=== PATIENT | male | born 1955 | race Caucasian/White ===

== ENCOUNTER → 2016-10-05 | Day surgery (SDC) | payer OTHER ==
[~2016-10-05] MED LIST: Acetaminophen TAB* 325 MG PO PRN; Buffered Lidocaine 1% SYR 3ML* 3 ML/SYR SYRINGE INTRADERM ONE; Buffered Lidocaine 1% SYR 3ML* 3 ML/SYR SYRINGE ONE; Cyclopentolate 1% OPTH.SOL* 2 ML BTL ONE; Flurbiprofen 0.03% OPTH.SOL* 2.5 ML BTL ONE; Lidocaine 1% MPF* 2 ML VIAL ONE; Lidocaine 2% EPI 1:200000 MPF* 20 ML VIAL ONE; Midazolam* 1 MG/ML 2 ML VIAL (2 MG) ONE; Neomycin/Polymy/Dex OPTH.SUSP* MAXITROL 0.1% 5 ML ONE; Phenylephrine 2.5% OPTH.SOL* 2 ML BTL ONE; Povidone Iodine 5% OPTH* 30 ML BTL ONE; Proparacaine 0.5% OPHTH.SOL* 15 ML BTL ONE; acetaZOLAMIDE TAB* 250 MG ONE
[2016-10-05 11:32] VITALS: BP 136/70
--- NOTE | 2016-10-05 13:05 | OP ---
DATE OF OPERATION: 10/05/16 - LOCATED WITHIN [facility] DATE OF : 51 SURGEON: Wayne Eid M.D. PREOPERATIVE DIAGNOSIS: Cataract, right eye. POSTOPERATIVE DIAGNOSIS: Cataract, right eye. OPERATIVE PROCEDURE: Phacoemulsification, right eye, with IOL. DESCRIPTION OF PROCEDURE: The patient was brought to the operating room after being given 1/2% Alcaine with epinephrine drops in the preoperative area. The eye was prepped and draped in the usual sterile fashion. Sterile drape and eyelid speculum were placed. Again, topical 1/2% Alcaine with epinephrine was given. A paracentesis incision was made at the 9 o'clock position with the No.75 blade. Clear cornea incision 2.2 x 2.2-mm was created at the 12 o'clock position starting at the anterior limbus using the 2.2-mm keratome. The anterior chamber was irrigated with 0.4 mL of 1% non-preservative intracameral lidocaine and filled with DisCoVisc. A capsulorrhexis was completed using the cystotome and the Utrata forceps. Hydrodissection was performed with balanced salt solution. The lens nucleus was removed with the Phacoemulsification handpiece without incident. Cortex was removed with the irrigation-aspiration handpiece. The capsular bag was re-inflated using DisCoVisc and an SN60WF 23.5 implant was inserted with the shooter. The irrigation-aspiration handpiece was used to remove all residual DisCoVisc. The eye was refilled with balanced salt solution and the wound checked and found to be watertight. Topical Maxitrol drops were given. The pupil was very small and a Malyugin ring was used to dilate the pupil prior to capsulorrhexis, removed after insertion of the lens. Indication for complex cataract surgery: Iris abnormalities requiring pupil dilation device. [id number]/[facility] #: [id number] MTDD
== END | disposition home or self-care (01) ==
LOC: OREAST 08:03
PROVIDERS: ATTEND Specialist
DX: H25.11 Age-related nuclear cataract, right eye (principal); H21.569 Pupillary abnormality, unspecified eye; E11.9 Type 2 diabetes mellitus without complications; Z87.891 Personal history of nicotine dependence; E78.5 Hyperlipidemia, unspecified; G71.11 Myotonic muscular dystrophy
CPT/HCPCS: A9270-GY; J2250; V2632

== ENCOUNTER → 2016-10-12 | Day surgery (SDC) | payer OTHER ==
[~2016-10-12] MED LIST changes: +fentaNYL* 50 MCG/ML 2 ML VIAL (100 MCG VIAL) ONE
[2016-10-12 09:22] VITALS: BP 133/78
--- NOTE | 2016-10-12 23:05 | OP ---
DATE OF OPERATION: 10/12/16 - [facility] DATE OF : 51 SURGEON: Wayne Eid MD PREOPERATIVE DIAGNOSIS: Cataract, left eye. POSTOPERATIVE DIAGNOSIS: Cataract, left eye. OPERATIVE PROCEDURE: Phacoemulsification, left eye, with IOL. PROCEDURE: The patient was brought to the operating room after being given 1/2 % Alcaine with epinephrine drops in the preoperative area. The eye was prepped and draped in the usual sterile fashion. Sterile drape and eyelid speculum were placed. Again, topical 1/2% Alcaine with epinephrine was given. A paracentesis incision was made at the 3 o'clock position with the No.75 blade. Clear cornea incision 2.2 x 2.2-mm was created at the 6 o'clock position starting at the anterior limbus using the 2.2-mm keratome. The anterior chamber was irrigated with 0.4 mL of 1% non-preservative intracameral lidocaine and filled with DisCoVisc. A capsulorrhexis was completed using the cystotome and the Utrata forceps. Hydrodissection was performed with balanced salt solution. The lens nucleus was removed with the Phacoemulsification handpiece without incident. Cortex was removed with the irrigation-aspiration handpiece. The capsular bag was re-inflated using DisCoVisc and an [id number] 23.5 implant was inserted with the shooter. The irrigation-aspiration handpiece was used to remove all residual DisCoVisc. The eye was refilled with balanced salt solution and the wound checked and found to be watertight. Topical Maxitrol drops were given. A Malyugin ring was used to dilate the pupil prior to capsulorrhexis and removed after insertion of the lens. Indication for complex cataract surgery is iris abnormalities requiring pupil dilation device. [id number]/[facility] #: [id number] MTDKayla
== END | disposition home or self-care (01) ==
LOC: OREAST 06:47
PROVIDERS: ATTEND Specialist
DX: H25.12 Age-related nuclear cataract, left eye (principal); E11.9 Type 2 diabetes mellitus without complications; I10 Essential (primary) hypertension
CPT/HCPCS: A9270-GY; J2250; J3010; V2632

== ENCOUNTER 2017-05-26 11:48 | Day surgery (SDC) | payer OTHER ==
--- NOTE | 2017-05-24 16:58 | HP ---
CC: Dr. Mccullough * DATE OF ADMISSION: 05/26/2017. AGE: 62-year-old male. ADMITTING DIAGNOSES: 1. Gross hematuria. 2. Left flank pain. 3. Left renal calculus. PLANNED PROCEDURE: Left retrograde and left stent insertion (to be followed in the near future by shockwave lithotripsy). SURGEON: Dr. Matthew Lizama. HISTORY OF PRESENT ILLNESS: Aly Ren is a 62-year-old gentleman with a history of recurrent bilateral renal calculi. He had been evaluated for left- sided pain and gross hematuria, and was noted to have a 1.5 cm calculus in the left renal pelvis which appeared to have moved from its prior location in the lower pole of the left kidney. In addition, he has an 8 mm calculus in the lower pole of the left kidney. He is now being brought in for left stent insertion. As I suspect, the pain and hematuria are due to episodic movement of the calculus. He will probably require lithotripsy in the near future. PAST MEDICAL HISTORY: Significant for: 1. Recurrent renal calculi. 2. Myotonic dystrophy. 3. Diabetes mellitus. 4. High cholesterol. MEDICATIONS ON ADMISSION: 1. Flomax 0.8 mg daily. 2. Metformin 500 mg b.i.d. 3. Aspirin 81 mg a day. 4. Doxepin one tablet daily. 5. Atorvastatin one tablet daily. ALLERGIES: CODEINE. SMOKING HISTORY: He is a long-standing smoker with a 40+ pack year smoking history. PHYSICAL EXAMINATION GENERAL: Pleasant, uncomfortable appearing, middle-aged gentleman. VITAL SIGNS: Blood pressure 116/72, pulse 89 per minute and regular, oxygen saturation 98 percent, temperature 96.4. CARDIOVASCULAR: Regular rate and rhythm. S1, S2. LUNGS: Clear bilaterally. ABDOMEN: Soft with mild left flank tenderness. IMPRESSION: [id number]-[id number]-tmtn-old gentleman with episodic left-sided pain and gross hematuria with a 1.5 cm calculus in the left renal pelvis. PLAN: Planned procedure is left stent insertion to be followed in the near future by lithotripsy. [id number]/[facility] #: [id number] MTDD
[~2017-05-26 11:48] MED LIST changes: -Acetaminophen TAB* 325 MG PO PRN; +Buffered Lidocaine 0.9% SYRIN* 5 ML/SYR SYRINGE INTRADERM ONE; -Buffered Lidocaine 1% SYR 3ML* 3 ML/SYR SYRINGE INTRADERM ONE; -Buffered Lidocaine 1% SYR 3ML* 3 ML/SYR SYRINGE ONE; -Cyclopentolate 1% OPTH.SOL* 2 ML BTL ONE; +Famotidine IV* 10 MG/ML 2 ML (20 mg) IV ONE; -Flurbiprofen 0.03% OPTH.SOL* 2.5 ML BTL ONE; -Lidocaine 1% MPF* 2 ML VIAL ONE; -Lidocaine 2% EPI 1:200000 MPF* 20 ML VIAL ONE; -Midazolam* 1 MG/ML 2 ML VIAL (2 MG) ONE; -Neomycin/Polymy/Dex OPTH.SUSP* MAXITROL 0.1% 5 ML ONE; -Phenylephrine 2.5% OPTH.SOL* 2 ML BTL ONE; -Povidone Iodine 5% OPTH* 30 ML BTL ONE; -Proparacaine 0.5% OPHTH.SOL* 15 ML BTL ONE; -acetaZOLAMIDE TAB* 250 MG ONE; -fentaNYL* 50 MCG/ML 2 ML VIAL (100 MCG VIAL) ONE
[2017-05-26] MEDS ORDERED: Famotidine IV* 10 MG/ML 2 ML (20 mg) ONE (11:51)
[2017-05-26] MEDS ORDERED: cefTRIAXone(*) 2 GM ADDV.VIAL IVPB ONE (11:51)
[2017-05-26] MEDS ORDERED: Buffered Lidocaine 0.9% SYRIN* 5 ML/SYR SYRINGE ONE (11:52)
[2017-05-26] MEDS ORDERED: Ondansetron INJ* 2 MG/ML VIAL ONE (12:14)
[2017-05-26] MEDS ORDERED: Midazolam* 1 MG/ML 5 ML VIAL (5 MG) ONE (12:14)
[2017-05-26] MEDS ORDERED: Propofol* 10 MG/ML 20 ML BTL IV PUSH ONE (12:14)
[2017-05-26] MEDS ORDERED: Ketorolac INJ* 30 MG/ML 1 ML VIAL ONE (12:14)
[2017-05-26] MEDS ORDERED: Lidocaine 2% PF * 5 ML VIAL ONE (12:14)
[2017-05-26] MEDS ORDERED: Dexamethasone IV* 4 MG/ML 1 ML (4 MG) ONE (12:14)
[2017-05-26] MEDS ORDERED: fentaNYL* 50 MCG/ML 2 ML VIAL (100 MCG VIAL) ONE (12:14)
[2017-05-26] MEDS ORDERED: oxyCODONE TAB* 5 MG TAB PO PRN (12:34)
[2017-05-26] MEDS ORDERED: Acetaminophen TAB* 325 MG PO PRN (12:34)
[2017-05-26] MEDS ORDERED: HYDROmorphone INJ* 1 MG/ML CARPUJECT SYRINGE IV PRN (12:34)
[2017-05-26] MEDS ORDERED: DiMENhydriNATE IV* 50 MG/ML VIAL IV PUSH PRN (12:34)
[2017-05-26] MEDS ORDERED: Iohexol 180 (CONTRAST) 10 ML SDV IV ONE (12:54)
--- NOTE | 2017-05-26 14:18 | RAD ---
INDICATION: Left ureteral stent insertion COMPARISONS: February 29, 2016 TECHNIQUE: Fluoroscopy was provided for a retrograde pyelogram and stent placement. Total fluoroscopy time is: 3 seconds FINDINGS: Spot images demonstrate contrast within the renal parenchyma consistent. A ureteral stent is noted IMPRESSION: FLUOROSCOPY WAS PROVIDED FOR A RETROGRADE PYELOGRAM AND STENT PLACEMENT CPT II Codes: 6045F
[2017-05-26 14:55] VITALS: BP 126/72
--- NOTE | 2017-05-27 05:55 | OP ---
CC: Dr. Mccullough * DATE OF OPERATION: 05/26/17 - [facility] DATE OF : 51 SURGEON: Matthew Lizama MD ANESTHESIOLOGIST: Dr. Merino. ANESTHESIA: Intravenous sedation. PRE-OP DIAGNOSES: 1. Left renal calculus. 2. Gross hematuria. POST-OP DIAGNOSES: 1. Left renal calculus. 2. Gross hematuria. OPERATIVE PROCEDURE: Cystoscopy, left retrograde pyelogram, left stent insertion. COMPLICATIONS: None. POSTOPERATIVE CONDITION: Stable. STENT USED: 6-Icelandic stent left ureter. INDICATIONS: Aly Ren is a 62-year-old gentleman who was evaluated for gross hematuria. He was noted to have a calculus in the left renal pelvis and is now being brought in for left stent insertion to be followed in the near future by lithotripsy. DESCRIPTION OF PROCEDURE: After induction of intravenous sedation, patient was placed in dorsal lithotomy position. Sequential compression devices were in place and functioning. Initial cystoscopy revealed a normal-appearing urethra, mildly enlarged prostate, the bladder was examined. The left orifice was intubated with a guidewire and left retrograde pyelogram revealed mild fullness of the left collecting system. A 6-Icelandic stent was introduced and positioned under fluoroscopy with good proximal and distal positioning obtained. The patient tolerated the procedure satisfactorily and was transferred back to the recovery area in stable condition. [id number]/[facility] #: [id number] MTDD
== END 2017-05-26 14:57 | disposition home or self-care (01) ==
LOC: OR 11:48
PROVIDERS: ATTEND Urology
DX: N20.0 Calculus of kidney (principal); R31.0 Gross hematuria; Z96.0 Presence of urogenital implants; N40.0 Benign prostatic hyperplasia without lower urinary tract symptoms; E11.9 Type 2 diabetes mellitus without complications; Z79.84 Long term (current) use of oral hypoglycemic drugs; E78.00 Pure hypercholesterolemia, unspecified; F17.200 Nicotine dependence, unspecified, uncomplicated; F41.9 Anxiety disorder, unspecified; F32.9 Major depressive disorder, single episode, unspecified; Z88.5 Allergy status to narcotic agent; Z79.82 Long term (current) use of aspirin
CPT/HCPCS: 74420; C1876; J0696; J1100; J1885; J2250; J2405; J2704; J3010

== ENCOUNTER 2017-06-05 09:15 | Day surgery (SDC) | payer OTHER ==
[~2017-06-05 09:15] MED LIST changes: -Famotidine IV* 10 MG/ML 2 ML (20 mg) IV ONE
[2017-06-05] MEDS ORDERED: Buffered Lidocaine 0.9% SYRIN* 5 ML/SYR SYRINGE ONE (09:26)
[2017-06-05] MEDS ORDERED: cefTRIAXone(*) 2 GM ADDV.VIAL IVPB ONE (09:26)
--- NOTE | 2017-06-05 09:41 | RAD ---
Indication: Prelithotripsy. [facility] Associate Professor film of the abdomen demonstrates left ureteral stent in place. Calcification is noted adjacent to the L3 transverse process on the left. Additional calcifications are noted in the lower pole left kidney. IMPRESSION: Calcification presumably next to the ureter at the L3 spinous process of the left with additional calcification lower pole left kidney.
[2017-06-05] MEDS ORDERED: Midazolam* 1 MG/ML 2 ML VIAL (2 MG) ONE (10:47)
[2017-06-05] MEDS ORDERED: fentaNYL* 50 MCG/ML 2 ML VIAL (100 MCG VIAL) ONE (10:47)
[2017-06-05] MEDS ORDERED: fentaNYL* 50 MCG/ML 2 ML VIAL (100 MCG VIAL) IV PRN (11:16)
[2017-06-05] MEDS ORDERED: oxyCODONE/Acetamin 5/325 MG* TAB PO PRN (11:16)
[2017-06-05] MEDS ORDERED: Chloroprocaine 2%* 20 ML VIAL ONE (11:25)
[2017-06-05 13:07] VITALS: BP 132/76
--- NOTE | 2017-06-05 14:11 | RAD ---
Indication: Status post lithotripsy. Left renal calculi Comparison is made with exam done earlier the same day. Single view of the abdomen demonstrates left ureteral stent in place. Calcifications are noted overlying the lower pole of the left kidney previously identified calcification adjacent to the L3 transverse process is no longer present. IMPRESSION: Calculi in the left ureter appears 3 no longer present.
--- NOTE | 2017-06-06 04:43 | OP ---
CC: Dr. Meghan Mccullough; Dr. Lizama.* OPERATIVE REPORT: DATE OF OPERATION: 06/05/17 - [facility] DATE OF : 51 SURGEON: Matthew Lizama MD ANESTHESIOLOGIST: Dr. Paula. ANESTHESIA: Spinal. PRE-OP DIAGNOSIS: Left renal calculi. POST-OP DIAGNOSIS: Left renal calculi. OPERATIVE PROCEDURE: Shockwave lithotripsy of left renal calculi. COMPLICATIONS: None. POSTOPERATIVE CONDITION: Stable. INDICATIONS: Aly Ren is a 62-year-old gentleman who was evaluated and noted to have a 1.5 cm calculus in the left renal pelvis. In addition, he has a 7 to 8 mm calculus in the lower pole of the left kidney. I have discussed the procedure of lithotripsy in detail with him including possible risks of bleeding, infection, incomplete fragmentation, and possible injury to the kidney. He understands and wishes to proceed as planned. DESCRIPTION OF PROCEDURE: After induction of spinal anesthesia, patient was placed on the lithotripsy table in supine position. The dominant calculus, which was in the renal pelvis was identified using fluoroscopy and shockwave lithotripsy was commenced at a rate of 90 shocks per minute. Intermittent fluoroscopy revealed good localization and fragmentation and a total of 1400 shocks were administered. Next attention was directed to the lower pole calculus, which was identified using fluoroscopy and targeted with shockwaves at a rate of 90 shocks per minute. After the initial 300 shocks were delivered to this calculus, there was a pause in lithotripsy for several minutes in an effort to minimize any potential trauma to the kidney. A total of 1000 shocks were administered to this calculus for a total amount of 2400 shocks during the procedure. Patient tolerated the procedure satisfactorily and was transferred back to the recovery area in stable condition. [id number]/[facility] #: [id number] [facility]
== END 2017-06-05 13:42 | disposition home or self-care (01) ==
LOC: OR 09:15
PROVIDERS: ATTEND Urology
DX: N20.0 Calculus of kidney (principal); R31.0 Gross hematuria; E11.9 Type 2 diabetes mellitus without complications; Z79.84 Long term (current) use of oral hypoglycemic drugs; G71.11 Myotonic muscular dystrophy; E78.00 Pure hypercholesterolemia, unspecified; F17.210 Nicotine dependence, cigarettes, uncomplicated
CPT/HCPCS: 74000; J0696; J2250; J2400; J3010

== ENCOUNTER 2018-01-02 21:44 | Emergency (ER) | payer BC, OTHER ==
[2018-01-02] MEDS ORDERED: diPHENhydraMINE IV* 50 MG/ML 1 ml VIAL (BENADRYL) IV ONE (22:27)
[2018-01-02] MEDS ORDERED: NS 0.9% 1000 ML* 1,000 ML IV ONE (22:27)
[2018-01-02] MEDS ORDERED: Meclizine TAB* 12.5 MG PO ONE (22:28)
[2018-01-02 23:03] LABS: ABS Basophils 0 10^3/ul (0-0.2); ABS Eosinophils 0 10^3/ul (0-0.6); ABS Lymphocytes 0.3 10^3/ul (1.0-4.8); ABS Monocytes 0.4 10^3/ul (0-0.8); ABS Nucleated RBC 0 10^3/ul; Eosinophil % 0.6 % (0-6); Hematocrit 44 % (42-52); Hemoglobin 15.3 g/dl (14.0-18.0); Lymphocyte % 5.6 % (25-47); Mean Corpuscular HGB Conc 35 g/dl (31-36); Mean Corpuscular Hemoglobin 31 pg (27-31); Mean Corpuscular Volume 89 fL (80-94); Mean Platelet Volume 8.9 um3 (7.4-10.4); Nucleated Red Blood Cells % 0.4; Platelet Count 145 10^3/ul (150-450); Red Blood Count 4.91 10^6/ul (4.0-5.4); Red Cell Distribution Width 15 % (10.5-15); White Blood Count 5.7 10^3/ul (3.5-10.8)
[2018-01-02 23:12] LABS: EGFR Non-African American 100.2 (>60)
[2018-01-03 01:06] LABS: Urine Appearance Clear; Urine Blood 1+ (Negative); Urine Color Yellow; Urine Ketones Negative (Negative); Urine Protein Negative (Negative); Urine Specific Gravity 1.015 (1.010-1.030); Urine Urobilinogen Positive (Negative)
[2018-01-03 01:30] VITALS: BP 174/90
--- NOTE | 2018-01-03 04:56 | ED ---
Ramiro Irby Jennifer, scribed for Benny Power MD on 01/02/18 at 2217 . Dizziness - HPI Summary HPI Summary: The patient is a 62 year old male who complains of dizziness with nausea that began a few hours ago. The patient reports he was sitting down watching TV and eating dinner when he got suddenly became really dizzy and nauseous and started sweating like mad. He additionally complains of a sticky mouth and felt like he was going to pass out. The patient denies chest pain, shortness of breath, headache, numbness, weakness, trouble with speech, and any pain. He complains that he is still very nauseous in the ED. - History Of Current Complaint Chief Complaint: EDDizziness Stated Complaint: DIZZINESS/NAUSEA/SWEATING Time Seen by Provider: 01/02/18 22:02 Hx Obtained From: Patient Onset/Duration: Still Present, Suddenly Timing: Hours Severity Initially: Mild Severity Currently: Mild Character: Unable To Describe Aggravating Factor(s): Nothing Alleviating Factor(s): Nothing Associated Signs And Symptoms: Positive: Other: - nausea, dizziness, sweating, sticky mouth. NEGATIVE: chest pain, shortness of breath, headache, numbness, weakness, trouble with speech, any pain - Allergies/Home Medications Allergies/Adverse Reactions: Allergies Allergy/AdvReac Type Severity Reaction Status Date / Time codeine Allergy Rash And Verified 01/02/18 21:51 Itching PMH/Surg Hx/FS Hx/Imm Hx Endocrine/Hematology History: Reports: Hx Diabetes - TYPE II- ON MEDS Cardiovascular History: Denies: Hx Congestive Heart Failure, Hx Hypertension, Other Cardiovascular Problems/Disorders Respiratory History: Denies: Other Respiratory Problems/Disorders GI History: Reports: Hx Diverticulosis, Hx Gastroesophageal Reflux Disease - VERY MILD Denies: Other GI Disorders History: Reports: Hx Kidney Stones - HISTORY OF AND CURRENTLY X4 SX BOTH SIDES, Hx Renal Disease - STONES Denies: Other Problems/Disorders Musculoskeletal History: Reports: Other Musculoskeletal History - myotonic dystrophy Denies: Hx Arthritis, Hx Gout Sensory History: Reports: Hx Cataracts - BILATERAL, Hx Contacts or Glasses - glasses, Hx Hearing Problem - mildly MOAPA Denies: Hx Hearing Aid Opthamlomology History: Reports: Hx Cataracts - BILATERAL, Hx Contacts or Glasses - glasses Neurological History: Reports: Hx Migraine - HX OF, NONE RECENT, Other Neuro Impairments/Disorders - MYOTONIC DYSTROPHY Denies: Hx Seizures Psychiatric History: Reports: Hx Anxiety - WELL CONTROLLED- ON MEDICATION FOR, Hx Depression - WELL CONTROLLED- ON MEDICATION FOR, Hx Suicide Attempt Denies: Hx Substance Abuse - Cancer History Hx Chemotherapy: No - Surgical History Surgery Procedure, Year, and Place: Kidney stones 2010 [facility] [place] HERNIA REPAIR 1999. SINUS SURGERY MANY YRS AGO. VASECTOMY . 12/2015-RIGHT KIDNEY STONE SURGERY AND STENT INSERTION. 01/29/16, LEFT URETERAL STENT, [facility] Hx Anesthesia Reactions: No Infectious Disease History: No Infectious Disease History: Denies: Traveled Outside the [place] in Last 30 Days - Family History Known Family History: Negative: Diabetes - Social History Alcohol Use: Rare Alcohol Amount: 1 Q3 WEEKS Substance Use Type: Reports: None Smoking Status (MU): Former Smoker Type: eCigarettes Amount Used/How Often: USES E-CIG//1 PPD X 40 YEARS PRIOR TO E-CIGARETTES Length of Time of Smoking/Using Tobacco: 40+ YRS Have You Smoked in the Last Year: No Review of Systems Positive: Skin Diaphoresis Positive: Other - sticky mouth Negative: Chest Pain Negative: Shortness Of Breath Positive: Nausea Negative: Myalgia Neurological: Other - Dizziness Negative: Headache, Weakness, Numbness, Syncope, Slurred Speech All Other Systems Reviewed And Are Negative: Yes Physical Exam - Summary Physical Exam Summary: Appearance: Well appearing, no pain distress Skin: warm, dry, reflects adequate perfusion Head/face: normal Eyes: Bilateral implanted lenses, EOMI, VON ENT: normal, moist mucous membranes Neck: thyromegaly, supple, non-tender Respiratory: CTA, breath sounds present Cardiovascular: RRR, pulses symmetrical Abdomen: non-tender, soft Bowel Sounds: present Musculoskeletal: normal, strength/ROM intact, no peripheral edema Neuro: normal, sensory motor intact, A&Ox3 Triage Information Reviewed: Yes Vital Signs On Initial Exam: Initial Vitals Temp Pulse Resp BP Pulse Ox 97.1 F 96 16 118/88 98 01/02/18 21:49 01/02/18 21:49 01/02/18 21:49 01/02/18 21:49 01/02/18 21:49 Vital Signs Reviewed: Yes Diagnostics - Vital Signs Vital Signs Temp Pulse Resp BP Pulse Ox 01/02/18 21:49 97.1 F 96 16 118/88 98 - Laboratory Lab Results: Lab Results 01/02/18 01/02/18 01/03/18 Range/Units 22:45 22:45 00:41 WBC 5.7 (3.5-10.8) 10^3/ul RBC 4.91 (4.0-5.4) 10^6/ul Hgb 15.3 (14.0-18.0) g/dl Hct 44 (42-52) % MCV 89 (80-94) fL MCH 31 (27-31) pg MCHC 35 (31-36) g/dl RDW 15 (10.5-15) % Plt Count 145 L (150-450) 10^3/ul MPV 8.9 (7.4-10.4) um3 Neut % (Auto) 86.4 H (38-83) % Lymph % (Auto) 5.6 L (25-47) % Wells % (Auto) 7.0 (0-7) % Eos % (Auto) 0.6 (0-6) % Baso % (Auto) 0.4 (0-2) % Absolute Neuts (auto) 5.0 (1.5-7.7) 10^3/ul Absolute Lymphs (auto) 0.3 L (1.0-4.8) 10^3/ul Absolute Monos (auto) 0.4 (0-0.8) 10^3/ul Absolute Eos (auto) 0 (0-0.6) 10^3/ul Absolute Basos (auto) 0 (0-0.2) 10^3/ul Absolute Nucleated RBC 0 10^3/ul Nucleated RBC % 0.4 Sodium 139 (139-145) mmol/L Potassium TNP Chloride 107 (101-111) mmol/L Carbon Dioxide 21 L (22-32) mmol/L Anion Gap 11 (2-11) mmol/L BUN 16 (6-24) mg/dL Creatinine 0.78 (0.67-1.17) mg/dL Est GFR ( Amer) 128.9 (>60) Est GFR (Non-Af Amer) 100.2 (>60) BUN/Creatinine Ratio 20.5 H (8-20) Glucose 160 H (70-100) mg/dL Calcium 9.3 (8.6-10.3) mg/dL Total Bilirubin 1.10 H (0.2-1.0) mg/dL AST TNP ALT 35 (7-52) U/L Alkaline Phosphatase 69 (34-104) U/L Troponin I 0.00 (<0.04) ng/mL Total Protein 6.8 (6.4-8.9) g/dL Albumin 4.2 (3.2-5.2) g/dL Globulin 2.6 (2-4) g/dL Albumin/Globulin Ratio 1.6 (1-3) Urine Color Yellow Urine Appearance Clear Urine pH 5.0 (5-9) Ur Specific Rohwer 1.015 (1.010-1.030) Urine Protein Negative (Negative) Urine Ketones Negative (Negative) Urine Blood 1+ A (Negative) Urine Nitrate Negative (Negative) Urine Bilirubin Negative (Negative) Urine Urobilinogen Positive A (Negative) Ur Leukocyte Esterase Trace A (Negative) Urine WBC (Auto) Trace(0-5/hpf) (Absent) Urine RBC (Auto) 3+(>10/hpf) A (Absent) Urine Bacteria Absent (Absent) Urine Glucose Negative (Negative) Result Diagrams: 01/02/18 22:45 01/02/18 22:45 Lab Statement: Any lab studies that have been ordered have been reviewed, and results considered in the medical decision making process. - CT CT Brain CT Interpretation: No Acute Changes - No acute disease. CT Interpretation Completed By: ED Physician - EKG 22:01 Cardiac Rate: NL EKG Rhythm: Sinus Rhythm - 92 BPM EKG Interpretation: Left axis deviation, normal intervals, normal ST Re-Evaluation - Re-Evaluation First Eval Re-Evaluation Time: 00:06 Change: Unchanged Comment: Pt is catheterized. Dizzy Course/Dx - Course Course Of Treatment: Patient with abrupt onset of dizziness which he can't really characterize. It does not seem to be rotational. Hallpike testing is negative. Blood pressures have been normal. He is not orthostatic. Laboratories are unremarkable. He was hydrated here and had resolution of symptoms. He required straight catheter for urine which also was normal. He is discharged in good condition to follow up closely with his primary care physician. - Diagnoses Differential Diagnosis/HQI/PQRI: Anxiety, Benign Paroxysmal Positional Vertigo, Hyperventilation, Hypovolemia, Medication Reaction, Metabolic Abnormality, Vasovagal Reaction Provider Diagnoses: Lightheadedness, Myotonic dystrophy, type 2 Discharge - Sign-Out/Discharge Documenting (check all that apply): Discharge/Admit/Transfer - Discharge Plan Condition: Good Disposition: HOME Patient Education Materials: Lightheadedness (ED) Referrals: Meghan Mccullough MD [Primary Care Provider] - Additional Instructions: Should this recur, sit or lay down immediately. Drink plenty of fluids. Eat a regular diet. Call first thing in the morning for follow-up with your physician. Return if worse, fevers, severe headaches, new Symptoms or other concerns. - Billing Disposition and Condition Condition: GOOD Disposition: HOME The documentation as recorded by the Ramiro cheung Jennifer accurately reflects the service I personally performed and the decisions made by me, Benny Power MD.
--- NOTE | 2018-01-03 07:39 | RAD ---
INDICATION: Vertigo and dizziness. COMPARISON: Comparison is made with a prior CT of the brain from September 11, 2014. TECHNIQUE: Contiguous axial sections of the brain were obtained from the skull base to the vertex without contrast. FINDINGS: The ventricles, cisterns and sulci are enlarged consistent with age-related atrophy. No significant focal abnormality or mass effect is seen. There is no evidence for hemorrhage. No significant focal osseous abnormality is seen. The visualized portion of the paranasal sinuses and mastoid air cells appear clear. The patient appears to be status post functional endoscopic paranasal sinus surgery. IMPRESSION: NO EVIDENCE FOR GROSS ACUTE INFARCT, MASS EFFECT OR HEMORRHAGE.
== END 2018-01-03 01:31 | disposition home or self-care (01) ==
LOC: ED 21:44
DX: R42 Dizziness and giddiness (principal); G71.11 Myotonic muscular dystrophy; E11.9 Type 2 diabetes mellitus without complications; Z79.84 Long term (current) use of oral hypoglycemic drugs; R11.0 Nausea; K21.9 Gastro-esophageal reflux disease without esophagitis; Z87.442 Personal history of urinary calculi; F41.9 Anxiety disorder, unspecified; F32.9 Major depressive disorder, single episode, unspecified; Z91.5 Personal history of self-harm; Z88.5 Allergy status to narcotic agent; Z87.891 Personal history of nicotine dependence
CPT/HCPCS: 36415; 70450; 80053; 81003; 81015; 84484; 85025; 87086; 93005; 96361; 96374; 99284; A9270-GY; J1200

== ENCOUNTER 2018-01-13 15:21 | Day surgery (SDC) | payer SELFPAY ==
[2018-01-13] MEDS ORDERED: Ondansetron INJ* 2 MG/ML VIAL IV ONE (15:59)
[2018-01-13] MEDS ORDERED: HYDROmorphone INJ* 1 MG/ML CARPUJECT SYRINGE IV ONE (15:59)
[2018-01-13] MEDS ORDERED: Ketorolac INJ* 30 MG/ML 1 ML VIAL IV ONE (15:59)
[2018-01-13 16:49] LABS: ABS Basophils 0.1 10^3/ul (0-0.2); ABS Eosinophils 0 10^3/ul (0-0.6); ABS Lymphocytes 0.4 10^3/ul (1.0-4.8); ABS Monocytes 0.7 10^3/ul (0-0.8); ABS Neutrophils 6.7 10^3/ul (1.5-7.7); ABS Nucleated RBC 0 10^3/ul; Eosinophil % 0.2 % (0-6); Hematocrit 45 % (42-52); Hemoglobin 15.7 g/dl (14.0-18.0); Lymphocyte % 5.5 % (25-47); Mean Corpuscular HGB Conc 35 g/dl (31-36); Mean Corpuscular Hemoglobin 31 pg (27-31); Mean Corpuscular Volume 88 fL (80-94); Mean Platelet Volume 8.4 um3 (7.4-10.4); Nucleated Red Blood Cells % 0.1; Platelet Count 175 10^3/ul (150-450); Red Cell Distribution Width 15 % (10.5-15); White Blood Count 7.9 10^3/ul (3.5-10.8)
[2018-01-13] MEDS ORDERED: PROCHLORPERAZINE INJ 5 MG/ML 2 ML VIAL IV PRN (17:00)
[2018-01-13 17:05] LABS: EGFR Non-African American 86.1 (>60)
[2018-01-13] MEDS ORDERED: PROCHLORPERAZINE INJ 5 MG/ML 2 ML VIAL ONE ×2 (17:13→18:38)
--- NOTE | 2018-01-13 17:17 | RAD ---
INDICATION: Left flank abdominal pain. COMPARISON: Comparison is made with a prior CT of the abdomen and pelvis from December 19, 2015. TECHNIQUE: A CT scan of the abdomen and pelvis was performed without intravenous or oral contrast. Contiguous axial sections were obtained from the lung bases through the symphysis pubis. Images were reconstructed in the coronal and sagittal planes. FINDINGS: There is mild dependent bilateral lower lobe subsegmental atelectasis. No pleural effusion is present. The liver and spleen are moderately enlarged and unchanged. No significant focal hepatic abnormality is seen on this noncontrast study although the liver is decreased in attenuation consistent with fatty infiltration which also appears unchanged. No calcified gallstones are noted. There is fatty infiltration of the pancreas. There are couple pancreatic calcifications suggestive of chronic pancreatitis. The adrenal glands are normal in size. There are multiple bilateral renal hypodense lesions most consistent with cysts on this noncontrast study. There is a 0.6 cm calculus present in the left renal pelvis at the ureteropelvic junction causing moderate to severe hydronephrosis. There are several additional smaller calculi in the dependent portion of the renal pelvis measuring up to 0.4 cm in size. In addition there is a 0.9 cm calculus in the lower pole of the left kidney which is in a calyx. The left kidney is slightly enlarged with perinephric stranding. No bladder calculi are seen. The prostate gland is enlarged measuring 6.0 cm in diameter. The abdominal aorta is normal in caliber. There is moderate to severe calcific plaque present. No significant enlarged retroperitoneal lymph nodes are seen. The stomach, small and large bowel appear nondistended. The appendix is within normal limits. There is mild descending and sigmoid diverticulosis without evidence for diverticulitis or colitis. There is a moderate to large amount retained stool present throughout the colon. No free intraperitoneal air or fluid is seen. No significant focal osseous abnormality is seen. IMPRESSION: 1. THERE IS A 0.6 CM CALCULUS AT THE LEFT URETEROPELVIC JUNCTION CAUSING MODERATE TO SEVERE HYDRONEPHROSIS. THERE ARE ADDITIONAL LEFT RENAL CALCULI WITHIN THE RENAL PELVIS AND ALSO WITHIN THE LOWER POLE CALYX. 2. HEPATOSPLENOMEGALY AND HEPATIC STEATOSIS, UNCHANGED. 3. MODERATE TO LARGE AMOUNT RETAINED STOOL.
[2018-01-13] MEDS ORDERED: Famotidine TAB* 20 MG PO ONE (17:39)
[2018-01-13] MEDS ORDERED: Famotidine TAB* 20 MG ONE (17:43)
[2018-01-13] MEDS ORDERED: Scopolamine 1.5 mg* PATCH TRANSDERM PRN (17:46)
[2018-01-13] MEDS ORDERED: oxyCODONE/Acetamin 5/325 MG* TAB PO PRN (17:46)
[2018-01-13] MEDS ORDERED: DiMENhydriNATE IV* 50 MG/ML VIAL IV PUSH PRN (17:46)
[2018-01-13] MEDS ORDERED: Naloxone* 0.4 MG/ML 1 ML VIAL IV PRN (17:46)
[2018-01-13] MEDS ORDERED: fentaNYL* 50 MCG/ML 2 ML VIAL (100 MCG VIAL) IV PRN (17:46)
[2018-01-13] MEDS ORDERED: fentaNYL* 50 MCG/ML 2 ML VIAL (100 MCG VIAL) ONE (17:54)
[2018-01-13] MEDS ORDERED: Midazolam* 1 MG/ML 5 ML VIAL (5 MG) ONE (17:55)
[2018-01-13] MEDS ORDERED: cefTRIAXone(*) 2 GM ADDV.VIAL IVPB ONE (18:02)
--- NOTE | 2018-01-13 18:11 | ED ---
Susy Irby Elizabeth, scribed for Cash Cash MD on 01/13/18 at 1608 . GI/ HPI - HPI Summary HPI Summary: This patient is a 62 year old M presenting to [facility] with a chief complaint of left side pain since last night The patient rates the pain 8/10 in severity. Symptoms aggravated by nothing. Symptoms alleviated by nothing. Patient reports dysuria, increase in urgency and frequency of urination, nausea , vomiting. Patient has a hx of kidney stones. Patient states that he thinks this is another kidney stone. - History of Current Complaint Chief Complaint: EDFlankPain Time Seen by Provider: 01/13/18 15:48 Stated Complaint: LWR ABD PAIN Hx Obtained From: Patient Onset/Duration: Started Hours Ago - started last night Timing: Constant Severity: Moderate Current Severity: Moderate Pain Intensity: 8 Location of Pain: Flank - left flank Associated Signs and Symptoms: Positive: Dysuria Aggravating Factor(s): Nothing Alleviating Factor(s): Nothing - Allergy/Home Medications Allergies/Adverse Reactions: Allergies Allergy/AdvReac Type Severity Reaction Status Date / Time codeine Allergy Rash And Verified 01/02/18 21:51 Itching PMH/Surg Hx/FS Hx/Imm Hx Endocrine/Hematology History: Reports: Hx Diabetes - TYPE II- ON MEDS Cardiovascular History: Denies: Hx Congestive Heart Failure, Hx Hypertension, Other Cardiovascular Problems/Disorders Respiratory History: Denies: Other Respiratory Problems/Disorders GI History: Reports: Hx Diverticulosis, Hx Gastroesophageal Reflux Disease - VERY MILD Denies: Other GI Disorders History: Reports: Hx Kidney Stones - HISTORY OF AND CURRENTLY X4 SX BOTH SIDES, Hx Renal Disease - STONES Denies: Other Problems/Disorders Musculoskeletal History: Reports: Other Musculoskeletal History - myotonic dystrophy Denies: Hx Arthritis, Hx Gout Sensory History: Reports: Hx Cataracts - BILATERAL, Hx Contacts or Glasses - glasses, Hx Hearing Problem - mildly TYONEK Denies: Hx Hearing Aid Opthamlomology History: Reports: Hx Cataracts - BILATERAL, Hx Contacts or Glasses - glasses Neurological History: Reports: Hx Migraine - HX OF, NONE RECENT, Other Neuro Impairments/Disorders - MYOTONIC DYSTROPHY Denies: Hx Seizures Psychiatric History: Reports: Hx Anxiety - WELL CONTROLLED- ON MEDICATION FOR, Hx Depression - WELL CONTROLLED- ON MEDICATION FOR, Hx Suicide Attempt Denies: Hx Substance Abuse - Cancer History Hx Chemotherapy: No - Surgical History Surgery Procedure, Year, and Place[place] [facility] [place]PA[place]. SINUS SURGERY MANY YRS AGO. VASECTOMY . 12/2015-RIGHT KIDNEY STONE SURGERY AND STENT INSERTION. [place]/29/16[place] [facility] [place] Anesthesia Reactions: No Infectious Disease History: No Infectious Disease History: Denies: Traveled Outside the [place] in Last 30 Days - Family History Known Family History: Negative: Diabetes - Social History Alcohol Use: Rare Alcohol Amount: 1 Q3 WEEKS Substance Use Type: Reports: None Smoking Status (MU): Former Smoker Type: eCigarettes Amount Used/How Often: USES E-CIG//1 PPD X 40 YEARS PRIOR TO E-CIGARETTES Length of Time of Smoking/Using Tobacco: 40+ YRS Have You Smoked in the Last Year: No Review of Systems Negative: Chills Negative: Chest Pain Negative: Cough Positive: dysuria, frequency, flank pain - left flank pain, urgency All Other Systems Reviewed And Are Negative: Yes Physical Exam - Summary Physical Exam Summary: Appearance: The patient is well-nourished and in moderate pain distress. Skin: The skin is warm and dry and skin color reflects adequate perfusion. HEENT: The head is normocephalic and atraumatic. The pupils are equal and reactive. The conjunctivae are clear and without drainage. Nares are patent and without drainage. Mouth reveals moist mucous membranes and the throat is without erythema and exudate. The external ears are intact. The ear canals are patent and without drainage. The tympanic membranes are intact. Neck: the neck is supple with full range of motion and non-tender. There are no carotid bruits. There is no neck vein distension. Respiratory: Chest is non-tender. Lungs are clear to auscultation and breath sounds are symmetrical and equal. Cardiovascular: Heart is regular rate and rhythm. There is no murmur or rub auscultated. There is no peripheral edema and pulses are symmetrical and equal. Abdomen: The abdomen is soft and non-tender. There are normal bowel sounds heard in all four quadrants and there is no organomegaly palpated. No CVA tenderness. Musculoskeletal: There is no back tenderness noted. Extremities are non-tender with full range of motion. There is good capillary refill. There is no peripheral edema or calf tenderness elicited. Neurological: Patient is alert and oriented to person, place and time. The patient has symmetrical motor strength in all four extremities. Cranial nerves are grossly intact. Deep tendon reflexes are symmetrical and equal in all four extremities. Psychiatric: The patient has an appropriate affect and does not exhibit any anxiety or depression. Triage Information Reviewed: Yes Vital Signs On Initial Exam: Initial Vitals Temp Pulse Resp BP Pulse Ox 98.5 F 74 16 156/83 98 01/13/18 15:24 01/13/18 15:24 01/13/18 15:24 01/13/18 15:24 01/13/18 15:24 Vital Signs Reviewed: Yes Diagnostics - Vital Signs Vital Signs Temp Pulse Resp BP Pulse Ox 01/13/18 15:24 98.5 F 74 16 156/83 98 - Laboratory Lab Results: Lab Results 01/13/18 01/13/18 01/13/18 Range/Units 16:41 16:41 16:41 WBC 7.9 (3.5-10.8) 10^3/ul RBC 5.10 (4.0-5.4) 10^6/ul Hgb 15.7 (14.0-18.0) g/dl Hct 45 (42-52) % MCV 88 (80-94) fL MCH 31 (27-31) pg MCHC 35 (31-36) g/dl RDW 15 (10.5-15) % Plt Count 175 (150-450) 10^3/ul MPV 8.4 (7.4-10.4) um3 Neut % (Auto) 84.0 H (38-83) % Lymph % (Auto) 5.5 L (25-47) % [place] % (Auto) 9.1 H (0-7) % Eos % (Auto) 0.2 (0-6) % Baso % (Auto) 1.2 (0-2) % Absolute Neuts (auto) 6.7 (1.5-7.7) 10^3/ul Absolute Lymphs (auto) 0.4 L (1.0-4.8) 10^3/ul Absolute Monos (auto) 0.7 (0-0.8) 10^3/ul Absolute Eos (auto) 0 (0-0.6) 10^3/ul Absolute Basos (auto) 0.1 (0-0.2) 10^3/ul Absolute Nucleated RBC 0 10^3/ul Nucleated RBC % 0.1 Sodium 139 (139-145) mmol/L Potassium 4.3 (3.5-5.0) mmol/L Chloride 104 (101-111) mmol/L Carbon Dioxide 26 (22-32) mmol/L Anion Gap 9 (2-11) mmol/L BUN 14 (6-24) mg/dL Creatinine 0.89 (0.67-1.17) mg/dL Est GFR ( Amer) 110.7 (>60) Est GFR (Non-Af Amer) 86.1 (>60) BUN/Creatinine Ratio 15.7 (8-20) Glucose 204 H (70-100) mg/dL Lactic Acid 1.3 (0.5-2.0) mmol/L Calcium 9.4 (8.6-10.3) mg/dL Total Bilirubin 1.70 H (0.2-1.0) mg/dL AST 22 (13-39) U/L ALT 26 (7-52) U/L Alkaline Phosphatase 78 (34-104) U/L C-Reactive Protein 61.60 H (< 5.00) mg/L Total Protein 7.1 (6.4-8.9) g/dL Albumin 4.0 (3.2-5.2) g/dL Globulin 3.1 (2-4) g/dL Albumin/Globulin Ratio 1.3 (1-3) Result Diagrams: 01/13/18 16:41 01/13/18 16:41 Lab Statement: Any lab studies that have been ordered have been reviewed, and results considered in the medical decision making process. - CT Abd/Pelvis CT CT Interpretation: Positive (See Comments) - IMPRESSION: 1. THERE IS A 0.6 CM CALCULUS AT THE LEFT URETEROPELVIC JUNCTION CAUSING MODERATE TO SEVERE HYDRONEPHROSIS. THERE ARE ADDITIONAL LEFT RENAL CALCULI WITHIN THE RENAL PELVIS AND ALSO WITHIN THE LOWER POLE CALYX. 2. HEPATOSPLENOMEGALY AND HEPATIC STEATOSIS, UNCHANGED. 3. MODERATE TO LARGE AMOUNT RETAINED STOOL. Dr. Cash has reviewed this report. CT Interpretation Completed By: Radiologist SHANTHI Course/Dx - Course Course Of Treatment: Mr. Ren presented concerned that he was trying to pass another big kidney stone. He was indeed and Dr. Renner admitted him to the OR for a stent. His U/A had not been obtained at that time. - Diagnoses Provider Diagnoses: Kidney stones Discharge - Sign-Out/Discharge Documenting (check all that apply): Discharge/Admit/Transfer - Discharge Plan Condition: Stable Disposition: ADMITTED TO [facility] - Billing Disposition and Condition Condition: STABLE [place] [facility] [place] The documentation as recorded by the Susy cheung Elizabeth accurately reflects the service I personally performed and the decisions made by me, Cash Cash MD.
[2018-01-13] MEDS ORDERED: Insulin REGULAR(*) 1 UNITS UNIT ONE (18:12)
[2018-01-13] MEDS ORDERED: Iohexol 180 (CONTRAST) 10 ML SDV IV ONE (18:29)
[2018-01-13] MEDS ORDERED: Ondansetron INJ* 2 MG/ML VIAL ONE (18:38)
[2018-01-13] MEDS ORDERED: Labetalol IV* 5 MG/ML 20 ML VIAL ONE (18:44)
[2018-01-13] MEDS ORDERED: Lidocaine 2% PF * 5 ML VIAL ONE (18:44)
[2018-01-13] MEDS ORDERED: Propofol* 10 MG/ML 20 ML BTL IV PUSH ONE (18:44)
--- NOTE | 2018-01-13 20:01 | RAD ---
INDICATION: Left ureteral stent placement. COMPARISON: Correlation is made with a prior CT of the abdomen and pelvis from January 13, 2018. TECHNIQUE: 7 seconds of intermittent fluoroscopic guidance were provided and 3 spot films of the abdomen were centered on the left side. FINDINGS: There is partial opacification of the left renal collecting system. There is dilatation of the renal pelvis and calyces consistent with hydronephrosis. Subsequently there is placement of a double-J stent catheter on the left side which demonstrates normal course. IMPRESSION: INTRAOPERATIVE CONTROL FILMS. CPT II Codes: G9500
[2018-01-13 20:29] VITALS: BP 141/78
--- NOTE | 2018-01-13 21:09 | RAD ---
INDICATION: Status post cystoscopy and left ureteral stent placement. COMPARISON: Comparison is made with a prior CT of the abdomen and pelvis from January 13, 2018. TECHNIQUE: Frontal supine films of the abdomen were obtained. FINDINGS: The small bowel and colon appear nondistended. There is a ureteral stent present on the left side which demonstrate normal course. There are calculi that project adjacent to the proximal aspect of the stent and a calculus in the lower pole of the left kidney. IMPRESSION: STATUS POST LEFT URETERAL STENT PLACEMENT.
--- NOTE | 2018-01-14 01:12 | OP ---
CC: Dr. Meghan Mccullough OPERATIVE REPORT: DATE OF OPERATION: 01/13/18 DATE OF : 51 SURGEON: Eren Renner MD ANESTHESIOLOGIST: Dr. Gordon Patel. ANESTHESIA: General. PRE-OP DIAGNOSES: 1. Right renal colic. 2. Left renal calculi. POST-OP DIAGNOSES: 1. Right renal colic. 2. Left renal calculi. OPERATIVE PROCEDURE: 1. Cystoscopy. 2. Left retrograde pyelography and placement of left ureteral stent (6-Nigerien). INDICATION FOR PROCEDURE: Mr. Ren is a 62-year-old white male who is a known stone former and who had needed shockwave lithotripsy of a left renal calculus last year. He is known to have stable residual left renal calculi, being asymptomatic and observed. He presented to the emergency room this afternoon with 1-day history of symptoms of left renal colic. He did not have fever or chills. His urinalysis showed microhematuria, was negative otherwise. His serum creatinine was normal. Noncontrast CT of the abdomen and pelvis showed an 8-mm non-obstructing in the lower pole calyx of the left kidney and an 8 mm calculus at the left ureteropelvic junction associated with left hydronephrosis and reactive changes around the left kidney possibly indicating extravasation. Because of the above history and CT finding, and considering the size and the location of the UPJ stone, and the fact that the patient is diabetic, he is taken to the operating room on an urgent basis for placement of a left ureteral stent. PATHOLOGY AT CYSTOSCOPY: The penile and bulbar urethrae looked normal. The prostatic urethra measured 2.5 cm in length and there was only moderate obstruction by prostate enlargement. Examination of the bladder showed no suspicious lesions, early trabeculations were noted. The ureteral orifices looked normal. At fluoroscopy, 2 radiopaque calculi were noted in the area of the left kidney. Upon left retrograde pyelography, moderate left hydronephrosis was noted. A hydronephrotic drip was noted from the left kidney when the open-ended catheter was placed. DESCRIPTION OF PROCEDURE: After successful general anesthesia, the patient was placed in the lithotomy position and was prepped and draped for a cystoscopy. Cystoscopy was performed. The bladder was carefully inspected and the above findings were noted. A flexible-tip guidewire was then introduced into the left orifice and positioned in the area of the renal pelvis. An open-ended catheter was then fed on top of the guidewire and positioned in the renal pelvis. Hydronephrotic drip was noted. When it slowed down, 3 cc of contrast were injected delineating the collecting system.. A size 6-Nigerien stent was then placed with the proximal end coiling in the renal pelvis and the distal end coiling inside the bladder. There was good drainage of contrast from the kidney. The bladder was then emptied and the cystoscope was removed. The patient tolerated the procedure well and left the operating room in good condition. The plan is to obtain KUB postoperatively and will decide on the definitive treatment of the stone. [id number]/CPS #: [id number] RUDY
[2018-01-16] MEDS ORDERED: Scopolamine PATCH Remove* 1 NOTE MISC PATCH OFF ONE (17:47)
== END 2018-01-13 20:45 | disposition home or self-care (01) ==
LOC: ED 15:21 → OR 17:34 → ED 17:56 → OR 20:45
PROVIDERS: ATTEND Urology
DX: N13.2 Hydronephrosis with renal and ureteral calculous obstruction (principal); R31.29 Other microscopic hematuria; R10.32 Left lower quadrant pain; R30.0 Dysuria; E11.9 Type 2 diabetes mellitus without complications; Z79.4 Long term (current) use of insulin; F17.290 Nicotine dependence, other tobacco product, uncomplicated; E78.5 Hyperlipidemia, unspecified
CPT/HCPCS: 36415; 74018; 74176; 74420; 80053; 83605; 85025; 86140; 96374; 96375; 99283; A9270-GY; C1876; J0696; J0780; J1885; J2250; J2405; J2704; J3010

== ENCOUNTER 2018-01-18 19:22 | Inpatient (IN) | payer BC, MEDICARE ==
[2018-01-18] MEDS ORDERED: Levofloxacin 750 MG IVPREMIX(* 750 MG/150 ML BAG IVPB ONE (19:51)
[2018-01-18] MEDS ORDERED: NS 0.9% 1000 ML* 1,000 ML IV ONE ×2 (19:51→19:52)
[2018-01-18 20:51] LABS: ABS Basophils 0 10^3/ul (0-0.2); ABS Eosinophils 0 10^3/ul (0-0.6); ABS Lymphocytes 0.4 10^3/ul (1.0-4.8); ABS Monocytes 0.5 10^3/ul (0-0.8); ABS Neutrophils 4.4 10^3/ul (1.5-7.7); ABS Nucleated RBC 0 10^3/ul; Eosinophil % 0.9 % (0-6); Hematocrit 38 % (42-52); Hemoglobin 13.2 g/dl (14.0-18.0); Lymphocyte % 7.2 % (25-47); Mean Corpuscular HGB Conc 35 g/dl (31-36); Mean Corpuscular Hemoglobin 31 pg (27-31); Mean Corpuscular Volume 88 fL (80-94); Mean Platelet Volume 8.8 um3 (7.4-10.4); Nucleated Red Blood Cells % 0.1; Platelet Count 178 10^3/ul (150-450); Red Blood Count 4.33 10^6/ul (4.0-5.4); Red Cell Distribution Width 15 % (10.5-15); White Blood Count 5.3 10^3/ul (3.5-10.8)
--- NOTE | 2018-01-18 20:55 | RAD ---
Indication: Concern for sepsis. Sleepiness, headaches, confusion. Comparison: January 13, 2018 CT Technique: Upright AP 2002 hours Report: Mild prominence of the interstitial markings without change. No focal pulmonary lesion, compelling alveolar consolidation, pleural effusion, pneumothorax. The heart, pulmonary vasculature, and mediastinal contours are unremarkable. IMPRESSION: No evidence for pneumonia.
[2018-01-18 20:59] LABS: INR 1.34 (0.77-1.02)
[2018-01-18 21:11] LABS: EGFR Non-African American 97.3 (>60)
[2018-01-18 23:34] LABS: Urine Appearance Clear; Urine Blood 1+ (Negative); Urine Color Amber; Urine Ketones Negative (Negative); Urine Protein 1+(30 mg/dL) (Negative); Urine Specific Gravity 1.014 (1.010-1.030); Urine Urobilinogen Positive (Negative)
[2018-01-19] MEDS ORDERED: Acetaminophen TAB* 325 MG PO ONE (00:59)
[2018-01-19] MEDS ORDERED: NS 0.9% 1000 ML* 1,000 ML IV ONE (01:00)
[2018-01-19] MEDS ORDERED: Ondansetron INJ* 2 MG/ML VIAL IV PRN (01:00)
[2018-01-19] MEDS ORDERED: Dextrose 50% Syringe 50 ML* 25 GM/50 ML SYRINGE IV PUSH PRN (01:00)
[2018-01-19] MEDS ORDERED: NS 0.9% 1000 ML* 1,000 ML IV SCH (01:00)
[2018-01-19] MEDS ORDERED: Acetaminophen TAB* 325 MG ONE (01:01)
[2018-01-19] MEDS ORDERED: Piperacillin/Tazobac ADVAN(*) 3.375 GM in NS 0.9% 100 ML* 100 ML IVPB ONE (01:09)
[2018-01-19] MEDS ORDERED: Zosyn per Pharmacy* NOTE FOLLOW UP SCH (02:00)
[2018-01-19] MEDS: KCL 10 MEQ/50 ML IVPREMIX* 10 MEQ/50 ML BAG IV SCH ×4 (02:51→07:15)
--- NOTE | 2018-01-19 05:00 | HP ---
CC: Dr. Mccullough * HISTORY AND PHYSICAL: DATE OF ADMISSION: 01/19/18 PRIMARY CARE PROVIDER: Dr. Mccullough. ATTENDING PHYSICIAN WHILE IN THE HOSPITAL: Jason Darling MD * (report dictated by Rene Fleming NP). CHIEF COMPLAINT: 1. Headache. 2. Not feeling well. 3. Increased weakness. 4. Difficulty with urination. HISTORY OF PRESENTING ILLNESS: Mr. Ren is a 62-year-old male patient. He has a history of questionable TIA, history of depression, nephrolithiasis, he has a history of myotonic dystrophy type 2, he is diabetic and he also has a history of hyperlipidemia. The patient comes into our emergency department today stating that he on Monday was having left flank pain. He came into the ED, he was ultimately found to have an obstructing stone and a stent was placed. The patient was discharged home on Monday, later that night started developing a headache, he was feeling fatigued and run down. He noted that he had increased weakness in the lower extremities and it progressively got worse throughout the week. He had intermittent episodes of confusion like he thought it was 7 a.m. one night when it was actually 7 p.m. In addition to this, he was having at times difficulties with his remote control for his TV. He also noted that he had a fever yesterday as well, as high as 101 and he was concerned because he was getting more weak. He is having difficulty passing urine, he said it did not hurt, but he just had trouble initiating the stream. He denied having cough. He denied URI symptoms. He denied having flank tenderness or abdominal discomfort. He does admit to feeling nauseated, but no abdominal pain. No chest pain. No shortness of breath. No URI symptoms. He has not vomited. He denies any neck pain or neck stiffness or any tightness in the neck. The patient was concerned because of his symptoms, he decided to come into the ER today, he was evaluated and it was noted that his CRP was up. PAST MEDICAL HISTORY: 1. TIA. 2. Depression. 3. Nephrolithiasis. 4. Myotonic dystrophy type 2. 5. Diabetes. 6. Hyperlipidemia. PAST SURGICAL HISTORY: 1. The patient has had an inguinal hernia repair. 2. He has had cystoscopies with ureteral stenting x5. 3. He has had a vasectomy. HOME MEDICATIONS: Include: 1. Metformin 500 mg in the morning 1000 mg at bedtime. 2. Flomax 0.8 mg p.o. daily. 3. Doxepin 300 mg p.o. at bedtime. 4. Lipitor 10 mg p.o. at bedtime. 5. Aspirin 81 mg daily. ALLERGIES: His allergies to medications include CODEINE. FAMILY HISTORY: His mother is still alive at the age of 92. Father has a history of congestive heart failure, he is . SOCIAL HISTORY: He is smoking an e-cigarette daily, does not drink alcohol. Surrogate decision maker is his . REVIEW OF SYSTEMS: He had a fever of 101.8 down here, I just checked it. He denies having any rhinorrhea. No sore throat. No thyroid enlargement. Denies having any chest pain. No orthopnea. There is no nocturnal dyspnea and denies having any abdominal pain. Did admit to nausea, but no vomiting, no dysuria, no frequency, does have hesitancy. No loss of consciousness. No pruritus. No skin ulcerations. Review of 14 systems completed, all others negative. PHYSICAL EXAMINATION GENERAL: At this time, Mr. Ren is a 62-year-old male patient. He is sitting in the ED stretcher. He does not appear to be in any acute distress. He is awake. He is alert. He is well nourished and well developed. He is not tachypneic. VITAL SIGNS: Blood pressure 114/56; pulse 99; respirations were 23; O2 sat 97% ; temperature 100.1, I just checked, it was 101.8. HEENT: Head: Atraumatic, normocephalic. Eyes: EOMs are intact. Sclerae anicteric, not pale. NECK: Supple. Throat: Oral mucosa appears to be dry. No oropharyngeal erythema. LUNGS: Clear to auscultation bilaterally. There were no wheezes, rales, or rhonchi. HEART: Sounds S1, S2. Irregular rate and rhythm. No murmurs, rubs or gallops. ABDOMEN: Soft, it was flat, nontender. Bowel sounds were present. There was no CVA tenderness. EXTREMITIES: Pulses were 2+ throughout. He is moving all 4 extremities with 5/ 5 strength. NEUROLOGICAL: The patient is awake. He is alert. He is oriented x3. His speech is clear. His tongue is midline. There was no stiff neck. He had full range of motion. He had no gross focal deficits. SKIN: Grossly Intact. DIAGNOSTIC STUDIES/LAB DATA: His labs today did reveal WBC of 5.3, RBC of 4.33 , hemoglobin of 13.2, hematocrit of 38, and platelet count of 178,000. INR was 1.34, PTT was 55. His sodium was 140, potassium was 3.3, bicarb 25, BUN was 17 , creatinine 0.80, glucose 219. Lactic was 2.7, repeat was 3. His total bili was 2.1, AST 42, ALT 40, alk phos 91. Troponin 0.00. CRP is 218, albumin of 3.2. Urine did show 1+ protein, 1+ blood, positive urobilinogen, 1+ leukocyte esterase, 2+ WBC, 2+ RBC. He did have a CT of the abdomen and pelvis done. The overnight read was, impression: Left kidney double-J stent in the collecting system. Upper loop is within the renal pelvis. On the previous examination, there were stones in the renal pelvis, which were nonobstructing and an obstructing stone in the ureteropelvic junctions. These are no longer visualized. Two larger stones in the lower pole on the previous study are again demonstrated, the largest measures approximately 8 mm, resolved dilatation of the renal pelvis collecting system. The spleen is mildly enlarged. This previously measured 14.7. This now measures approximately 16.1. Differential diagnosis includes portal hypertension, enlargement of the portal vein. Please correlate to LFTs, cirrhotic changes and portal hypertension. He did have an impression for patchy consolidation in lingula and to a greater extent to the left lower lobe. Differential diagnosis includes atelectasis and/or pneumonia. Followup exam should be considered in 4 to 6 weeks' time. A chest x-ray obtained today showed no evidence of pneumonia. Old medical records reviewed. ASSESSMENT AND PLAN: Mr. Ren is a 62-old-male patient coming into the emergency department today with complaints of him not feeling well, having a headache, describes as a pressure around his head, it is not the worst headache of his life, associated temperature. He has been feeling weak. He has been having trouble passing urine. He states he also has been feeling nauseated. We were asked to evaluate for admission. He will be admitted under inpatient status for: 1. Systemic inflammatory response syndrome. Again, he is meeting systemic inflammatory response syndrome criteria. I do not have an obvious source of infection, but with his urine I am concerned with recent instrumentation as that certainly could be a source and also on his x-ray there is concern for possible pneumonia. We have pancultured him. I do think it is appropriate to put him on antibiotics, give him another liter of fluids, repeat the lactic to make sure it is trending down. He is not hypotensive now. He is awake, alert and oriented now. He is not having any neck stiffness or any meningitic signs. The headache may be he has had a history of migraines in the past, it may be a migraine going on here, so we will monitor him, though if he does not improve, we could consider LP, but I do not think he needs one emergently at this point because there are other sources for possible infection. We will go ahead and get him treated with broad- spectrum Zosyn, IV fluids and I will touch base with Urology in the morning to see if they have any further recommendations. I suspect the source could be again coming from his lungs or possibly his urine, but I will bladder scan him as well to make sure that he is emptying; if he is not, then I will place a Jama again and we will try to touch base with Urology. 2. Elevated LFTs and portal vein enlargement. I will get a portal vein ultrasound just to make sure there is not any thrombosis, but he is not having any symptoms of this. We will continue to follow and I will repeat the LFTs in the morning. 3. History of transient ischemic attack. Continue with secondary prevention. 4. Hypokalemia. We will replace this. 5. History of nephrolithiasis. Again, he has got a stent placed. We will touch base with Urology in the morning. 6. History of myotonic dystrophy with increased weakness. Again, this is probably being exacerbated by underlying infection. We will try to find the source and go ahead and treat with IV antibiotics and fluids. If he does not improve, we will consider neurology consult. 7. Diabetes. I will place him on a lispro sliding scale. 8. Hyperlipidemia. Continue his statin therapy. 9. DVT prophylaxis. I will order heparin subcu. 10. Code status. Full code. 11. Headache. Again, it is unclear the etiology of this. It could be migraine as he has had a history of this, particularly with the nausea. My plan is to the get a CT of the brain to make sure there is not any acute pathology and we will continue to follow. TIME SPENT: On this admission was approximately 60 minutes, greater than half of the time was spent [id number] with the patient obtaining my history and physical, other half of the time was spent going over the plan of care with the patient and implementing the plan of care. I discussed the plan of care with my attending, Dr. Darling, he is in agreement. RENE FLEMING, S[employer]HOUETTE ARTIST [id number]/CPS #: [id number] RUDY
[2018-01-19] MEDS: Heparin VIAL(*) 5000 UNITS/ML VIAL (FIVE THOUSAND) SUBCUT SCH ×3 (05:40→21:37)
--- NOTE | 2018-01-19 05:41 | ED ---
Zakia Irby Rebecca, scribed for Everett De La Rosa MD on 01/18/18 at 2346 . Progress - Progress Note Progress Note: Pt was signed out by Dr. Cash, pending dispo, awaiting CT Abd/Pel. - Results/Orders Results/Orders: CT Abd/Pel: As read by Radiologist: 1)LEFT KIDNEY: Double-J stent in the collecting system. Upper loop is within the renal pelvis. On the previous examination there were stones in the renal pelvis which were nonobstructing and an obstructing stone at the ureteral pelvic junction. These are NO longer visualized. 2 larger stones in the lower pole on the previous study are again demonstrated. The largest measures approximately 8 mm. Resolved dilatation of the renal pelvis/collection system. 2) The spleen is mildly enlarged. This previously measured approximately 14.7 cm. This now measures approximately 16.1 cm. The differential diagnosis includes portal hypertension. 3) Enlargement of the portal vein. Please correlate for LFTs, cirrhotic changes , and portal hypertension. 4) Patchy consolidation in the lingula and to a greater extent in the left lower lobe. The differential diagnosis includes atelectasis and/or pneumonia. Followup examination should be considered in 4 to 6 weeks' time, or until there is resolution of the current findings t exclude underlying pathology. ED physician reviewed this radiology report. Brain CT: As read by radiologist: This involutional changes. No hemorrhage. No mass. No obvious acute infarct. 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 Osseous structures are intact. ED physician reviewed this radiology report. Course/Dx - Course Course Of Treatment: Pt was signed out by Dr. Cash, pending dispo, awaiting CT Abd/Pel. CT Abd/Pel findings above. Pt was recently stented for kidney stones and he presented today with a MUKHERJEE. The original plan was to get a CT Abd/Pel but his lactic acid was elevated. After fluids, his lactic acid increased. The pt will be admitted with Dx of MUKHERJEE. - Diagnoses Provider Diagnoses: Headache Discharge - Sign-Out/Discharge Documenting (check all that apply): Discharge/Admit/Transfer - Admit - Discharge Plan Condition: Stable Disposition: ADMITTED TO [facility] documentation as recorded by the Zakia cheung Rebecca accurately reflects the service I personally performed and the decisions made by , Everett De La Rosa MD.
[2018-01-19] MEDS: ZOSYN 3.375 GM Q8H per EXTENDED INFUSION IVPB SCH ×6 (06:08→21:34)
[2018-01-19 06:31] LABS: ABS Basophils 0 10^3/ul (0-0.2); ABS Eosinophils 0.1 10^3/ul (0-0.6); ABS Lymphocytes 0.5 10^3/ul (1.0-4.8); ABS Monocytes 0.7 10^3/ul (0-0.8); ABS Neutrophils 3.4 10^3/ul (1.5-7.7); ABS Nucleated RBC 0 10^3/ul; Eosinophil % 1.4 % (0-6); Hematocrit 32 % (42-52); Hemoglobin 11.4 g/dl (14.0-18.0); Lymphocyte % 11.5 % (25-47); Mean Corpuscular HGB Conc 35 g/dl (31-36); Mean Corpuscular Hemoglobin 31 pg (27-31); Mean Corpuscular Volume 88 fL (80-94); Mean Platelet Volume 9.1 um3 (7.4-10.4); Nucleated Red Blood Cells % 0; Platelet Count 149 10^3/ul (150-450); Red Cell Distribution Width 15 % (10.5-15); White Blood Count 4.7 10^3/ul (3.5-10.8)
[2018-01-19 06:37] LABS: EGFR Non-African American 106.5 (>60)
[2018-01-19 06:46] LABS: INR 1.37 (0.77-1.02)
--- NOTE | 2018-01-19 07:56 | RAD ---
INDICATION: Right flank abdominal pain. COMPARISON: Comparison is made with a prior study from January 13, 2018. TECHNIQUE: A CT scan of the abdomen and pelvis was performed without intravenous or oral contrast. Contiguous axial sections were obtained from the lung bases through the symphysis pubis. Images were reconstructed in the coronal and sagittal planes. FINDINGS: There are small dependent infiltrates left greater than right suggestive of atelectasis. No pleural effusion is present. The liver and spleen are moderately enlarged and unchanged significantly. The liver is decreased in attenuation consistent with fatty infiltration. No focal abnormality is seen on this noncontrast study. There is enlargement of the portal vein raising the possibility of portal hypertension. The portal vein measures 2.0 cm in transverse dimension and is unchanged. The gallbladder is contracted. No calcified gallstones are seen. There is fatty infiltration of the pancreas which is otherwise unremarkable. The adrenal glands are normal in size. There are multiple bilateral renal cysts present. There is a ureteral stent catheter on the left side extending from the left renal pelvis into the urinary bladder. The previously noted calculus at the left ureteropelvic junction is not seen. There are several calculi in the lower pole of the left kidney measuring up to 6 mm in size. There is been interval resolution of the previous seen noted hydronephrosis. No urinary bladder wall thickening is present. There is a tiny bubble of air within the urinary bladder likely related to the patient's procedures. The abdominal aorta is normal in caliber. There is moderate to severe calcific plaque present. No aneurysm is seen. No significant enlarged retroperitoneal lymph nodes are seen. The stomach, small and large bowel appear nondistended. The appendix is within normal limits. There is mild descending and sigmoid diverticulosis without evidence for diverticulitis. There is a moderate to large amount retained stool present. No free intraperitoneal air or fluid is seen. No significant focal osseous abnormality is seen. IMPRESSION: 1. STATUS POST PLACEMENT OF A LEFT URETERAL STENT CATHETER AND INTERVAL RESOLUTION OF THE PREVIOUSLY NOTED LEFT HYDRONEPHROSIS. THE PRIOR LEFT URETEROPELVIC JUNCTION CALCULUS IS NOT SEEN ALTHOUGH THERE ARE SEVERAL CALCULI IN THE LOWER POLE OF THE LEFT KIDNEY. 2. HEPATOSPLENOMEGALY AND HEPATIC STEATOSIS. THERE IS ALSO ENLARGEMENT OF THE PORTAL VEIN RAISING THE POSSIBILITY OF PORTAL HYPERTENSION WHICH IS UNCHANGED. 3. SMALL DEPENDENT LOWER LOBE INFILTRATES MOST CONSISTENT WITH ATELECTASIS.
--- NOTE | 2018-01-19 08:09 | RAD ---
Indication: Headache. CT of the brain was performed without contrast. Ventricular structures are midline. No midline shift is noted. The extra-axial spaces are unremarkable. There is no evidence of intracranial mass or hemorrhage. No other high or low density lesions are identified. Mastoid air cells and paranasal sinuses are otherwise unremarkable. IMPRESSION: There is no evidence of intracranial mass or hemorrhage.
--- NOTE | 2018-01-19 09:16 | RAD ---
INDICATION: Abnormal liver function studies. Portal venous enlargement. COMPARISON: CT January 18, 2018 TECHNIQUE: Doppler interrogation of the hepatic and portal venous system was performed. Limited grayscale images of the right upper quadrant were acquired FINDINGS: There is hepatomegaly with hepatic steatosis as evident on the recent CT. The liver measures 21 cm. The IVC and hepatic veins are patent with normal hepatofugal flow. The waveforms are normal. The portal venous system is patent. There is normal hepatopedal flow. The portal vein is prominent with a diameter of 2.1 cm [address] to the CT. A normal portal vein typically does not exceed 1.5 cm. The splenic vein is patent. There is normal directional flow in the splenic vein. There is splenomegaly. Spleen measures 17 cm in diagonal dimension. IMPRESSION: THERE IS HEPATOSPLENOMEGALY. THERE IS HEPATIC STEATOSIS. THE PORTAL VEIN IS DILATED BUT THERE IS NORMAL DIRECTIONAL FLOW IN THE HEPATIC AND PORTAL VENOUS SYSTEMS.
[2018-01-19] MEDS: NS 0.9% 1000 ML* 1,000 ML IV SCH ×2 (09:19→17:29)
[2018-01-19] MEDS: Insulin LISPRO* 1 UNITS UNIT SUBCUT SCH ×3 (09:19→17:29)
[2018-01-19] MEDS: Nicotine PATCH 21 MG/24 HR* PATCH TRANSDERM SCH (09:20)
[2018-01-19] MEDS: Tamsulosin CAP* 0.4 MG PO SCH (09:20)
--- NOTE | 2018-01-19 10:34 | ED ---
Param Irby Stephanie, scribed for Cash Cash MD on 01/18/18 at 1953 . HPI Febrile Illness - HPI Summary HPI Summary: The pt is a 62 y/o M presenting to the ED with c/o fever (101.7 F at 18:00) that began earlier today. Symptoms include nausea, MUKHERJEE, confusion and decreased energy. The pt had recent stents put in for a kidney stone. - History of Current Complaint Chief Complaint: EDHeadache Time Seen by Provider: 01/18/18 19:43 Hx Obtained From: Patient, Family/[employer] Onset/Duration: Started Hours Ago, Still Present Timing: Constant Current Severity: Mild Pain Intensity: 3 Pain Scale Used: 0-10 Numeric Aggravating Factors: Nothing Alleviating Factors: Nothing Associated Signs and Symptoms: Nausea, Other: - decreased energy, MUKHERJEE, confusion - Allergy/Home Medications Allergies/Adverse Reactions: Allergies Allergy/AdvReac Type Severity Reaction Status Date / Time codeine Allergy Rash And Verified 01/02/18 21:51 Itching PMH/Surg Hx/FS Hx/Imm Hx Endocrine/Hematology History: Reports: Hx Diabetes - TYPE II- ON MEDS Cardiovascular History: Denies: Hx Congestive Heart Failure, Hx Hypertension, Other Cardiovascular Problems/Disorders Respiratory History: Denies: Other Respiratory Problems/Disorders GI History: Reports: Hx Diverticulosis, Hx Gastroesophageal Reflux Disease - VERY MILD Denies: Other GI Disorders History: Reports: Hx Kidney Stones - left stone, Hx Renal Disease - STONES Denies: Other Problems/Disorders Musculoskeletal History: Reports: Other Musculoskeletal History - myotonic dystrophy Denies: Hx Arthritis, Hx Gout Sensory History: Reports: Hx Cataracts - BILATERAL, Hx Contacts or Glasses - glasses, Hx Hearing Problem - mildly [place] Denies: Hx Hearing Aid Opthamlomology History: Reports: Hx Cataracts - BILATERAL, Hx Contacts or Glasses - glasses Neurological History: Reports: Hx Migraine - HX OF, NONE RECENT, Other Neuro Impairments/Disorders - MYOTONIC DYSTROPHY Denies: Hx Seizures Psychiatric History: Reports: Hx Anxiety - WELL CONTROLLED- ON MEDICATION FOR, Hx Depression - WELL CONTROLLED- ON MEDICATION FOR, Hx Suicide Attempt Denies: Hx Substance Abuse - Cancer History Hx Chemotherapy: No - Surgical History Surgery Procedure, Year, and Place: Kidney stones 2010 [facility] [place], [place]. HERNIA REPAIR 1999. SINUS SURGERY MANY YRS AGO. VASECTOMY . 12/2015-RIGHT KIDNEY STONE SURGERY AND STENT INSERTION. 01/29/16, LEFT URETERAL STENT, [facility] Hx Anesthesia Reactions: No Infectious Disease History: No Infectious Disease History: Denies: Traveled Outside the [place] in Last 30 Days - Family History Known Family History: Negative: Diabetes - Social History Occupation: Retired Lives: With Family Alcohol Use: Rare Alcohol Amount: 1 Q3 WEEKS Substance Use Type: Reports: None Smoking Status (MU): Former Smoker Type: eCigarettes Amount Used/How Often: USES E-CIG//1 PPD X 40 YEARS PRIOR TO E-CIGARETTES Length of Time of Smoking/Using Tobacco: 40+ YRS Have You Smoked in the Last Year: No Review of Systems Positive: Fever, Other - decreased energy Positive: Nausea Neurological: Other - confusion Positive: Headache All Other Systems Reviewed And Are Negative: Yes Physical Exam - Summary Physical Exam Summary: Appearance: The patient is well-nourished in no acute distress and in no acute pain. Skin: The skin is diaphoretic and skin color reflects adequate perfusion. HEENT: The head is normocephalic and atraumatic. The pupils are equal and reactive. The conjunctivae are clear and without drainage. Nares are patent and without drainage. Mouth reveals moist mucous membranes and the throat is without erythema and exudate. The external ears are intact. The ear canals are patent and without drainage. The tympanic membranes are intact. Neck: the neck is supple with full range of motion and non-tender. There are no carotid bruits. There is no neck vein distension. Respiratory: Chest is non-tender. Lungs are clear to auscultation and breath sounds are symmetrical and equal. Cardiovascular: Heart is tachycardic. There is no murmur or rub auscultated. There is no peripheral edema and pulses are symmetrical and equal. Abdomen: The abdomen is soft and non-tender. There are normal bowel sounds heard in all four quadrants and there is no organomegaly palpated. Musculoskeletal: There is no back tenderness noted. Extremities are non-tender with full range of motion. There is good capillary refill. There is no peripheral edema or calf tenderness elicited. Neurological: Patient is alert and oriented to person, place and time. The patient has symmetrical motor strength in all four extremities. Cranial nerves are grossly intact. Deep tendon reflexes are symmetrical and equal in all four extremities. Psychiatric: The patient has an appropriate affect and does not exhibit any anxiety or depression. Triage Information Reviewed: Yes Vital Signs On Initial Exam: Initial Vitals Temp Pulse Resp BP Pulse Ox 100.1 F 100 16 109/58 99 01/18/18 19:32 01/18/18 19:32 01/18/18 19:32 01/18/18 19:32 01/18/18 19:32 Vital Signs Reviewed: Yes Diagnostics - Vital Signs Vital Signs Temp Pulse Resp BP Pulse Ox 01/18/18 19:32 100.1 F 100 16 109/58 99 - Laboratory Lab Results: Lab Results 01/18/18 01/18/18 01/18/18 Range/Units 20:41 20:41 20:41 WBC 5.3 (3.5-10.8) 10^3/ul RBC 4.33 (4.0-5.4) 10^6/ul Hgb 13.2 L (14.0-18.0) g/dl Hct 38 L (42-52) % MCV 88 (80-94) fL MCH 31 (27-31) pg MCHC 35 (31-36) g/dl RDW 15 (10.5-15) % Plt Count 178 (150-450) 10^3/ul MPV 8.8 (7.4-10.4) um3 Neut % (Auto) 82.7 (38-83) % Lymph % (Auto) 7.2 L (25-47) % Laurel % (Auto) 8.9 H (0-7) % Eos % (Auto) 0.9 (0-6) % Baso % (Auto) 0.3 (0-2) % Absolute Neuts (auto) 4.4 (1.5-7.7) 10^3/ul Absolute Lymphs (auto) 0.4 L (1.0-4.8) 10^3/ul Absolute Monos (auto) 0.5 (0-0.8) 10^3/ul Absolute Eos (auto) 0 (0-0.6) 10^3/ul Absolute Basos (auto) 0 (0-0.2) 10^3/ul Absolute Nucleated RBC 0 10^3/ul Nucleated RBC % 0.1 INR (Anticoag Therapy) 1.34 H (0.77-1.02) APTT 55.0 H (26.0-36.3) seconds Sodium 140 (139-145) mmol/L Potassium 3.3 L (3.5-5.0) mmol/L Chloride 103 (101-111) mmol/L Carbon Dioxide 25 (22-32) mmol/L Anion Gap 12 H (2-11) mmol/L BUN 17 (6-24) mg/dL Creatinine 0.80 (0.67-1.17) mg/dL Est GFR ( Amer) 125.2 (>60) Est GFR (Non-Af Amer) 97.3 (>60) BUN/Creatinine Ratio 21.3 H (8-20) Glucose 219 H (70-100) mg/dL Lactic Acid (0.5-2.0) mmol/L Calcium 9.0 (8.6-10.3) mg/dL Total Bilirubin 2.10 H (0.2-1.0) mg/dL AST 42 H (13-39) U/L ALT 40 (7-52) U/L Alkaline Phosphatase 91 (34-104) U/L Troponin I 0.00 (<0.04) ng/mL C-Reactive Protein 218.33 H (< 5.00) mg/L Total Protein 6.3 L (6.4-8.9) g/dL Albumin 3.2 (3.2-5.2) g/dL Globulin 3.1 (2-4) g/dL Albumin/Globulin Ratio 1.0 (1-3) Urine Color Urine Appearance Urine pH (5-9) Ur Specific [place] (1.010-1.030) Urine Protein (Negative) Urine Ketones (Negative) Urine Blood (Negative) Urine Nitrate (Negative) Urine Bilirubin (Negative) Urine Urobilinogen (Negative) Ur Leukocyte Esterase (Negative) Urine WBC (Auto) (Absent) Urine RBC (Auto) (Absent) Urine Bacteria (Absent) Urine Glucose (Negative) 01/18/18 01/18/18 01/18/18 Range/Units 20:41 23:19 23:45 WBC (3.5-10.8) 10^3/ul RBC (4.0-5.4) 10^6/ul Hgb (14.0-18.0) g/dl Hct (42-52) % MCV (80-94) fL MCH (27-31) pg MCHC (31-36) g/dl RDW (10.5-15) % Plt Count (150-450) 10^3/ul MPV (7.4-10.4) um3 Neut % (Auto) (38-83) % Lymph % (Auto) (25-47) % Laurel % (Auto) (0-7) % Eos % (Auto) (0-6) % Baso % (Auto) (0-2) % Absolute Neuts (auto) (1.5-7.7) 10^3/ul Absolute Lymphs (auto) (1.0-4.8) 10^3/ul Absolute Monos (auto) (0-0.8) 10^3/ul Absolute Eos (auto) (0-0.6) 10^3/ul Absolute Basos (auto) (0-0.2) 10^3/ul Absolute Nucleated RBC 10^3/ul Nucleated RBC % INR (Anticoag Therapy) (0.77-1.02) APTT (26.0-36.3) seconds Sodium (139-145) mmol/L Potassium (3.5-5.0) mmol/L Chloride (101-111) mmol/L Carbon Dioxide (22-32) mmol/L Anion Gap (2-11) mmol/L BUN (6-24) mg/dL Creatinine (0.67-1.17) mg/dL Est GFR ( Amer) (>60) Est GFR (Non-Af Amer) (>60) BUN/Creatinine Ratio (8-20) Glucose (70-100) mg/dL Lactic Acid 2.7 H* 3.0 H* (0.5-2.0) mmol/L Calcium (8.6-10.3) mg/dL Total Bilirubin (0.2-1.0) mg/dL AST (13-39) U/L ALT (7-52) U/L Alkaline Phosphatase (34-104) U/L Troponin I (<0.04) ng/mL C-Reactive Protein (< 5.00) mg/L Total Protein (6.4-8.9) g/dL Albumin (3.2-5.2) g/dL Globulin (2-4) g/dL Albumin/Globulin Ratio (1-3) Urine Color Karina Urine Appearance Clear Urine pH 5.0 (5-9) Ur Specific [place] 1.014 (1.010-1.030) Urine Protein 1+(30 mg/dl) A (Negative) Urine Ketones Negative (Negative) Urine Blood 1+ A (Negative) Urine Nitrate Negative (Negative) Urine Bilirubin Negative (Negative) Urine Urobilinogen Positive A (Negative) Ur Leukocyte Esterase 1+ A (Negative) Urine WBC (Auto) 2+(11-20/hpf) A (Absent) Urine RBC (Auto) 2+(6-10/hpf) A (Absent) Urine Bacteria Absent (Absent) Urine Glucose Negative (Negative) Result Diagrams: 01/19/18 05:38 01/19/18 05:38 Lab Statement: Any lab studies that have been ordered have been reviewed, and results considered in the medical decision making process. - Radiology CXR Xray Interpretation: No Acute Changes Radiology Interpretation Completed By: Radiologist - No evidence for pneumonia. ED physician has reviewed this report. Re-Evaluation - Re-Evaluation First Eval Re-Evaluation Time: 21:50 Change: Unchanged - ED physician discussed the need of a CT scan. Course/Dx - Course Course Of Treatment: Mr. Ren was in the hospital about 5 days ago with an obstructing kidney stone that was stented. He is concerned that he has not felt well since his D/C. He has had intermittent fevers (as high as 101.7), malaise and MUKHERJEE. His U/A was apparently not obtained during his recent stay. Labs have been obtained today but I am still waiting for the U/A; he won't allow an catherization as he underwent one on 01/02 in the ED. He is borderline septic. His temp is up a bit here but doesn't qualify as a fever. He is tachycardic. His WBC's are WNL but his CRP is above 200. His Lactate is elevated but below 4. I am treating him as sepsis with fluids and antibiotics. I spoke with Dr. Elmore who requests a CT to make sure his stent is working as we have no Urology coverage tonight. He does not look toxic. - Diagnoses Provider Diagnoses: Headache, Sepsis - Provider Notifications Discussed Care Of Patient With: Jason Darling Time Discussed With Above Provider: 21:49 Instructed by Provider To: Other - Dr. Darling recommends the pt gets a CT scan. - Critical Care Time Critical Care Time: 30-74 min Discharge - Sign-Out/Discharge Documenting (check all that apply): Sign-Out Patient Signing out patient TO: Everett De La Rosa - Pending CT abdomen/pelvis result. - Discharge Plan Condition: Stable Disposition: ADMITTED TO [facility] - Billing Disposition and Condition Condition: STABLE Disposition: [facility] [place] [place] The documentation as recorded by the Param cheung Stephanie accurately reflects the service I personally performed and the decisions made by me, Cash Cash MD.
[2018-01-19] MEDS: Acetaminophen TAB* 325 MG PO PRN ×2 (12:06→23:07)
--- NOTE | 2018-01-19 14:28 | PN ---
Subjective Date of Service: 01/19/18 Interval History: HOSPITALIST PROGRESS NOTE Patient seen and examined at bedside. He felt well this AM, but not so much this afternoon. Feels he's "burning hot" although multiple temperature checks did not reveal fever. Feels weak, but denies pain, N/V/D. States he has not started working outside yet and does not hike. Denies finding a tick or a "bug bite". Family History: Unchanged from Admission Social History: Unchanged from Admission Past Medical History: Unchanged from Admission Objective Active Medications: Acetaminophen (Tylenol Tab*) 650 mg PO Q4H PRN PRN Reason: FEVER/PAIN Last Admin: 01/19/18 12:06 Dose: 650 mg Aspirin (Aspirin 81 Mg Chew Tab*) 81 mg PO QPM [facility] Atorvastatin Calcium (Lipitor*) 10 mg PO BEDTIME [facility] Dextrose (D50w Syringe 50 Ml*) 12.5 gm IV PUSH .FOR FS < 60 - SS PRN PRN Reason: FS < 60 Doxepin HCl (Doxepin (Nf)) 300 mg PO BEDTIME [facility] PRN Reason: Protocol Heparin Sodium (Porcine) (Heparin Vial(*)) 5,000 units SUBCUT Q8HR [facility] Last Admin: 01/19/18 05:40 Dose: 5,000 units Piperacillin Sod/Tazobactam (Sod 3.375 gm/ Sodium Chloride) 100 mls @ 25 mls/ hr IVPB Q8H [facility] Last Admin: 01/19/18 06:08 Dose: 25 mls/hr Sodium Chloride (Ns 0.9% 1000 Ml*) 1,000 mls @ 125 mls/hr IV PER RATE [facility] Last Admin: 01/19/18 09:19 Dose: 125 mls/hr Insulin Human Lispro (Humalog*) 0 units SUBCUT AC [facility] PRN Reason: Protocol Last Admin: 01/19/18 12:03 Dose: 2 units Nicotine (Nicotine Patch 21 Mg/24 Hr*) 1 patch TRANSDERM DAILY [facility] Last Admin: 01/19/18 09:20 Dose: 1 patch Ondansetron HCl (Zofran Inj*) 4 mg IV Q6H PRN PRN Reason: NAUSEA Pharmacy Consult (Zosyn Per Pharmacy*) 1 note FOLLOW UP .ZOSYN PER PHARMACY [facility] Pharmacy Profile Note (Nicotine Patch Removal Note*) 1 note FOLLOW UP 2100 [facility] Tamsulosin HCl (Flomax Cap*) 0.8 mg PO DAILY [facility] Last Admin: 01/19/18 09:20 Dose: 0.8 mg Vital Signs - 8 hr 01/19/18 01/19/18 07:38 07:48 Temperature 98.9 F Pulse Rate 83 Respiratory 18 16 Rate Blood Pressure 148/74 (mmHg) O2 Sat by Pulse 97 98 Oximetry Oxygen Devices in Use Now: None Appearance: Pleasant gentleman lying in bed in NAD. Eyes: No Scleral Icterus Ears/Nose/Mouth/Throat: Mucous Membranes Moist Neck: Trachea Midline Respiratory: Symmetrical Chest Expansion and Respiratory Effort, Clear to Auscultation Cardiovascular: NL Sounds; No Murmurs; No JVD, RRR Abdominal: NL Sounds; No Tenderness; No Distention Extremities: No Edema Skin: No Rash or Ulcers Neurological: Alert and Oriented x 3, NL Muscle Strength and Tone Result Diagrams: 01/19/18 05:38 01/19/18 05:38 Assess/Plan/Problems-Billing Assessment: Mr Ren is a 62yo M with PMH of TIA, depression, myotonic distrophy type 2, DM , HLD, nephrolithiasis s/p recent ureteral stentin, who presented to ED with c/ o fever and weakness, found to have sepsis of unclear source. - Patient Problems (1) Sepsis Comment: - Presented with fever and tachycardia. - Source is unclear - can be urinary due to recent instrumentation, but blood cultures are growing Gram positive cocci (not MRSA) - continue Zosyn. - CT abd/pelvis showed left ureteral stent with resolution of hydronephrosis and hepatosplenomegaly. - Unlikely he has Lyme, but will check serology to r/o. - Continue supportive care with IVF and symptomatic treatment. (2) Hepatosplenomegaly Comment: - Etiology unclear at this time - could be related with current infection. - LFTs are minimally elevated likely due to hepatic steatosis and statin. - Portal vein US showed dilated portal vein, but normal directional flow. (3) Diabetes Comment: - Continue Lispro SS. (4) Myotonic dystrophy, type 2 Comment: - Weakness probably exacerbated now in the setting of infection. (5) Lactic acidosis Comment: - Likely associated with Metformin and infection. - Resolved. (6) DVT prophylaxis Comment: - SQ heparin. (7) Full code status Status and Disposition: Inpatient for management of sepsis of unclear source at this time.
[2018-01-19] MEDS: Aspirin 81 mg CHEW TAB* 81 MG TAB.CHEW PO SCH (17:29)
--- NOTE | 2018-01-19 19:13 | RAD ---
INDICATION: Pelvic pain COMPARISON: Similar KUB dated January 13, 2018 TECHNIQUE: 2 views the abdomen were obtained. FINDINGS: The left ureteral stent is unchanged in position from the prior radiograph. The calcifications are seen overlying the left collecting system ranging in size from 3 7 mm in greatest dimension. Gas and stool is seen throughout the length of the colon but there is no radiographically apparent pathologic dilatation. IMPRESSION: STABLE APPEARANCE OF ANATOMICALLY ALIGNED LEFT URETERAL STENT WITH MULTIPLE RENAL CALCULI OVERLYING THE LEFT RENAL COLLECTING SYSTEM.
[2018-01-19] MEDS: Atorvastatin* 10 MG TAB PO SCH (20:28)
[2018-01-19] MEDS: Nicotine Patch Removal NOTE FOLLOW UP SCH (20:29)
[2018-01-19] MEDS ORDERED: Doxepin (NF) 25 MG CAP PO SCH (21:00)
[2018-01-20] MEDS: NS 0.9% 1000 ML* 1,000 ML IV SCH (02:16)
[2018-01-20] MEDS: ZOSYN 3.375 GM Q8H per EXTENDED INFUSION IVPB SCH ×6 (06:00→21:41)
[2018-01-20] MEDS: Heparin VIAL(*) 5000 UNITS/ML VIAL (FIVE THOUSAND) SUBCUT SCH ×3 (06:02→21:42)
[2018-01-20 06:50] LABS: ABS Basophils 0 10^3/ul (0-0.2); ABS Eosinophils 0.1 10^3/ul (0-0.6); ABS Lymphocytes 0.6 10^3/ul (1.0-4.8); ABS Monocytes 0.6 10^3/ul (0-0.8); ABS Nucleated RBC 0 10^3/ul; Eosinophil % 2.1 % (0-6); Hematocrit 32 % (42-52); Hemoglobin 11.2 g/dl (14.0-18.0); Lymphocyte % 14.8 % (25-47); Mean Corpuscular HGB Conc 35 g/dl (31-36); Mean Corpuscular Hemoglobin 31 pg (27-31); Mean Corpuscular Volume 87 fL (80-94); Mean Platelet Volume 8.9 um3 (7.4-10.4); Nucleated Red Blood Cells % 0; Platelet Count 178 10^3/ul (150-450); Red Blood Count 3.66 10^6/ul (4.0-5.4); Red Cell Distribution Width 15 % (10.5-15); White Blood Count 4.3 10^3/ul (3.5-10.8)
[2018-01-20 07:07] LABS: EGFR Non-African American 130.6 (>60)
[2018-01-20] MEDS: Tamsulosin CAP* 0.4 MG PO SCH (08:27)
[2018-01-20] MEDS: Nicotine PATCH 21 MG/24 HR* PATCH TRANSDERM SCH (08:28)
[2018-01-20] MEDS: Insulin LISPRO* 1 UNITS UNIT SUBCUT SCH ×3 (08:29→17:04)
--- NOTE | 2018-01-20 09:09 | PN ---
Subjective Date of Service: 01/20/18 Interval History: Had "moment of clarity" when he felt great yesterday evening before his fever returned and he felt weak again No urinary symptoms except frequency while receiving IV fluids Family History: Unchanged from Admission Social History: Unchanged from Admission Past Medical History: Unchanged from Admission Objective Active Medications: Acetaminophen (Tylenol Tab*) 650 mg PO Q4H PRN PRN Reason: FEVER/PAIN Last Admin: 01/19/18 23:07 Dose: 650 mg Aspirin (Aspirin 81 Mg Chew Tab*) 81 mg PO QPM [facility] Last Admin: 01/19/18 17:29 Dose: 81 mg Atorvastatin Calcium (Lipitor*) 10 mg PO BEDTIME [facility] Last Admin: 01/19/18 20:28 Dose: 10 mg Dextrose (D50w Syringe 50 Ml*) 12.5 gm IV PUSH .FOR FS < 60 - SS PRN PRN Reason: FS < 60 Doxepin HCl (Doxepin (Nf)) 300 mg PO BEDTIME [facility] PRN Reason: Protocol Last Admin: 01/19/18 21:01 Dose: Not Given Heparin Sodium (Porcine) (Heparin Vial(*)) 5,000 units SUBCUT Q8HR [facility] Last Admin: 01/20/18 06:02 Dose: 5,000 units Piperacillin Sod/Tazobactam (Sod 3.375 gm/ Sodium Chloride) 100 mls @ 25 mls/ hr IVPB Q8H [facility] Last Admin: 01/20/18 06:00 Dose: 25 mls/hr Sodium Chloride (Ns 0.9% 1000 Ml*) 1,000 mls @ 125 mls/hr IV PER RATE [facility] Last Admin: 01/20/18 02:16 Dose: 125 mls/hr Insulin Human Lispro (Humalog*) 0 units SUBCUT AC [facility] PRN Reason: Protocol Last Admin: 01/20/18 08:29 Dose: 1 units Nicotine (Nicotine Patch 21 Mg/24 Hr*) 1 patch TRANSDERM DAILY [facility] Last Admin: 01/20/18 08:28 Dose: 1 patch Ondansetron HCl (Zofran Inj*) 4 mg IV Q6H PRN PRN Reason: NAUSEA Pharmacy Consult (Zosyn Per Pharmacy*) 1 note FOLLOW UP .ZOSYN PER PHARMACY [facility] Pharmacy Profile Note (Nicotine Patch Removal Note*) 1 note FOLLOW UP 2100 [facility] Last Admin: 01/19/18 20:29 Dose: Not Given Tamsulosin HCl (Flomax Cap*) 0.8 mg PO DAILY [facility] Last Admin: 01/20/18 08:27 Dose: 0.8 mg Vital Signs - 8 hr 01/20/18 01/20/18 01/20/18 03:01 07:33 07:46 Temperature 98.9 F 98.2 F Pulse Rate 79 76 Respiratory 18 19 Rate Blood Pressure 130/73 131/63 (mmHg) O2 Sat by Pulse 97 97 96 Oximetry Oxygen Devices in Use Now: None Appearance: sitting on edge of bed eating cereal, interactive, NAD Eyes: No Scleral Icterus, PERRLA Ears/Nose/Mouth/Throat: NL Teeth, Lips, Gums, Clear Oropharnyx Neck: NL Appearance and Movements; NL JVP, Trachea Midline Respiratory: Symmetrical Chest Expansion and Respiratory Effort, Clear to Auscultation Cardiovascular: NL Sounds; No Murmurs; No JVD, RRR Abdominal: NL Sounds; No Tenderness; No Distention Lymphatic: No Cervical Adenopathy Extremities: No Edema Skin: No Rash or Ulcers Neurological: Alert and Oriented x 3 Result Diagrams: 01/20/18 06:42 01/20/18 06:42 Additional Lab and Data: Lab Results 01/18/18 01/18/18 01/18/18 Range/Units 20:41 20:41 20:41 WBC 5.3 (3.5-10.8) 10^3/ul RBC 4.33 (4.0-5.4) 10^6/ul Hgb 13.2 L (14.0-18.0) g/dl Hct 38 L (42-52) % MCV 88 (80-94) fL MCH 31 (27-31) pg MCHC 35 (31-36) g/dl RDW 15 (10.5-15) % Plt Count 178 (150-450) 10^3/ul MPV 8.8 (7.4-10.4) um3 Neut % (Auto) 82.7 (38-83) % Lymph % (Auto) 7.2 L (25-47) % [place] % (Auto) 8.9 H (0-7) % Eos % (Auto) 0.9 (0-6) % Baso % (Auto) 0.3 (0-2) % Absolute Neuts (auto) 4.4 (1.5-7.7) 10^3/ul Absolute Lymphs (auto) 0.4 L (1.0-4.8) 10^3/ul Absolute Monos (auto) 0.5 (0-0.8) 10^3/ul Absolute Eos (auto) 0 (0-0.6) 10^3/ul Absolute Basos (auto) 0 (0-0.2) 10^3/ul Absolute Nucleated RBC 0 10^3/ul Nucleated RBC % 0.1 INR (Anticoag Therapy) 1.34 H (0.77-1.02) APTT 55.0 H (26.0-36.3) seconds Sodium 140 (139-145) mmol/L Potassium 3.3 L (3.5-5.0) mmol/L Chloride 103 (101-111) mmol/L Carbon Dioxide 25 (22-32) mmol/L Anion Gap 12 H (2-11) mmol/L BUN 17 (6-24) mg/dL Creatinine 0.80 (0.67-1.17) mg/dL Est GFR ( Amer) 125.2 (>60) Est GFR (Non-Af Amer) 97.3 (>60) BUN/Creatinine Ratio 21.3 H (8-20) Glucose 219 H (70-100) mg/dL Lactic Acid (0.5-2.0) mmol/L Calcium 9.0 (8.6-10.3) mg/dL Total Bilirubin 2.10 H (0.2-1.0) mg/dL AST 42 H (13-39) U/L ALT 40 (7-52) U/L Alkaline Phosphatase 91 (34-104) U/L Troponin I 0.00 (<0.04) ng/mL C-Reactive Protein 218.33 H (< 5.00) mg/L Total Protein 6.3 L (6.4-8.9) g/dL Albumin 3.2 (3.2-5.2) g/dL Globulin 3.1 (2-4) g/dL Albumin/Globulin Ratio 1.0 (1-3) Urine Color Urine Appearance Urine pH (5-9) Ur Specific [place] (1.010-1.030) Urine Protein (Negative) Urine Ketones (Negative) Urine Blood (Negative) Urine Nitrate (Negative) Urine Bilirubin (Negative) Urine Urobilinogen (Negative) Ur Leukocyte Esterase (Negative) Urine WBC (Auto) (Absent) Urine RBC (Auto) (Absent) Urine Bacteria (Absent) Urine Glucose (Negative) 01/18/18 01/18/18 01/18/18 Range/Units 20:41 23:19 23:45 WBC (3.5-10.8) 10^3/ul RBC (4.0-5.4) 10^6/ul Hgb (14.0-18.0) g/dl Hct (42-52) % MCV (80-94) fL MCH (27-31) pg MCHC (31-36) g/dl RDW (10.5-15) % Plt Count (150-450) 10^3/ul MPV (7.4-10.4) um3 Neut % (Auto) (38-83) % Lymph % (Auto) (25-47) % [place] % (Auto) (0-7) % Eos % (Auto) (0-6) % Baso % (Auto) (0-2) % Absolute Neuts (auto) (1.5-7.7) 10^3/ul Absolute Lymphs (auto) (1.0-4.8) 10^3/ul Absolute Monos (auto) (0-0.8) 10^3/ul Absolute Eos (auto) (0-0.6) 10^3/ul Absolute Basos (auto) (0-0.2) 10^3/ul Absolute Nucleated RBC 10^3/ul Nucleated RBC % INR (Anticoag Therapy) (0.77-1.02) APTT (26.0-36.3) seconds Sodium (139-145) mmol/L Potassium (3.5-5.0) mmol/L Chloride (101-111) mmol/L Carbon Dioxide (22-32) mmol/L Anion Gap (2-11) mmol/L BUN (6-24) mg/dL Creatinine (0.67-1.17) mg/dL Est GFR ( Amer) (>60) Est GFR (Non-Af Amer) (>60) BUN/Creatinine Ratio (8-20) Glucose (70-100) mg/dL Lactic Acid 2.7 H* 3.0 H* (0.5-2.0) mmol/L Calcium (8.6-10.3) mg/dL Total Bilirubin (0.2-1.0) mg/dL AST (13-39) U/L ALT (7-52) U/L Alkaline Phosphatase (34-104) U/L Troponin I (<0.04) ng/mL C-Reactive Protein (< 5.00) mg/L Total Protein (6.4-8.9) g/dL Albumin (3.2-5.2) g/dL Globulin (2-4) g/dL Albumin/Globulin Ratio (1-3) Urine Color [place] Urine Appearance Clear Urine pH 5.0 (5-9) Ur Specific [place] 1.014 (1.010-1.030) Urine Protein 1+(30 mg/dl) A (Negative) Urine Ketones Negative (Negative) Urine Blood 1+ A (Negative) Urine Nitrate Negative (Negative) Urine Bilirubin Negative (Negative) Urine Urobilinogen Positive A (Negative) Ur Leukocyte Esterase 1+ A (Negative) Urine WBC (Auto) 2+(11-20/hpf) A (Absent) Urine RBC (Auto) 2+(6-10/hpf) A (Absent) Urine Bacteria Absent (Absent) Urine Glucose Negative (Negative) Microbiology and Other Data: Microbiology 01/19/18 01:23 Influenza Types A,B Antigen (AASHISH) - Final Nasopharyngeal Specimen received for Influenza A/B Molecular testing Assess/Plan/Problems-Billing Assessment: Mr Ren is a 62yo M with PMH of TIA, depression, myotonic distrophy type 2, DM , HLD, nephrolithiasis s/p recent ureteral stenting, who presented to ED with c/ o fever and weakness, found to have sepsis (HR elevated and +fever) - Patient Problems (1) Sepsis Comment: - Presented with fever and tachycardia. 3 out of 4 Blood cx positive GPC - speciation pending recent instrumentation -continue Zosyn until speciation then narrow - CT abd/pelvis showed left ureteral stent with resolution of hydronephrosis and hepatosplenomegaly. - Unlikely he has Lyme, but will check serology to r/o. d/c fluids 01/20 (2) Diabetes Comment: resart metformin - Continue Lispro SS. (3) Hepatosplenomegaly Comment: - Etiology unclear at this time - could be related with current infection. - LFTs are minimally elevated likely due to hepatic steatosis and statin. - Portal vein US showed dilated portal vein, but normal directional flow. (4) Myotonic dystrophy, type 2 Comment: - Weakness was probably exacerbated now in the setting of infection now improving OOB with aids today (5) DVT prophylaxis Comment: - SQ heparin. Status and Disposition: Inpatient for management of sepsis of unclear source at this time.
[2018-01-20] MEDS: metFORMIN* 500 MG TAB PO SCH (17:04)
[2018-01-20] MEDS: Aspirin 81 mg CHEW TAB* 81 MG TAB.CHEW PO SCH (17:05)
[2018-01-20] MEDS: Atorvastatin* 10 MG TAB PO SCH (20:41)
[2018-01-20] MEDS: Nicotine Patch Removal NOTE FOLLOW UP SCH (20:43)
[2018-01-20] MEDS ORDERED: DOXEPIN 100 MG PO SCH (21:00)
[2018-01-21] MEDS: ZOSYN 3.375 GM Q8H per EXTENDED INFUSION IVPB SCH ×4 (05:53→14:37)
[2018-01-21] MEDS: Heparin VIAL(*) 5000 UNITS/ML VIAL (FIVE THOUSAND) SUBCUT SCH ×2 (05:55→12:48)
[2018-01-21] MEDS: Insulin LISPRO* 1 UNITS UNIT SUBCUT SCH ×3 (08:17→17:29)
[2018-01-21] MEDS ORDERED: metFORMIN* 500 MG TAB PO SCH (08:30)
[2018-01-21] MEDS: Tamsulosin CAP* 0.4 MG PO SCH (09:47)
[2018-01-21] MEDS: Nicotine PATCH 21 MG/24 HR* PATCH TRANSDERM SCH (09:49)
[2018-01-21 16:18] VITALS: BP 116/68
[2018-01-21] MEDS: Aspirin 81 mg CHEW TAB* 81 MG TAB.CHEW PO SCH (17:30)
[2018-01-21] MEDS: metFORMIN* 500 MG TAB PO SCH (17:30)
--- NOTE | 2018-01-21 21:52 | DS ---
CC: Dr. Mccullough * DISCHARGE SUMMARY: DATE OF ADMISSION: 01/19/18 DATE OF DISCHARGE: 01/21/18 PRIMARY CARE PROVIDER: Dr. Mccullough. PRIMARY DIAGNOSIS: Sepsis secondary to enterococcus bacteremia. SECONDARY DIAGNOSES: Include: 1. History of depression. 2. Diabetes. 3. Hyperlipidemia. 4. Tobacco abuse. MEDICATIONS ON DISCHARGE: Include: 1. Metformin 500 mg in the morning and 1000 mg in the evening. 2. Flomax 0.8 mg daily. 3. Doxepin 300 mg at bedtime. 4. Lipitor 10 mg at bedtime. 5. Aspirin 81 mg in the evening. 6. Augmentin 875 mg twice daily for 8 additional days. PERTINENT LABORATORY DATA: White blood cell count is 5.3 on presentation. Lactic acid peaked at 3.0 on day of presentation. CRP 218, decreased to 143 on 01/20/18. HISTORY OF PRESENT ILLNESS AND HOSPITAL COURSE: This is a 62-year-old man with past medical history as outlined in the history of present illness, on the day of admission presented to the hospital with left flank pain, the week prior found to have obstructing nephrolithiasis, status post stent placement, discharged later the same day on Monday, went home, became progressively fatigued and weak, re- presented to the hospital with aforementioned symptoms including not feeling well and weakness and difficulty with urination. His urinalysis was notable for protein, blood, leuk esterase, white blood cells, but absent for bacteria; however, and his urine culture was ultimately negative ; however, 3/4 blood culture bottles ultimately grew Enterococcus faecalis sensitive to all antibiotics tested except for erythromycin, quinupristin and tetracycline. The patient was maintained on Zosyn while in the hospital with improving symptoms and abatement of his fevers with last fever on 01/19/18 in the evening. On the day of discharge, the patient felt well. He had been almost 48 hours fever free and his blood cultures had speciated with identification of sensitivities to antibiotics. He will finish his Zosyn extended infusion this evening around 8 p.m. and if no additional fevers develop , will be discharged with 8 additional days of Augmentin to complete his antibiotic course. Suspected enterococcus in the setting of his recent invasive procedure for ureteral stones and stenting. No other identifiable source was identified. At followup, please; 1. Please evaluate for continued resolution of symptoms on antibiotics. 2. No other specific labs or vitals are pending at the time of discharge. Reasons to return to the hospital including but not limited to recurrent or worsening symptoms including weakness, shortness of breath, chest pain, nausea, vomiting, lightheadedness, loss of consciousness or near loss of consciousness, or any fevers were discussed at length with the patient. He acknowledged understanding. TIME SPENT: Greater than 45 minutes was spent on the discharge of this patient , greater than half was spent [id number] with the patient. [id number]/[facility] #: [id number] RUDY
== END 2018-01-21 19:23 | disposition home or self-care (01) | DRG 872 ==
LOC: ED 19:22 → MED 01-19 00:57
PROVIDERS: ADMIT Hospitalist; ATTEND Internal Medicine
DX: A41.81 Sepsis due to Enterococcus (principal); F32.9 Major depressive disorder, single episode, unspecified; E11.8 Type 2 diabetes mellitus with unspecified complications; E78.5 Hyperlipidemia, unspecified; G71.11 Myotonic muscular dystrophy; F17.290 Nicotine dependence, other tobacco product, uncomplicated; Z86.73 Personal history of transient ischemic attack (TIA), and cerebral infarction without residual deficits; Z79.84 Long term (current) use of oral hypoglycemic drugs; Z79.82 Long term (current) use of aspirin; Z79.899 Other long term (current) drug therapy; Z88.5 Allergy status to narcotic agent; Z82.49 Family history of ischemic heart disease and other diseases of the circulatory system; E87.6 Hypokalemia; R16.2 Hepatomegaly with splenomegaly, not elsewhere classified
CPT/HCPCS: 36415; 70450; 71045; 74018; 74176; 80048; 80053; 80076; 81003; 81015; 83605; 84484; 85025; 85610; 85730; 86140; 86618; 87040; 87077; 87086; 87150; 87186; 87205; 87502; 87899; 93975; 99285; A9270-GY; J1644; J2543; J3480

== ENCOUNTER 2018-03-12 07:32 | Day surgery (SDC) | payer MEDICARE ==
--- NOTE | 2018-03-06 00:23 | HP ---
CC: Dr. Mccullough * ADMITTING HISTORY AND PHYSICAL: DATE OF ADMISSION: 03/12/18 ADMITTING DIAGNOSIS: Left renal calculus. PLANNED PROCEDURES: Shock wave lithotripsy of left renal calculus. SURGEON: Dr. Lizama. HISTORY OF PRESENT ILLNESS: Aly Ren is a 63-year-old gentleman with a history of recurrent renal calculi. He had undergone left stent insertion on for an obstructing calculus in the left proximal ureter, which was pushed into the kidney at that time with stent insertion. He also had sepsis including positive blood cultures and was treated by the hospitalist service for that. He is now being brought in for shock wave lithotripsy. His most recent urine culture on 01/31/18 was negative. PAST MEDICAL HISTORY: Significant for: 1. Diabetes mellitus. 2. Myotonic dystrophy. 3. Hyperlipidemia. 4. Depression. MEDICATIONS: On admission, 1. Flomax 0.8 mg once a day. 2. Metformin 500 mg q.a.m. and 1000 mg q.p.m. 3. Lipitor 10 mg daily. 4. Doxepin 300 mg daily. ALLERGIES: CODEINE. SOCIAL HISTORY: Smoking history, he is a lifelong smoker. PHYSICAL EXAMINATION GENERAL: He is a pleasant middle-aged gentleman. VITAL SIGNS: Blood pressure is 130/88, pulse 92 per minute, oxygen saturation 96% on room air, temperature 97.1. LUNGS: Clear bilaterally. CARDIOVASCULAR: Regular rate and rhythm. S1, S2. ABDOMEN: Soft with mild left flank tenderness. IMPRESSION: A 63-year-old gentleman, who has a left stent in place and has a calculus, which is now in the lower pole of the left kidney. PLAN: Plan is for shock wave lithotripsy of left renal calculus. [id number]/[facility] #: [id number] [facility]
[~2018-03-12 07:32] MED LIST changes: +Gentamicin ADULT (*) 160 MG in NS 0.9% 100 ML* 100 ML IVPB ONE; +cefTRIAXone(*) 2 GM in NS 0.9% 100 ML* 100 ML IVPB ONE
[2018-03-12] MEDS ORDERED: cefTRIAXone(*) 2 GM ADDV.VIAL IVPB ONE (08:04)
--- NOTE | 2018-03-12 08:38 | RAD ---
INDICATION: Left-sided nephrolithiasis. Lithotripsy. COMPARISON: January 19, 2018 TECHNIQUE: A single view of the abdomen is submitted. FINDINGS: Bones: There are no acute bony findings. Soft tissues: The soft tissues appear normal. The psoas margins are sharp. Bowel gas pattern: Normal Calcifications: There is a 1 cm calcification projecting over the lower pole of the left kidney. Formerly there were at least 2 discrete calculi. Other: There is left ureteral stent unchanged in position IMPRESSION: LEFT-SIDED NEPHROLITHIASIS
[2018-03-12] MEDS ORDERED: fentaNYL* 50 MCG/ML 2 ML VIAL (100 MCG VIAL) ONE (08:58)
[2018-03-12] MEDS ORDERED: Midazolam* 1 MG/ML 2 ML VIAL (2 MG) ONE (09:01)
[2018-03-12] MEDS ORDERED: Lidocaine 2% PF * 5 ML VIAL ONE (09:41)
[2018-03-12] MEDS ORDERED: Chloroprocaine 2%* 20 ML VIAL ONE (09:41)
[2018-03-12] MEDS ORDERED: EPHEDrine (Pressors)* 50 MG/ML VIAL ONE (10:17)
[2018-03-12] MEDS ORDERED: Naloxone* 0.4 MG/ML 1 ML VIAL IV PRN (10:38)
[2018-03-12] MEDS ORDERED: Ondansetron INJ* 2 MG/ML VIAL IV PRN (10:38)
[2018-03-12] MEDS ORDERED: fentaNYL* 50 MCG/ML 2 ML VIAL (100 MCG VIAL) IV PRN (10:38)
[2018-03-12] MEDS ORDERED: Acetaminophen TAB* 325 MG PO PRN (10:38)
--- NOTE | 2018-03-12 12:07 | OP ---
CC: Dr. Meghan Mccullough; Dr. Lizama OPERATIVE REPORT: DATE OF OPERATION: 03/12/18 DATE OF : 51 SURGEON: Matthew Lizama MD ANESTHESIOLOGIST: Dr. Kwong. ANESTHESIA: General. PRE-OP DIAGNOSIS: Left renal calculi. POST-OP DIAGNOSIS: Left renal calculi. OPERATIVE PROCEDURE: Shock wave lithotripsy of left renal calculi. INDICATIONS: Aly Ren is a 63-year-old gentleman with a history of recurrent renal calculi. H jeri had undergone urgent stent insertion for an obstructing calculus and is now being brought in for li thotripsy. COMPLICATIONS: None. POSTOPERATIVE CONDITION: Stable. DESCRIPTION OF PROCEDURE: After induction of general anesthesia (after initial failed attempt at spi nal anesthesia), the patient was placed on the lithotripsy table in supine position. There was a clu ster of calculi in the lower pole of the left kidney, which was localized using fluoroscopy. Shock w ave lithotripsy was commenced at rate of 60 shocks per minute. After the initial 300 shocks, there w as a pause in lithotripsy for several minutes in an effort to minimize any potential trauma to the ki dney. Lithotripsy was then resumed and periodic imaging revealed good localization and fragmentation . A total of 2500 shocks were administered. The patient tolerated the procedure satisfactorily and w as transferred back to the recovery area in stable condition. [id number]/[facility] #: [id number]
[2018-03-12 12:18] VITALS: BP 136/80
--- NOTE | 2018-03-12 12:45 | RAD ---
INDICATION: Left lithotripsy COMPARISON: March 12, 2018 TECHNIQUE: A single view of the abdomen is submitted. FINDINGS: Bones: There are no acute bony findings. Soft tissues: The soft tissues appear normal. The psoas margins are sharp. Bowel gas pattern: Normal Calcifications: There is interval fragmentation of the left renal calculus. Multiple fragments project over the lower pole. Other: None IMPRESSION: INTERVAL FRAGMENTATION OF THE LEFT RENAL CALCULUS
== END 2018-03-12 12:21 | disposition home or self-care (01) ==
LOC: OR 07:32
PROVIDERS: ATTEND Urology
DX: N20.0 Calculus of kidney (principal); Z87.442 Personal history of urinary calculi; Z72.0 Tobacco use; E11.9 Type 2 diabetes mellitus without complications; Z79.84 Long term (current) use of oral hypoglycemic drugs; E78.5 Hyperlipidemia, unspecified; G71.11 Myotonic muscular dystrophy; F32.9 Major depressive disorder, single episode, unspecified
CPT/HCPCS: 74018; J0696; J1580; J2250; J2400; J3010

== ENCOUNTER 2018-10-07 14:39 | Emergency (ER) | payer MEDICARE ==
[2018-10-07] MEDS ORDERED: NS 0.9% 1000 ML** 1,000 ML IV ONE (15:56)
[2018-10-07] MEDS ORDERED: Ondansetron INJ* 2 MG/ML VIAL IV ONE (15:56)
[2018-10-07] MEDS ORDERED: Ketorolac INJ* 30 MG/ML 1 ML VIAL IV PUSH ONE (15:56)
[2018-10-07 16:24] LABS: ABS Basophils 0 10^3/ul (0-0.2); ABS Eosinophils 0 10^3/ul (0-0.6); ABS Lymphocytes 0.6 10^3/ul (1.0-4.8); ABS Monocytes 0.5 10^3/ul (0-0.8); ABS Neutrophils 5.7 10^3/ul (1.5-7.7); ABS Nucleated RBC 0 10^3/ul; Eosinophil % 0.2 %; Hematocrit 46 % (42-52); Hemoglobin 15.5 g/dl (14.0-18.0); Lymphocyte % 9.3 %; Mean Corpuscular HGB Conc 34 g/dl (31-36); Mean Corpuscular Hemoglobin 30 pg (27-31); Mean Corpuscular Volume 90 fL (80-94); Mean Platelet Volume 8.4 fL (7.4-10.4); Nucleated Red Blood Cells % 0; Platelet Count 178 10^3/ul (150-450); Red Cell Distribution Width 16 % (10.5-15); White Blood Count 6.8 10^3/ul (3.5-10.8)
[2018-10-07 16:42] LABS: Albumin 4.6 g/dL (3.2-5.2); Albumin/Globulin Ratio 1.8 (1-3); BUN/Creatinine Ratio 18.9 (8-20); C Reactive Protein 12.05 mg/L (<8.01); EGFR African American 128.4 (>60); EGFR Non-African American 106.2 (>60); Globulin 2.5 g/dL (2-4); Potassium 4.5 mmol/L (3.5-5.0); Total Bilirubin 1.5 mg/dL (0.2-1.0); Total Protein 7.1 g/dL (6.4-8.9)
--- NOTE | 2018-10-07 17:32 | ED ---
GI/ HPI - HPI Summary HPI Summary: Pt is a 63 y/o male who presents to the ED c/o left flank pain. He states the pain began 2 days ago and became worse today. Pt has a hx of kidney stones, and states the pain feels similar and is a dull ache. He gets kidney stones about every 8 months, and has constant discomfort. Pt has an appointment with Dr. Lizama in 2 weeks. The pain is constant but fluctuates in severity; it was rated a 7/10 in severity before but now is rated a 3/10. He also c/o dark-colored urine, nausea, and occasional miniature episodes of emesis, during which the spits up some vomit. Pt denies any dysuria, hematuria, testicular pain, MUKHERJEE, fever, CP, SOB, or diarrhea. He has not taken any medications for his symptoms. - History of Current Complaint Chief Complaint: EDFlankPain Time Seen by Provider: 10/07/18 17:24 Stated Complaint: LEFT FLANK PAIN Hx Obtained From: Patient Onset/Duration: Started Days Ago - 2, Worse Since Timing: Constant Severity: Moderate - 7/10 Current Severity: Mild - 3/10 Pain Intensity: 3 Location of Pain: Flank - left Pain Characteristics: Dull - ache Associated Signs and Symptoms: Positive: Nausea, Vomiting, Flank Pain. Negative : Diarrhea, Fever, Hematuria, Dysuria, Chest Pain Aggravating Factor(s): Nothing - Additional Pertinent History Primary Care Physician: [id number] - Allergy/Home Medications Allergies/Adverse Reactions: Allergies Allergy/AdvReac Type Severity Reaction Status Date / Time codeine Allergy Rash And Verified 03/12/18 07:51 Itching PMH/Surg Hx/FS Hx/Imm Hx Endocrine/Hematology History: Reports: Hx Diabetes - Metformin Cardiovascular History: Reports: Other Cardiovascular Problems/Disorders - Elevated cholesterol Denies: Hx Congestive Heart Failure, Hx Hypertension Respiratory History: Denies: Other Respiratory Problems/Disorders GI History: Reports: Hx Diverticulosis, Hx Gastroesophageal Reflux Disease - VERY MILD Denies: Other GI Disorders History: Reports: Hx Kidney Stones - states has had 10 stone throughout his history- left stone at present /, Other Problems/Disorders - Stents placed in ureter Comment Only: Hx Benign Prostatic Hyperplasia - possible Musculoskeletal History: Reports: Other Musculoskeletal History - myotonic dystrophy Denies: Hx Arthritis, Hx Gout Sensory History: Reports: Hx Cataracts - BILATERAL, Hx Contacts or Glasses - glasses, Hx Hearing Problem - mildly ALATNA Denies: Hx Hearing Aid Opthamlomology History: Reports: Hx Cataracts - BILATERAL, Hx Contacts or Glasses - glasses Neurological History: Reports: Hx Migraine - HX OF, NONE RECENT, Other Neuro Impairments/Disorders - MYOTONIC DYSTROPHY Denies: Hx Seizures Psychiatric History: Reports: Hx Anxiety - WELL CONTROLLED- ON MEDICATION FOR, Hx Depression - WELL CONTROLLED- ON MEDICATION FOR, Hx Suicide Attempt Denies: Hx Substance Abuse - Cancer History Hx Chemotherapy: No - Surgical History Surgery Procedure, Year, and Place: Kidney stones 2010 [facility] [place]. HERNIA REPAIR 1999. SINUS SURGERY MANY YRS AGO. VASECTOMY . 12/2015-RIGHT KIDNEY STONE SURGERY AND STENT INSERTION. 01/29/16, LEFT URETERAL STENT, [facility] [place]. 01/26 stent insertion- hospitalization for sepsis 3 days later Hx Anesthesia Reactions: Yes - Bradley wiped out after last stent replacement 01/26 Infectious Disease History: No Infectious Disease History: Denies: Traveled Outside the [place] in Last 30 Days - Family History Known Family History: Negative: Diabetes - Social History Alcohol Use: None Alcohol Amount: 1 Q3 WEEKS Hx Substance Use: No Substance Use Type: Reports: None Hx Tobacco Use: Yes Smoking Status (MU): Former Smoker Type: Cigarettes Amount Used/How Often: USES E-CIG//1 PPD X 40 YEARS PRIOR TO E-CIGARETTES Length of Time of Smoking/Using Tobacco: 40+ YRS Have You Smoked in the Last Year: No Review of Systems Negative: Fever Negative: Chest Pain Negative: Shortness Of Breath Positive: Vomiting, Nausea. Negative: Diarrhea Positive: flank pain - left, other - dark urine, NEGATIVE: testicular pain. Negative: dysuria, hematuria Negative: Headache All Other Systems Reviewed And Are Negative: Yes Physical Exam - Summary Physical Exam Summary: Appearance: Well appearing, no pain distress Skin: warm, dry, reflects adequate perfusion Head/face: normal Eyes: EOMI, VON ENT: mucous membranes moist Neck: supple, non-tender Respiratory: CTA, breath sounds present Cardiovascular: RRR, pulses symmetrical Abdomen: non-tender, soft Bowel Sounds: present Musculoskeletal: normal, strength/ROM intact Neuro: normal, sensory motor intact, A&Ox3 Triage Information Reviewed: Yes Vital Signs On Initial Exam: Initial Vitals Temp Pulse Resp BP Pulse Ox 98.5 F 94 18 135/76 95 10/07/18 14:43 01/27/19 14:43 10/07/18 14:43 10/07/18 14:43 10/07/18 14:43 Vital Signs Reviewed: Yes Diagnostics - Vital Signs Vital Signs Temp Pulse Resp BP Pulse Ox 10/07/18 17:18 81 145/81 93 10/07/18 17:17 86 92 10/07/18 14:43 98.5 F 94 18 135/76 95 - Laboratory Lab Results: Lab Results 10/07/18 10/07/18 10/07/18 Range/Units 16:17 16:17 16:17 WBC 6.8 (3.5-10.8) 10^3/ul RBC 5.10 (4.00-5.40) 10^6/ul Hgb 15.5 (14.0-18.0) g/dl Hct 46 (42-52) % MCV 90 (80-94) fL MCH 30 (27-31) pg MCHC 34 (31-36) g/dl RDW 16 H (10.5-15) % Plt Count 178 (150-450) 10^3/ul MPV 8.4 (7.4-10.4) fL Neut % (Auto) 83.1 % Lymph % (Auto) 9.3 % [place] % (Auto) 7.0 % Eos % (Auto) 0.2 % Baso % (Auto) 0.4 % Absolute Neuts (auto) 5.7 (1.5-7.7) 10^3/ul Absolute Lymphs (auto) 0.6 L (1.0-4.8) 10^3/ul Absolute Monos (auto) 0.5 (0-0.8) 10^3/ul Absolute Eos (auto) 0 (0-0.6) 10^3/ul Absolute Basos (auto) 0 (0-0.2) 10^3/ul Absolute Nucleated RBC 0 10^3/ul Nucleated RBC % 0 Sodium 139 (135-145) mmol/L Potassium 4.5 (3.5-5.0) mmol/L Chloride 105 (101-111) mmol/L Carbon Dioxide 27 (22-32) mmol/L Anion Gap 7 (2-11) mmol/L BUN 14 (6-24) mg/dL Creatinine 0.74 (0.67-1.17) mg/dL Est GFR ( Amer) 128.4 (>60) Est GFR (Non-Af Amer) 106.2 (>60) BUN/Creatinine Ratio 18.9 (8-20) Glucose 228 H (70-100) mg/dL Lactic Acid 2.3 H* (0.5-2.0) mmol/L Calcium 10.0 (8.6-10.3) mg/dL Total Bilirubin 1.50 H (0.2-1.0) mg/dL AST 30 (13-39) U/L ALT 34 (7-52) U/L Alkaline Phosphatase 82 (34-104) U/L C-Reactive Protein 12.05 H (<8.01) mg/L Total Protein 7.1 (6.4-8.9) g/dL Albumin 4.6 (3.2-5.2) g/dL Globulin 2.5 (2-4) g/dL Albumin/Globulin Ratio 1.8 (1-3) Lipase 11 (11.0-82.0) U/L Result Diagrams: 10/07/18 16:17 10/07/18 16:17 Diagnostic Studies Comment: UA neg for bacteria Lab Statement: Any lab studies that have been ordered have been reviewed, and results considered in the medical decision making process. - CT CT A/P CT Interpretation Completed By: Radiologist Summary of CT Findings: There is left hydronephrosis and proximal left hydroureter with a 4 mm calculi in the left ureter at the L3-L4 level. Perinephric infiltration of fat is noted. Renal cysts are noted. Hepatic steatosis is noted. ED physician reviewed radiology report. GIGU Course/Dx - Course Course Of Treatment: Nurse's notes reviewed. Patient with a history of renal colic presents with similar symptoms. Knowledges his predominant complaint. There is no fever. There is inflammatory cells in the urine but no bacteria. Culture was sent. A dose of Rocephin was given here. The patient has no fever. There is no CVA tenderness. He was feeling well and discharged to follow closely with his urologist Dr. Lizama. - Diagnoses Differential Diagnoses - Male: Other - Renal colic, obstructing stone with uropathy, pyelonephritis, UTI, prostatitis Provider Diagnoses: Renal colic on left side, Calcium ureterolithiasis Discharge - Sign-Out/Discharge Documenting (check all that apply): Patient Departure - Discharge Plan Condition: Improved Disposition: HOME Prescriptions: Hydrocodone/Acetaminophen [[place] 5-325 Tablet] 1 each PO Q6H PRN #12 tablet MDD 4 PRN Reason: more severe pain Naproxen [Naproxen 250 mg tab] 250 mg PO BID PRN #10 tablet PRN Reason: Pain Ondansetron ODT TAB* [Zofran 4 MG Odt TAB*] 4 mg PO Q6H PRN #12 tab.odt PRN Reason: Nausea Patient Education Materials: Kidney Stones (ED) Referrals: Meghan Mccullough MD [Primary Care Provider] - Matthew Lizama MD [Medical Doctor] - Additional Instructions: Call Dr. Lizama first thing in the morning to schedule prompt follow-up. Drink plenty of fluids. Return with uncontrolled pain, vomiting, fever, worse, new symptoms or other concerns as discussed. - Billing Disposition and Condition Condition: IMPROVED Disposition: Home - Attestation Statements Document Initiated by Scribe: Yes Documenting Scribe: Nydia Cohn Provider For Whom Beaue is Documenting (Include Credential): Benny Power MD Scribe Attestation: Nydia Irby, scribed for Benny Power MD on 10/07/18 at 1858. Scribe Documentation Reviewed: Yes Provider Attestation: The documentation as recorded by the Nydia cheung accurately reflects the service I personally performed and the decisions made by me, Benny Power MD Status of Scribe Document: Viewed
[2018-10-07] MEDS ORDERED: Tamsulosin CAP* 0.4 MG PO ONE (17:36)
[2018-10-07 18:43] LABS: Urine Appearance Cloudy; Urine Bacteria Absent (Absent); Urine Bilirubin Negative (Negative); Urine Blood 3+ (Negative); Urine Color Amber; Urine Glucose 2+(150 mg/dL) (Negative); Urine Ketones Negative (Negative); Urine Nitrite Negative (Negative); Urine Protein Negative (Negative); Urine Red Blood Cell 3+(>10/hpf) (Absent); Urine Urobilinogen Positive (Negative); Urine White Blood Cell 3+(>20/hpf) (Absent)
[2018-10-07] MEDS ORDERED: cefTRIAXone(*) 1 GM in NS 0.9% 50 ML* 50 ML IVPB ONE (18:50)
[2018-10-07 19:50] VITALS: BP 141/83
--- NOTE | 2018-10-10 15:00 | PN ---
Progress Note - Progress Note Date of Service: 10/07/18 Note: Patient seen in ER 10/07 and diagnosed with a obstructing 4 mm kidney stone. Urinalysis at that time did show elevated leukocytes without nitrites. Patient was given a dose of Rocephin in the ER and discharged without antibiotics. He was follow-up with urology. Urine culture today is growing greater than 100, 000 enterococcus faecalis. I called and spoke with patient today to discuss urine culture. Patient states he is feeling much better and his pain has resolved. He denies fever, chills, nausea, vomiting. Will start on antibiotics based on culture. I did discuss case with patient's urologist, Dr. Lizama. He agrees with antibiotics and outpatient follow-up. Patient will return if symptoms change or worsen.
== END 2018-10-07 19:51 | disposition home or self-care (01) ==
LOC: ED 14:39
DX: N23 Unspecified renal colic (principal); R11.2 Nausea with vomiting, unspecified; N20.1 Calculus of ureter; R10.84 Generalized abdominal pain; Z87.891 Personal history of nicotine dependence
CPT/HCPCS: 36415; 74176; 80053; 81003; 81015; 83605; 83690; 85025; 86140; 87077; 87086; 87186; 99284; J0696; J1885; J2405

== ENCOUNTER 2018-10-17 06:04 | Day surgery (SDC) | payer MEDICARE ==
--- NOTE | 2018-10-15 19:52 | HP ---
CC: Dr. Mccullough * ADMITTING HISTORY AND PHYSICAL: DATE OF ADMISSION: 10/17/18 ADMITTING DIAGNOSES: 1. Left ureteral calculi. 2. Recent urinary tract infection. 3. Left renal calculus. PLANNED PROCEDURE: Left ureteroscopy, possible laser and stent insertion ( possibly to be followed in the near future by shockwave lithotripsy). SURGEON: Dr. Lizama. HISTORY OF PRESENT ILLNESS: Aly Ren is a 63-year-old gentleman with a history of recurrent renal calculi. He recently had been in the emergency room and had been noted to have left ureteral calculus with associated urinary tract infection for which he is currently on Cipro. Recent renal sonogram revealed what appeared to be 2 persistent calculi in the left distal ureter and he is now being brought in for management of the same. In addition, he has an 8 mm calculus in the lower pole of the left kidney, which may require repeat lithotripsy in the future. PAST MEDICAL HISTORY: Significant for: 1. Diabetes mellitus. 2. High cholesterol. 3. BPH. 4. Recurrent renal calculi. MEDICATIONS ON ADMISSION: 1. Doxepin 100 mg 3 tablets q.h.s. 2. Metformin 500 mg q.a.m. and 1000 mg q.p.m. 3. Atorvastatin 10 mg daily. 4. Flomax 0.8 mg daily. 5. Aspirin 81 mg. 6. Cipro 500 mg b.i.d. ALLERGIES AND INTOLERANCES: CODEINE. REVIEW OF SYSTEMS: He denies any chest pain or shortness of breath. There is no history of any cardiovascular illness. PHYSICAL EXAMINATION GENERAL: Reveals a pleasant middle-aged gentleman. VITAL SIGNS: Blood pressure is 132/80, pulse 80 per minute and regular, temperature 96.8, oxygen saturation 99% on room air. LUNGS: Clear bilaterally. CARDIOVASCULAR: Regular rate and rhythm. S1, S2. ABDOMEN: Soft with left flank tenderness. IMPRESSION AND PLAN: I discussed the procedure of left ureteroscopy, possible laser and stent insertion in detail with the patient. I also explained the possible need for lithotripsy in the near future depending on the postoperative x- ray findings. All his questions were answered. Plan is left ureteroscopy, possible laser and stent insertion (possibly to be followed by lithotripsy). [id number]/[facility] #: [id number] [facility]
[~2018-10-17 06:04] MED LIST changes: -Buffered Lidocaine 0.9% SYRIN* 5 ML/SYR SYRINGE INTRADERM ONE; +Buffered Lidocaine 1% SYRIN* 1 ML/SYRINGE INTRADERM ONE; +Lactated Ringers 1000 ML Bag* 1,000 ML IV SCH; -cefTRIAXone(*) 2 GM in NS 0.9% 100 ML* 100 ML IVPB ONE
[2018-10-17] MEDS ORDERED: cefTRIAXone(*) 2 GM ADDV.VIAL IVPB ONE (06:43)
[2018-10-17] MEDS ORDERED: Iohexol 180 (CONTRAST) 10 ML SDV IV ONE (07:18)
[2018-10-17] MEDS ORDERED: Midazolam* 1 MG/ML 2 ML VIAL (2 MG) ONE (07:27)
[2018-10-17] MEDS ORDERED: fentaNYL* 50 MCG/ML 2 ML VIAL (100 MCG VIAL) ONE (07:27)
[2018-10-17] MEDS ORDERED: Lidocaine 2% PF * 5 ML VIAL ONE (07:43)
[2018-10-17] MEDS ORDERED: Phenylephrine IV* 40 MCG/ML 10 ML SYRINGE ONE (07:43)
[2018-10-17] MEDS ORDERED: Ondansetron INJ* 2 MG/ML VIAL ONE (07:44)
[2018-10-17] MEDS ORDERED: Propofol* 10 MG/ML 20 ML BTL ONE (07:44)
[2018-10-17] MEDS ORDERED: EPHEDrine (Pressors)* 50 MG/ML VIAL ONE (07:49)
[2018-10-17] MEDS ORDERED: HYDROmorphone INJ1* 1 MG/ML SYRINGE IV PRN (08:24)
[2018-10-17] MEDS ORDERED: fentaNYL* 50 MCG/ML 2 ML VIAL (100 MCG VIAL) IV PRN (08:24)
[2018-10-17] MEDS ORDERED: Naloxone* 0.4 MG/ML 1 ML VIAL IV PRN (08:24)
--- NOTE | 2018-10-17 10:28 | OP ---
DATE OF OPERATION: 10/17/18 - [facility] DATE OF : 51 SURGEON: Dr. Lizama. ANESTHESIOLOGIST: Dr. Rubio. ANESTHESIA: General. PRE-OP DIAGNOSES: 1. Left flank pain. 2. Left hydronephrosis. POST-OP DIAGNOSES: 1. Left flank pain. 2. Left hydronephrosis. OPERATIVE PROCEDURE: Cystoscopy, left retrograde pyelogram, left ureteroscopy, and left pyeloscopy. COMPLICATIONS: None. INDICATIONS: Aly Ren is a 63-year-old gentleman with a history of recurrent renal and ureteral calculi. He was recently evaluated for history of left flank pain and persistent left ureteral calculi and a recent urinary tract infection. OPERATIVE FINDINGS: 1. Mildly enlarged prostate. 2. Mild left hydronephrosis and hydroureter with no definite calculus noted in distal, mid, or proximal left ureter or left renal pelvis. POSTOPERATIVE CONDITION: Stable. DESCRIPTION OF PROCEDURE: After induction of general anesthesia, the patient was placed in dorsal lithotomy position. Sequential compression devices were in place and functioning. Initial cystoscopy revealed a normal-appearing urethra, a mildly enlarged prostate, and a normal-appearing bladder. A guidewire was introduced into the left ureter. Retrograde pyelogram revealed fullness of the left collecting system and the proximal left ureter. A 6- Ug[place] semi-rigid ureteroscope was introduced and advanced under direct vision. There were some mild inflammatory changes noted in the distal and mid left ureter, but no calculi were visualized. The ureteroscope was carefully advanced proximally and the entire distal, mid, and proximal ureter were visualized, and the ureteroscope was then advanced into the renal pelvis. Pyeloscopy was performed and the collecting system appeared dilated with no definite calculus noted in the renal pelvis or the upper or mid pole. The ureteroscope was carefully withdrawn under direct vision. I did not see the requirement to put a stent in as the procedure was fairly atraumatic and the bladder was emptied at the end of the procedure. The patient tolerated the procedure satisfactorily and was transferred back to the recovery area in stable condition. [id number]/[facility] #: [id number] MTDD
[2018-10-17 10:29] VITALS: BP 113/79
== END 2018-10-17 10:35 | disposition home or self-care (01) ==
LOC: OR 06:04
PROVIDERS: ATTEND Urology
DX: N13.30 Unspecified hydronephrosis (principal); Z87.442 Personal history of urinary calculi; Z87.440 Personal history of urinary (tract) infections; E11.9 Type 2 diabetes mellitus without complications; Z79.84 Long term (current) use of oral hypoglycemic drugs; E78.00 Pure hypercholesterolemia, unspecified; G71.00 Muscular dystrophy, unspecified
CPT/HCPCS: 74018; 74420; J0696; J1580; J2250; J2405; J2704; J3010

== ENCOUNTER 2018-10-22 11:55 | Day surgery (SDC) | payer MEDICARE ==
[~2018-10-22 11:55] MED LIST changes: +Famotidine IV* 10 MG/ML 2 ML (20 mg) IV ONE; -Gentamicin ADULT (*) 160 MG in NS 0.9% 100 ML* 100 ML IVPB ONE; +Naloxone* 0.4 MG/ML 1 ML VIAL IV PRN; +Ondansetron INJ* 2 MG/ML VIAL IV PRN; +fentaNYL* 50 MCG/ML 2 ML VIAL (100 MCG VIAL) IV PRN
[2018-10-22] MEDS ORDERED: Famotidine IV* 10 MG/ML 2 ML (20 mg) ONE (12:34)
[2018-10-22] MEDS ORDERED: Levofloxacin 500 MG IVPREMIX(* 500 MG/100 ML BAG IVPB ONE (12:34)
[2018-10-22] MEDS ORDERED: Midazolam* 1 MG/ML 5 ML VIAL (5 MG) ONE (14:08)
[2018-10-22] MEDS ORDERED: Propofol* 10 MG/ML 20 ML BTL ONE (14:08)
[2018-10-22] MEDS ORDERED: fentaNYL* 50 MCG/ML 2 ML VIAL (100 MCG VIAL) ONE (14:08)
[2018-10-22] MEDS ORDERED: Dexamethasone IV* 4 MG/ML 1 ML (4 MG) ONE (14:08)
[2018-10-22] MEDS ORDERED: Lidocaine 2% PF * 5 ML VIAL ONE (14:08)
[2018-10-22] MEDS ORDERED: Ondansetron INJ* 2 MG/ML VIAL ONE (14:08)
[2018-10-22] MEDS ORDERED: Ketorolac INJ* 30 MG/ML 1 ML VIAL ONE (14:08)
[2018-10-22] MEDS ORDERED: VASOPRESSIN 20 UNITS/ML 1 ML VIAL ONE (15:11)
[2018-10-22 16:50] VITALS: BP 132/67
--- NOTE | 2018-10-22 21:08 | OP ---
CC: Dr. Mccullough * DATE OF OPERATION: 10/22/18 - [facility] DATE OF : 51 SURGEON: Matthew Lizama MD. ANESTHESIOLOGIST: Dr. Palacio. ANESTHESIA: General. PRE-OP DIAGNOSIS: Left renal calculi. POST-OP DIAGNOSIS: Left renal calculi. OPERATIVE PROCEDURE: Shockwave lithotripsy of left renal calculi. COMPLICATIONS: None. INDICATIONS: Aly Ren is a 63-year-old gentleman with a history of recurrent renal and and ureteral calculi. He was recently noted to have residual left renal calculi and is now being brought in for lithotripsy for definitive treatment of the calculi. POSTOPERATIVE CONDITION: Stable. DESCRIPTION OF PROCEDURE: After induction of general anesthesia, the patient was placed on the lithotripsy table in the supine position. The calculi in the lower pole of the left kidney were targeted using fluoroscopy and shockwave lithotripsy was commenced at a rate of 60 shocks per minute. After the initial 300 shocks, there was a pause in lithotripsy for several minutes in an effort to minimize any potential trauma to the kidney. Lithotripsy was then resumed and a total of 2400 shocks were administered. The patient tolerated the procedure satisfactorily and was transferred back to the recovery area in stable condition. [id number]/[facility] #: [id number] MTDD
== END 2018-10-22 17:45 | disposition home or self-care (01) ==
LOC: OR 11:55
PROVIDERS: ATTEND Urology
DX: N20.0 Calculus of kidney (principal); Z87.442 Personal history of urinary calculi; Z87.440 Personal history of urinary (tract) infections; E11.9 Type 2 diabetes mellitus without complications; Z79.84 Long term (current) use of oral hypoglycemic drugs; N40.0 Benign prostatic hyperplasia without lower urinary tract symptoms; G71.11 Myotonic muscular dystrophy; R16.2 Hepatomegaly with splenomegaly, not elsewhere classified
CPT/HCPCS: 74018; J1100; J1885; J1956; J2250; J2405; J2704; J3010

== ENCOUNTER 2019-02-10 23:34 | Observation (INO) | payer MEDICARE ==
[2019-02-10] MEDS ORDERED: NS 0.9% 1000 ML** 1,000 ML IV ONE (23:36)
--- NOTE | 2019-02-10 23:40 | ED ---
Neurological HPI - HPI Summary HPI Summary: This patient is a 64 year old M brought to ED via EMS with a chief complaint of right facial droop since 2244. Patient was with his family who also noticed slurred speech at that time. 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 EMS notes that patients symptoms seem to be improving on the ambulance. On arrival, patient is not dysarthric and does not have facial droop. Odilia Echeverria called 5. EMS arrives 2333. Dr. Jones at bedside at 2334. Patient sent immediately to CT. Patient takes baby aspirin. Patient reports the pain 0/10. Symptoms aggravated by nothing. Symptoms alleviated by nothing. Patient denies fever. PMHx of DM, migraines, myotonic dystrophy. - History of Current Complaint Stated Complaint: FACIAL DROOP, SLURRED SPEECH PER EMS Last Known Well Date: 2244, 02/10/19 Hx Obtained From: Patient, EMS Onset/Duration: Sudden Onset, Still Present Number of Seizures: 0 Neurological Deficit Location: Facial - Right-side facial droop Character: Other: - Slurred speech, right-side facial droop Aggravating: Nothing Alleviating: Nothing Associated Signs and Symptoms: Positive: Impaired Speech - Slurred. Negative: Fever - Additional Pertinent History Primary Care Physician: [id number] - Allergy/Home Medications Allergies/Adverse Reactions: Allergies Allergy/AdvReac Type Severity Reaction Status Date / Time codeine Allergy Rash And Verified 10/22/18 12:29 Itching PMH/Surg Hx/FS Hx/Imm Hx Endocrine/Hematology History: Reports: Hx Diabetes - Metformin Cardiovascular History: Reports: Other Cardiovascular Problems/Disorders - Elevated cholesterol Denies: Hx Congestive Heart Failure, Hx Hypertension Respiratory History: Denies: Other Respiratory Problems/Disorders GI History: Reports: Hx Diverticulosis, Hx Gastroesophageal Reflux Disease - VERY MILD Denies: Other GI Disorders History: Reports: Hx Kidney Stones - states has had 10 stone throughout his history- left stone at present /, Other Problems/Disorders Comment Only: Hx Benign Prostatic Hyperplasia - possible Musculoskeletal History: Reports: Other Musculoskeletal History - myotonic dystrophy Denies: Hx Arthritis, Hx Gout Sensory History: Reports: Hx Cataracts - BILATERAL, Hx Contacts or Glasses - glasses, Hx Hearing Aid, Hx Hearing Problem - mildly [place] [facility] History: Reports: Hx Cataracts - BILATERAL, Hx Contacts or Glasses - glasses Neurological History: Reports: Hx Migraine - HX OF, NONE RECENT, Other Neuro Impairments/Disorders - MYOTONIC DYSTROPHY Denies: Hx Seizures Psychiatric History: Reports: Hx Anxiety - WELL CONTROLLED- ON MEDICATION FOR, Hx Depression - WELL CONTROLLED- ON MEDICATION FOR, Hx Suicide Attempt Denies: Hx Substance Abuse - Cancer History Hx Chemotherapy: No - Surgical History Surgery Procedure, Year, and Place: Kidney stones 2010 [facility] [place]. HERNIA REPAIR 1999. SINUS SURGERY MANY YRS AGO. VASECTOMY . 12/2015-RIGHT KIDNEY STONE SURGERY AND STENT INSERTION. 01/29/16, LEFT URETERAL STENT, [facility] [place]. 01/26 stent insertion- hospitalization for sepsis 3 days later Hx Anesthesia Reactions: Yes - Vader wiped out after last stent replacement 01/26 - Family History Known Family History: Negative: Diabetes - Social History Alcohol Use: Rare Alcohol Amount: 1 Q3 WEEKS Hx Substance Use: No Substance Use Type: Reports: None Hx Tobacco Use: Yes Smoking Status (MU): Former Smoker Type: Cigarettes Amount Used/How Often: USES E-CIG//1 PPD X 40 YEARS PRIOR TO E-CIGARETTES Length of Time of Smoking/Using Tobacco: 40+ YRS Have You Smoked in the Last Year: No Review of Systems Negative: Fever Neurological: Other - Right-side facial droop. Positive: Slurred Speech All Other Systems Reviewed And Are Negative: Yes Physical Exam - Summary Physical Exam Summary: Appearance: Well-appearing, Well-nourished, lying in bed comfortably Skin: Warm, dry, no obvious rash Eyes: sclera anicteric, no conjunctival pallor ENT: mucous membranes moist, pharynx appears normal Neck: Supple, nontender Respiratory: Clear to auscultation, no signs of respiratory distress Cardiovascular: Normal S1, S2. No murmurs. Normal distal pulses in tibial and radial bilaterally. Abdomen: Soft, nontender, normal active bowel sounds present Musculoskeletal: Normal, Strength/ROM Intact, Motor function in all 4 extremities is normal and symmetric. There is no rigidity or tremor noted. Neurological: A&Ox3, awake and alert, mentation is normal, speech is fluent and appropriate, Level of consciousness nml. The patient is alert and oriented. Cranial nerves are grossly intact. Gaze is conjugate and without nystagmus. Peripheral vision is intact to confrontation. There are no gross sensory abnormalities to light touch. There is no truncal or fine motor ataxia. Gait is normal. Psychiatric: affect is normal, does not appear anxious or depressed GCS: 15 NIH: 0 Triage Information Reviewed: Yes Vital Signs On Initial Exam: Initial Vitals Temp Pulse Resp BP Pulse Ox 98.6 F 88 15 123/73 95 02/10/19 23:38 02/10/19 23:38 02/10/19 23:38 02/10/19 23:38 02/10/19 23:38 Vital Signs Reviewed: Yes - Jasmeet Coma Scale Best Eye Response: 4 - Spontaneous Best Motor Response: 6 - Obeys Commands Best Verbal Response: 5 - Oriented Coma Scale Total: 15 Diagnostics - Laboratory Result Diagrams: 02/10/19 23:51 02/10/19 23:51 Lab Statement: Any lab studies that have been ordered have been reviewed, and results considered in the medical decision making process. - CT Brain CT Interpretation Completed By: Radiologist Summary of CT Findings: 1. No acute intracranial abnormality. ASPECT = 10. 2. Mild chronic small vessel ischemic disease. Dr. Jones has reviewed this radiology report. - EKG 2358 Cardiac Rate: NL EKG Rhythm: Sinus Rhythm ST Segment: Normal Summary of EKG Findings: NSR at 90 BPM, P waves, QRS complex, and T waves are within normal limits, T waves and intervals are normal, no ischemic changes. This is a normal EKG. NIH Scale - NIH Scale Level of Consciousness: Alert/Keenly Responsive Ask Patient the Month and His/Her Age: Both Correct Ask Pt to Open/Close Eyes and Fire Extinguisher Charger/Release Non-Paretic Hand: Both Correctly Best Gaze (Only Horizontal Eye Movement): Normal Visual Field Testing: No Visual Loss Facial Paresis-Pt to Smile & Close Eyes or Grimace Symmetry: Normal/Symmetrical Motor Function - Right Arm: No Drift-Holds 10 Seconds Motor Function - Left Arm: No Drift-Holds 10 Seconds Motor Function - Right Leg: No Drift-Holds 10 Seconds Motor Function - Left Leg: No Drift-Holds 10 Seconds Limb Ataxia-Must be out of Proportion to Weakness Present: Absent Sensory (Use Pinprick to Test Arms/Legs/Trunk/Face): Normal Best Language (Describe Picture, Name Items): No Aphasia Dysarthria (Read Several Words): Normal Extinction and Inattention: No Abnormality Total Score: 0 Re-Evaluation - Re-Evaluation First Eval Re-Evaluation Time: 00:11 Comment: Discussed results with patient. Patient will be admitted to [facility] [place] for TIA work-up with diagnosis of TIA. Patient understands and agrees with this plan. Course/Dx - Course Course Of Treatment: This patient is a 64 year old M brought to ED via EMS with a chief complaint of right facial droop since 2244. Code Juwan called 2325. EMS arrives 2334. Dr. Jones at bedside at 2334. Patient sent immediately to CT. Brain CT revealed: 1. No acute intracranial abnormality. ASPECT = 10. 2. Mild chronic small vessel ischemic disease. EKG revealed: NSR at 90 BPM, P waves, QRS complex, and T waves are within normal limits, T waves and intervals are normal, no ischemic changes. This is a normal EKG. In the ED course, patient received Aspirin and fluids. Blood work obtained. Discussed patient case with Dr. Abarn Correa, neurologist at [facility], who recommended the patient stay at [facility] [place] for TIA workup. Discussed patient case with Dr. Melissa Reno, hospitalist, who accepted the patient for admission. Therefore, patient will be admitted to [facility] [place] with dx of TIA. Patient understands and agrees with this plan. - Diagnoses Provider Diagnoses: TIA (transient ischemic attack) During the Visit The Following Alert/Code Occurred: Code Reyes - Odilia Reyes called 2325. EMS arrives 2334. Dr. oJnes at bedside at 2334. - Physician Notifications Discussed Care Of Patient With: Abran Correa Time Discussed With Above Provider: 00:05 Instructed by Provider To: Other - Discussed patient case with Dr. Abran Correa, neurologist at [facility], who recommended the patient stay at [facility] [place] for TIA workup. At 0009, discussed patient case with Dr. Melissa Reno, hospitalist, who accepted the patient for admission. Discharge - Sign-Out/Discharge Documenting (check all that apply): Patient Departure Patient Received Moderate/Deep Sedation with Procedure: No - Discharge Plan Condition: Stable Disposition: ADMITTED TO [facility] - Billing Disposition and Condition Condition: STABLE Disposition: Admitted to [facility] - Attestation Statements Document Initiated by Scribe: Yes Documenting Scribe: Oziel Carvalho Provider For Whom Scribe is Documenting (Include Credential): Cash Jones MD Scribe Attestation: Oziel Irby, scribed for Cash Jones MD on 02/11/19 at 0419. Scribe Documentation Reviewed: Yes Provider Attestation: The documentation as recorded by the scribe, Oziel Carvalho accurately reflects the service I personally performed and the decisions made by me, Cash Jones MD Status of Scribe Document: Viewed
[2019-02-10 23:58] LABS: ABS Eosinophils 0.1 10^3/ul (0-0.6); ABS Lymphocytes 1.2 10^3/ul (1.0-4.8); ABS Monocytes 0.4 10^3/ul (0-0.8); ABS Neutrophils 2.6 10^3/ul (1.5-7.7); Eosinophil % 1.8 %; Hematocrit 47 % (42-52); Hemoglobin 15.9 g/dL (14.0-18.0); Lymphocyte % 28.3 %; Mean Corpuscular HGB Conc 34 g/dL (31-36); Mean Corpuscular Hemoglobin 30 pg (27-31); Mean Corpuscular Volume 89 fL (80-94); Mean Platelet Volume 8.1 fL (7.4-10.4); Nucleated Red Blood Cells % 0.2; Platelet Count 196 10^3/uL (150-450); Red Blood Count 5.24 10^6 /uL (4.18-5.48); Red Cell Distribution Width 16 % (10.5-15); White Blood Count 4.3 10^3/uL (3.5-10.8)
[2019-02-11 00:06] LABS: Activated Partial Thrombo Time 53.9 seconds (26.0-38.0); INR 1.11 (0.82-1.09)
[2019-02-11] MEDS ORDERED: Aspirin TAB* 325 MG PO ONE (00:07)
[2019-02-11 00:16] LABS: Albumin 4.2 g/dL (3.2-5.2); Albumin/Globulin Ratio 1.6 (1-3); BUN/Creatinine Ratio 20.3 (8-20); Calcium 9.5 mg/dL (8.6-10.3); EGFR Non-African American 105.8 (>60); Globulin 2.6 g/dL (2-4); Potassium 3.6 mmol/L (3.5-5.0); Total Bilirubin 1.4 mg/dL (0.2-1.0); Total Protein 6.8 g/dL (6.4-8.9)
[2019-02-11] MEDS ORDERED: Ondansetron INJ* 2 MG/ML VIAL IV PRN (01:21)
[2019-02-11] MEDS ORDERED: Al Hydrox/Mg Hydrox/Simet LIQ* 30 ML UDC PO PRN (01:21)
[2019-02-11] MEDS ORDERED: Acetaminophen TAB* 325 MG PO PRN (01:21)
[2019-02-11] MEDS ORDERED: Dextrose 50% Syringe 50 ML* 25 GM/50 ML SYRINGE IV PUSH PRN (01:25)
[2019-02-11] MEDS ORDERED: Iodixanol* (CONTRAST) 320 MG/ML 100 ML SDV IV ONE (01:56)
[2019-02-11] MEDS: Tamsulosin CAP* 0.4 MG PO SCH ×2 (03:18→17:27)
[2019-02-11 03:30] LABS: Urine Appearance Cloudy; Urine Bacteria Absent (Absent); Urine Bilirubin Negative (Negative); Urine Blood Negative (Negative); Urine Color Yellow; Urine Glucose Negative (Negative); Urine Ketones Negative (Negative); Urine Nitrite Negative (Negative); Urine Protein Negative (Negative); Urine Red Blood Cell Absent (Absent); Urine Specific Gravity 1.038 (1.010-1.030); Urine Squamous Epithelial Cell Present (Absent); Urine Urobilinogen Positive (Negative); Urine White Blood Cell 3+(>20/hpf) (Absent)
[2019-02-11] MEDS: Insulin LISPRO* 1 UNITS UNIT SUBCUT SCH ×4 (03:58→18:03)
[2019-02-11] MEDS: Heparin VIAL(*) 5000 UNITS/ML VIAL (FIVE THOUSAND) SUBCUT SCH ×2 (06:00→13:11)
--- NOTE | 2019-02-11 07:04 | HP ---
CC: Meghan Mccullough MD * HISTORY AND PHYSICAL: DATE OF ADMISSION: 02/11/19 TIME OF EVALUATION: 0100 PRIMARY CARE PHYSICIAN: Meghan Mccullough MD. CHIEF COMPLAINT: Dysarthria and right-sided facial droop. HISTORY OF PRESENT ILLNESS: This is a 64-year-old male with past medical history of myotonic dystrophy type 2 and diabetes, who presented to the emergency room after an acute onset of slurred speech and right-sided facial droop noted by the around 10 p.m. last evening. They then called EMS and he was brought here for further evaluation. His symptoms started to resolve en route. Per EMS, his neurologic symptoms were waxing and waning. By the time he got here, a rasheeda fan was called and Dr. Jones felt that his symptoms were nearly back to normal with some intermittent dysarthria. He was given a full aspirin, had CT and referred to hospitalist service for further evaluation after Telestroke recommended overnight observation. Patient states the night before, he did not sleep at all. He states he usually has trouble falling asleep and never anything like this in the past. He tried to nap during the day yesterday, but was not able to sleep. He states he was very exhausted due to not sleeping at all. He denied any headache. No vision changes. No numbness or weakness. No chest pain. No shortness of breath. No nausea, vomiting, or diarrhea. No abdominal symptoms or urinary symptoms. He has difficulty ambulating at baseline due to his myotonic dystrophy and he stumbles quite often and fell outside earlier today without any significant injuries. Otherwise, remaining review systems is negative. PAST MEDICAL HISTORY: 1. Diabetes. 2. BPH. 3. Myotonic dystrophy, type 2. 4. Hyperlipidemia. 5. Depression. MEDICATIONS: 1. Metformin 1000 mg p.o. daily. 2. Zofran 8 mg p.o. daily as needed. 3. Flomax 0.8 mg daily in the evening. 4. Doxepin 300 mg daily. 5. Atorvastatin 10 mg daily. 6. Aspirin 81 mg daily. 7. Metformin 500 mg in the morning. ALLERGIES: CODEINE develops rash and itching. SOCIAL HISTORY: The patient is independent of his ADLs. He lives at home with his who is his healthcare proxy. He occasionally uses an assistive device. He quit smoking more than 10 years ago. He smoked a pack per day for a very long time. No alcohol use or illicit drug use. Code status is full code. REVIEW OF SYSTEMS: A 14-point review of systems as mentioned in the HPI, otherwise negative. FAMILY HISTORY: Mother is alive at age 92. Father of congestive heart failure at age 73. PHYSICAL EXAMINATION GENERAL: In no acute distress, resting comfortably with his at the bedside. VITAL SIGNS: Temp 98, pulse rate is 78, respiratory rate is 18, oxygen saturation is 98% on room air, blood pressure 141/93. HEENT: Head: Normocephalic. Pupils are equal and reactive. Anicteric. Oropharynx: Mucous membranes are dry. NECK: Supple. No lymphadenopathy. RESPIRATORY: Clear to auscultation. No wheezes, rhonchi or rales. CARDIAC: Regular rate and rhythm. Systolic murmur heard throughout. ABDOMEN: Soft, nontender, nondistended. EXTREMITIES: No clubbing, cyanosis, or edema. +1 DPs. NEUROLOGIC: He is alert and oriented x3. Cranial nerves II through XII are intact. Negative pronator drift. His speech intermittently does seem slightly slurred, although patient is complaining of a very dry mouth, which may be contributing to it. Per family, he is nearly back to his baseline. Upper muscle strength equal and symmetric. Lower muscle strength; has some difficulty with heel- to-victor, but he states this is not unusual for him due to his myotonic dystrophy. LABORATORY DATA: White count 4.3, hemoglobin 15.9, hematocrit 47, platelets 196. INR is 1.11. Sodium 139, potassium 3.6, chloride 104, bicarb 24, BUN 15, creatinine 0.74, glucose 156, lactic acid 2.8, bilirubin 1.4. AST 40, ALT 34. Trop is 0. LDL is 86. RADIOGRAPHIC DATA: Head CT, no acute intracranial abnormality. Mild chronic small vessel ischemic change. EKG: Shows normal sinus rhythm. Chest x-ray: Some mild prominent vasculature. ASSESSMENT: This is a 64-year-old male with past medical history of diabetes and myotonic dystrophy, who presented to the emergency room after having slurred speech and right-sided facial droop. 1. Slurred speech and right-sided facial droop, duration he states approximately 30 to 45 minutes. Patient appears nearly resolved, however, he does intermittently have some dysarthria, though he has a very dry mouth. He did not sleep the night before. He has myotonic dystrophy. This may have contributed to his presentation, though more concerning is the transient ischemic attack versus cerebrovascular accident. Plan: We will admit him to telemetry for observation, continue neuro checks q.4 hours. We will continue him on a full dose aspirin for now. We will increase his atorvastatin from 10 to 20 and monitor his liver function tests. We will check an MRI of the brain, CT of the head and neck and echocardiogram with bubble study and follow up with a neurology consultation and check a hemoglobin A1c. 2. Chronic medical problems. Continue him on his Flomax. Continue his doxepin. 3. Diabetes. Hold his metformin. Continue him on lispro sliding scale. 4. FEN. Diabetic diet. 5. DVT prophylaxis. Patient scores high risk. We will place him on heparin subcu t.i.d. 6. Code status. Full code. PATIENT TIME: Greater than 50 minutes was spent doing the history and physical , more than half the time spent in direct patient contact. [id number]/[facility] #: [id number] RUDY
[2019-02-11] MEDS ORDERED: Aspirin TAB* 325 MG PO SCH (09:00)
[2019-02-11] MEDS ORDERED: Doxepin (NF) 25 MG CAP PO SCH (09:00)
--- NOTE | 2019-02-11 09:49 | ECHO ---
*[facility]* [place] [address] Fax #: [phone] Transthoracic Echocardiogram Patient: Gela Height: 61 in / Aly Mari 154.9 cm : 1955 Weight: 227.5 lb / Study Date: 02/11/2019 103.4 kg Age: 64 BP: 145 / 74 Gender: M BMI/BSA: 43.1 kg/m^2 HR: 70 bpm / 2 m^2 *Basketball Player: * Valentina Robison [facility] *Referring Physician: * Melissa Reno *Reading Physician: * Telly Morris MD Indications: TIA. History: Risk factors: Former tobacco use. Diabetes mellitus. Hyperlipidemia. Myotonic Dystrophy type II. Conclusions Summary: 1. Left ventricle: There is mild concentric hypertrophy. Systolic function is normal. The estimated ejection fraction is 55-60%. Wall motion is normal; there are no regional wall motion abnormalities. 2. Right ventricle: Systolic function is normal. 3. Atrial septum: Bubble study was negative 4. Mitral valve: There is trace to mild regurgitation. 5. Aortic valve: There is no evidence of stenosis. 6. Tricuspid valve: There is physiologic regurgitation. 7. Pericardium, extracardiac: There is no pericardial effusion. Study data: Transthoracic echocardiogram. Procedure: Transthoracic echocardiography was performed. Image quality was good. A bubble study was performed. Images 13 and 14. Complete 2D, spectral Doppler, and color flow Doppler. Location: Bedside. Patient status: Inpatient. Patient room number: 441-1. Rhythm: Normal sinus rhythm. Findings Left ventricle: The cavity size is normal. There is mild concentric hypertrophy. Systolic function is normal. The estimated ejection fraction is 55-60%. Wall motion is normal; there are no regional wall motion abnormalities. Doppler parameters are consistent with abnormal left ventricular relaxation (grade 1 diastolic dysfunction). Right ventricle: The cavity size is at the upper limits of normal. The moderator band is in a normal position. Systolic function is normal. Left atrium: The atrium is mildly dilated. Right atrium: The atrium is mildly to moderately dilated. Atrial septum: Bubble study was negative Mitral valve: The annulus is mildly calcified. The leaflets are mildly thickened. There is no evidence of stenosis. There is trace to mild regurgitation. Aortic valve: The valve is trileaflet. The leaflets are mildly thickened. There is no evidence of stenosis. There is no significant regurgitation. Tricuspid valve: The leaflets are normal thickness. There is no evidence of stenosis. There is physiologic regurgitation. Pulmonic valve: The leaflets are normal thickness. There is no evidence of stenosis. There is trivial regurgitation. Aorta: Ascending aorta: The ascending aorta is upper normal in size. Aortic arch: The aortic arch is appears normal. The aortic root is not dilated. Pericardium: A prominent pericardial fat pad is present. There is no pericardial effusion. Pulmonary arteries: The main pulmonary artery is normal-sized. Systolic pressure can not be accurately estimated. Systemic veins: Inferior vena cava: The vessel is normal in size. The respirophasic diameter changes are in the normal range (>= 50%). Measurements Left ventricle Value Ref Aortic valve Value Ref KEILA, LAX 5.2 cm 4.2 - 5.8 Romy diam, ED 2.1 cm ---- ESD, LAX 3.5 cm 2.5 - 4.0 Peak v, S 1.6 m/sec ---- FS, LAX 33 % 25 - 43 VTI, S 29.7 cm ---- PW, ED, LAX (H) 1.1 cm 0.6 - 1.0 Mean grad, S 5.0 mm Hg ---- FS 33 % 25 - 43 Peak grad, S 10.0 mm Hg ---- PW, ED (H) 1.1 cm 0.6 - 1.0 LVOT/AV, VTI ratio 0.71 ---- E', lat romy, TDI (L) 7.9 cm/sec >=10.0 E/e', lat romy, 11 Mitral valve Value Ref TDI Peak E 0.86 m/sec ---- E', med romy, TDI (L) 6.0 cm/sec >=7.0 Peak A 1.14 m/sec -- -- E/e', med romy, 14 Decel time 201 ms ---- TDI Peak grad, D 3.0 mm Hg ---- E', avg, TDI 7.0 cm/sec Peak E/A ratio 0.8 ---- E/e', avg, TDI 12 <=14 Pulmonic valve Value Ref LVOT Value Ref Peak v, S 0.99 m/sec ---- Peak hosea, S 0.95 m/sec Peak grad, S 4.0 mm Hg ---- VTI, S 21.0 cm Mean grad, S 2 mm Hg Aortic root Value Ref Root diam 3.4 cm <4.1 Ventricular septum Value Ref IVS, ED (H) 1.1 cm 0.6 - 1.0 Ascending aorta Value Ref AAo AP diam, S 3.6 cm ---- Right ventricle Value Ref KEILA, LAX 2.7 cm Aortic arch Value Ref KEILA minor ax, A4C (H) 4.0 cm 1.9 - 3.5 Arch diam 2.4 cm ---- mid Decending aorta Value Ref Left atrium Value Ref Lora peak hosea 0.81 m/sec ---- AP dim, ES 3.50 cm 3.00 - 4.00 Inferior vena cava Value Ref ML dim, A4C 5.0 cm Diam 1.8 cm ---- SI dim, A4C 6.0 cm Vol/bsa, ES, 1-p 37 ml/m^2 12 - 37 A4C Vol/bsa, ES, A/L (H) 36 ml/m^2 16 - 34 Right atrium Value Ref SI dim, ES (H) 6.4 cm 3.4 - 5.3 ML dim, ES, A4C (H) 4.9 cm 2.6 - 4.4 SI dim, ES, A4C (H) 6.4 cm 3.4 - 5.3 Estimated RAP 3 mm Hg Legend: (L) and (H) edd values outside specified reference range. Prepared and electronically signed by Telly Morris MD 02/11/2019 09:48
--- NOTE | 2019-02-11 12:32 | CONS ---
CC: Meghan Mccullough MD * CONSULTATION REPORT: DATE OF CONSULT: 02/11/19 PRIMARY CARE PROVIDER: Meghan Mccullough MD. CURRENT LOCATION: Room 441, bed 1. REASON FOR CONSULT: Some speech difficulties and facial droop. HISTORY OF PRESENT ILLNESS: Mr. Ren is a 64-year-old gentleman with a history of type 2 myotonic dystrophy and diabetes as well as hyperlipidemia and some depression, who was diagnosed with myotonic dystrophy years ago at [facility]. He reports being in the study in the past, but has not been seen recently. He has no known history of cardiac abnormalities or cataracts. He states that he does have his heart checked regularly. He was in his usual state of health when yesterday at around 10 p.m., his noted that he had some slurred speech and right-sided facial droop which seemed to occur suddenly. He felt like it was because he had been out for 30 hours. He has a long history of sleeping issues and felt like he was very exhausted and tired, which is why he was having some speech difficulties. EMS was called and his symptoms improved by the time of his arrival he had very little symptom left, but Odilia Echeverria was called and he was started on aspirin. Telestroke recommended observation. He states that he was up for 30 hours and that that is atypical for him; typically he has some trouble falling asleep, but otherwise has been in his usual state of health. He denied any palpitations or chest pain. No shortness of breath. No vision loss. No word finding difficulties. No focal numbness, tingling, or weakness. He has had no recent illnesses, nausea, vomiting, diarrhea. He is constipated, but that is chronic for him. He has had no dysuria, frequency, or urgency. With his myotonic dystrophy, his main problem is proximal motor weakness in the legs. He has difficulty getting up from the floor; he stumbles and occasionally will fall. He fell yesterday, but no head trauma. He reports no prior history of stroke or stroke-like symptoms. No history of heart attack. He has generally been feeling pretty well. PAST MEDICAL HISTORY: As noted above and also BPH. MEDICATIONS: Medications at home include: 1. Aspirin 81 mg a day. 2. Metformin 500 mg in the morning. 3. Atorvastatin 10 mg daily. 4. Doxepin 300 mg daily. 5. Flomax 0.8 mg daily. 6. Zofran 8 mg p.o. daily. 7. Metformin 1000 mg daily. ALLERGIES: CODEINE. FAMILY HISTORY: Significant for father with myotonic dystrophy, at age 73 with congestive heart failure. Sister with myotonic dystrophy. SOCIAL HISTORY: He lives with his , who is his healthcare proxy. Will occasionally use a cane. Prior smoking, quit about 10 years ago, but smoked a pack a day for years. He denies any alcohol or drug use. He is retired. REVIEW OF SYSTEMS: Review of systems in 14-organ systems as noted above, otherwise negative. PHYSICAL EXAM: Vital Signs: He is afebrile, blood pressure has been in the 140 /70s to 90s, heart rate in the 70s, respiratory rate 12 to 18, satting 94% to 98 % on room air. General: In general, he is a well-nourished, well-developed gentleman. He is comfortable in bed, pleasant. HEENT: He is normocephalic, atraumatic. He does have some male pattern baldness. No frontal bossing. Sclerae anicteric. Mucous membranes are moist. Oropharynx is clear. Nares are patent. Neck is supple. No thyromegaly. No carotid bruits. No meningismus. Chest: Clear to auscultation bilaterally. Cardiovascular: Regular rate and rhythm without murmurs. Abdomen: Nontender, nondistended. He is obese. Extremities: No clubbing, cyanosis, or edema. Skin: Warm and dry without lesions. Neurologic: He is awake, alert,and oriented x3. His speech is fluent. There is no dysarthria. Repetition is intact. Recall of recent and remote events is intact. Vocabulary is intact. His mood is euthymic. Affect looked congruent. Cranial nerves: Pupils are equally round and reactive and reactive to light and accommodation. Extraocular muscles are intact. He has no eyelid weakness. No ptosis. No nystagmus or diplopia. Visual anderson are full to confrontation. His facial sensation is intact. He has a very mild reduction in the right nasolabial fold, but no significant changes in his smile. His hearing is intact bilaterally. Palate raises symmetrically. Tongue is midline. No fasciculations noted. Motor: His motor exam in the upper extremity is 5/5 throughout with good tone and bulk. No weakness. No fatiguing in the lower extremities. He has 4/5 hip flexor, 4+/5 hip extensor weakness, distally he has 5/5. Tone and bulk are both normal. DTRs are 1+ and symmetric at the upper extremities, 2+ at the patella, trace at the ankles, equivocal Babinski's. His neck flexor by the way is 4+. Neck extensor is 5. [id number] and rapid alternating movements are intact without tremor, dysdiadochokinesia, or dysmetria. Sensation is intact to light touch and pinprick in the upper and lower extremities. No focal deficits. Gait was not tested at this time, but he has been walking without difficulty. He does have difficulty getting up off the ground though reported. He had no percussion myotonia. He had no clasp-knife phenomenon. He has no perioral weakness. DIAGNOSTIC STUDIES/LAB DATA: CBC with differential that is essentially normal. INR 1.11, PTT of 53.9. Complete metabolic profile with glucose of 166, lactic acid of 2.8. Total bilirubin 1.40. AST 40. Triglycerides 192. Cholesterol 166, LDL of 86. HDL of 42. Urine with positive urobilinogen, 1+ leukocyte esterase, 3+ white blood cells, squamous cells present. Negative glucose, absent bacteria. Studies done: 1. CT angiogram of the head and neck: Impression: Mildly stenotic bilateral internal carotid arteries, otherwise normal head CTA, and the neck mildly stenotic left internal carotid artery, mildly stenotic left vertebral artery, atherosclerotic nonstenotic bilateral common, right internal carotid and right vertebral arteries. Left internal carotid artery at 31%. He had a CT of the head done, which showed no acute abnormalities, aspect equal to 10, mild chronic small vessel ischemic changes noted. 2. Chest x-ray, patchy bibasilar linear atelectasis or cyst consolidation. 3. Electrocardiogram, sinus rhythm. ASSESSMENT AND PLAN: Mr. Ren is a 64-year-old gentleman with a history of hyperlipidemia, diabetes, myotonic dystrophy type 2, who presents to the hospital with history of right facial droop and some slurred speech lasting approximately an hour, starting at 10 p.m. last night. Odilia Echeverria was called, but by that time his symptoms had largely resolved. It was recommended that he come into the hospital, continue his aspirin, and be observed. MRI of the brain is pending. Echocardiogram is pending. 1. At this point, certainly transient ischemic attack is high on the differential. The plan is to continue his work, get the MRI of the brain, get the echocardiogram. I would recommend starting Plavix along with his aspirin and treating him 30 days with dual antiplatelet. I would increase his statin for a goal LDL less than 70 at this point given his risk factors. Since his symptoms have resolved, I would strive for moderate to good control of his blood pressure at this point. Continue tight diabetes control and adjust as an outpatient accordingly and he is a nonsmoker. 2. Myotonic dystrophy. He has type II myotonic dystrophy, which is slightly different presentation than type I. It tends to present later in life and it tends to involve the proximal muscles more than the facial muscles, but as with the myotonic dystrophy type I, it can be associated with a number of problems including cardiac abnormalities, cataracts, progressive weakness, endocrinologic issues among other things. Most important to today's presentation would be his cardiac function. The plan is to get an echocardiogram to look for any evidence of cardiomyopathy or enlargement, which could predispose to stroke. Also, continue to monitor him on telemetry to look for any evidence of arrhythmia. Myotonic dystrophy can be associated with conduction abnormalities. 3. We would likely want to consider an outpatient 30-day monitor to rule out any underlying atrial fibrillation, which could micro[employer] exchange administrator given his risk with myotonic dystrophy. 4. He will need regular eye exams for cataracts. 5. I would like to see him as an outpatient to continue following him. Myotonic dystrophy tends to be a progressive disease requiring supportive care. We may want to work with physical therapy as an outpatient, work with assisted devices to prevent falling. He is not currently having any respiratory issues, but this is something that needs to be followed as well. He is not complaining of any muscle pain and has no strong evidence for myotonia. 6. skilled nursing, I would recommend following his endocrinologic status, specifically watch for any evidence of primary hypogonadism and insulin hypersecretion can be associated with myotonic dystrophy. 7. Gastrointestinal. He has a history of constipation, which he is not managing, but something that needs to be watched. No strong evidence for cognitive impairment. Changes can be seen on MRI associated with myotonic dystrophy. Again, treatment is largely supportive. I will continue to follow him closely. If his MRI of the brain is negative and he is back to normal, his echocardiogram is normal, I think he can be discharged home on aspirin and Plavix for 30 days with close followup. I would like to see him in my clinic as well. I will continue to follow him and make further recommendations as necessary. Thank you for the opportunity to participate in the care of this very interesting patient. [id number]/[facility] #: [id number] RUDY
[2019-02-11 16:51] VITALS: BP 120/65
[2019-02-11] MEDS ORDERED: Clopidogrel TAB* 75 MG PO SCH (17:00)
[2019-02-11] MEDS ORDERED: Atorvastatin* 20 MG TAB PO SCH (18:00)
--- NOTE | 2019-02-12 02:35 | DS ---
CC: Dr. Abdul; Dr. Meghan Mccullough * DISCHARGE SUMMARY: DATE OF ADMISSION: 02/11/19 at 1:00 a.m. DATE OF DISCHARGE: 02/11/19 ATTENDING PHYSICIAN: Dr. Kathryn Turner * (dictated by JAVIER Thomas). CONSULTING NEUROLOGIST: Dr. Abdul. PRIMARY CARE PROVIDER: Dr. Meghan Mccullough. PRIMARY DIAGNOSIS: Transient ischemic attack. SECONDARY DIAGNOSES: 1. Diabetes mellitus type 2. 2. Benign prostatic hypertrophy. 3. Myotonic dystrophy type 2. 4. Hyperlipidemia. 5. Depression. STUDIES WHILE INPATIENT: A brain MRI on 02/11/19, impression: 1. Scattered foci of elevated T2/FLAIR signal, periventricular, and deep cortical white matter, nonspecific which could suggest a chronic small vessel ischemic change with progression compared to 2007. 2. No restricted diffusion to suggest acute infarct. A transthoracic echocardiogram on 02/11/19, summary: left ventricle: There is mild concentric hypertrophy. Systolic function is normal. His estimated ejection fraction is 55% to 60%. Wall motion is normal. There are no regional wall motion abnormalities. Bubble study negative. Please see report for further details. CT angiogram of the head and neck, mildly stenotic left internal carotid artery , mildly stenotic left vertebral artery, atherosclerotic nonstenotic bilateral common, right internal carotid, and right vertebral arteries. Mild emphysema. Mildly stenotic bilateral internal carotid arteries. Otherwise , normal head CTA. Mild chronic small vessel ischemic disease. IMAGING: EKG on 02/10/19, normal sinus rhythm, 90 beats per minute, normal axis , no ST depressions or elevations, no T-wave changes. Brain CT on 02/10/19; 1. No acute intracranial abnormality. 2. Mild chronic small vessel ischemic disease. LABORATORY DATA: Nonfasting lipid panel, triglycerides 92, cholesterol 166, LDL cholesterol 86, HDL cholesterol 42, hemoglobin A1c 6.8. DISCHARGE MEDICATIONS: 1. Plavix 75 mg p.o. daily x30 days. 2. Atorvastatin 20 mg p.o. daily. Continued home medications: 1. Metformin 1000 mg p.o. q.p.m. 2. Metformin 500 mg p.o. q.a.m. 3. Zofran 4 mg p.o. q.6 hours p.r.n. nausea or vomiting. 4. Flomax 0.8 mg p.o. q.p.m. 5. Doxepin 300 mg p.o. q.p.m. 6. Aspirin 81 mg p.o. q.p.m. HISTORY OF PRESENT ILLNESS/HOSPITAL COURSE: Aly Ren is a 64-year-old white male with past medical history significant for diabetes, myotonic dystrophy, hyperlipidemia, BPH, who presented to the emergency department on the evening of 02/11/19 because he noticed slurred speech and his noticed a right facial droop. His symptoms started to resolve en route to the hospital. He was admitted overnight for observation. He was monitored on telemetry and found to be without any arrhythmias. EKG was normal. Transthoracic echocardiogram and a brain MRI were normal. CT angiogram of head and neck demonstrated mild stenosis, but without need for intervention. Neurology saw the patient and considered the possibility that his symptoms may have been related to being without sleep for long period of time; however, given his risk factors and the symptomatology considered this to be a TIA. When the patient was in the hospital, he was given 325 mg of aspirin when he arrived. During his hospitalization, his home medications were continued for treatment of his BPH with Flomax and doxepin; for his diabetes, his home metformin was held and he was given lispro sliding scale and his home dose of 10 mg atorvastatin was continued. On day of discharge, the patient is feeling well. He felt the symptom has resolved. He felt better especially after sleeping in the hospital today. He denies weakness, change in sensation, difficulty ambulating, chest pain, difficulty breathing or palpitations. REVIEW OF SYSTEMS: An 11-point review of systems was completed and all pertinent positives and negatives are above in the HPI. All other systems are negative. PHYSICAL EXAMINATION: General: Obese, white male, upright in hospital bed, appearing in no acute distress, mother at bedside. Head: Normocephalic, atraumatic. Eyes: PERRL. Sclerae anicteric. EOMI. ENT: Mucous membranes moist. Cardio: Regular rate and rhythm without murmurs, rubs or gallops. Lungs: Lungs are clear to auscultation throughout. Abdomen: Normoactive bowel sounds x4 quadrants. The abdomen is soft, nontender, nondistended. Extremities : No clubbing, cyanosis or edema. Neuro: The patient is alert and oriented x3. Strength is 5/5 in all extremities. No focal deficits. Speech is non- slurred. Skin: Skin is warm, dry, and intact. DISCHARGE PLAN: Diet: Carbohydrate consistent diet. Activity: The patient may return to normal activity. The patient was advised to take Plavix for 30 days in addition to baby aspirin daily and then after 30 days to continue just taking baby aspirin daily. His statin is increased to 20 mg daily. Neurology recommends tight control of LDL less than 70. The patient is advised to follow up with his primary care provider at this time. Primary care provider should set up outpatient 30-day cardiac event monitoring. Per recommendation of neurologist, Dr. Abdul, the patient is also advised that he should follow up with Dr. Abdul's office in 4 to 6 weeks. The patient was advised to return to the emergency department should he experience sudden weakness, change in sensation, facial droop, slurring of sleep and confusion, difficulty ambulating. The patient is advised to return to the emergency department if he experiences blood in his stool. The patient is instructed to return to his home mediation of metformin for treatment of his diabetes. The patient is to continue to his home mediation treatment for his BPH with doxepin and tamsulosin. CONDITION ON DISCHARGE: Stable. DISPOSITION: Home. TIME SPENT: Approximately 45 minutes was spent on this discharge, approximately half of this time was spent at bedside. JAVIER THOMAS [id number]/[facility] #: [id number] RUDY
== END 2019-02-11 18:11 | disposition home or self-care (01) ==
LOC: ED 23:34 → MEDTELE 02-11 01:21
PROVIDERS: ADMIT Pediatrics; ATTEND Hospitalist
DX: G45.9 Transient cerebral ischemic attack, unspecified (principal); E11.9 Type 2 diabetes mellitus without complications; N40.0 Benign prostatic hyperplasia without lower urinary tract symptoms; G71.11 Myotonic muscular dystrophy; E78.5 Hyperlipidemia, unspecified; F32.9 Major depressive disorder, single episode, unspecified; Z79.82 Long term (current) use of aspirin; Z88.6 Allergy status to analgesic agent; Z87.891 Personal history of nicotine dependence; Z87.442 Personal history of urinary calculi
CPT/HCPCS: 36415; 70450; 70496; 70498; 70551; 71045; 80053; 80061; 81003; 81015; 83036; 83605; 84484; 85025; 85610; 85730; 87077; 87086; 87186; 93005; 93306; 96372; 99285; A9270-GY; G0378; G8978-GP-CJ; G8979-GP-CI; J1644; Q9967

== ENCOUNTER 2021-05-04 15:46 | Observation (INO) ==
[2021-05-04] MEDS ORDERED: Lactated Ringers 1000 ml BAG 1,000 ML IV ONE (16:17)
[2021-05-04 16:41] LABS: ABS Eosinophils 0.1 10^3/ul (0-0.6); ABS Lymphocytes 0.5 10^3/ul (1.0-4.8); ABS Monocytes 0.4 10^3/ul (0-0.8); ABS Neutrophils 5.1 10^3/ul (1.5-7.7); Hematocrit 44 % (42-52); Hemoglobin 15.2 g/dL (14.0-18.0); Lymphocyte % 7.8 %; Mean Corpuscular HGB Conc 35 g/dL (31-36); Mean Corpuscular Hemoglobin 30 pg (27-31); Mean Corpuscular Volume 87 fL (80-94); Mean Platelet Volume 7.8 fL (7.4-10.4); Nucleated Red Blood Cells % 0.2; Platelet Count 180 10^3/uL (150-450); Red Blood Count 5.04 10^6 /uL (4.18-5.48); Red Cell Distribution Width 16 % (10-15); White Blood Count 6.1 10^3/uL (3.5-10.8)
[2021-05-04 17:07] LABS: Albumin 4.2 g/dL (3.2-5.2); Albumin/Globulin Ratio 1.5 (1-3); Calcium 9.7 mg/dL (8.6-10.3); EGFR African American 113.1 (>60); EGFR Non-African American 93.4 (>60); Globulin 2.8 g/dL (2-4); Potassium 4.2 mmol/L (3.5-5.0); Total Bilirubin 1.8 mg/dL (0.2-1.0)
[2021-05-04] MEDS ORDERED: Azithromycin 500 mg/250 ml NS 500 MG/250 ML BAG IVPB ONE (18:45)
[2021-05-04] MEDS ORDERED: cefTRIAXone 1 gm/50 mL NS BAG 1 GM/50 ML BAG IVPB ONE (18:46)
[2021-05-04 20:22] LABS: C Reactive Protein 22.33 mg/L (<8.01)
[2021-05-04 20:42] LABS: Ferritin 169.5 ng/mL (24-336)
[2021-05-05] MEDS: Enoxaparin 40 MG/0.4 ML SYR SUBCUT SCH ×2 (00:38→21:00)
[2021-05-05] MEDS: metroNIDAZOLE IV 500 MG/100ML 500 MG/100 ML BAG IVPB SCH ×2 (00:45→05:50)
[2021-05-05] MEDS ORDERED: Dextrose 50% Syringe 50 ml 25 GM/50 ML SYRINGE IV PUSH PRN (00:45)
[2021-05-05 01:20] LABS: Influenza A Molecular Negative (Negative); Influenza B Molecular Negative (Negative)
[2021-05-05 11:52] LABS: Urine Appearance Cloudy; Urine Color Yellow; Urine Specific Gravity 1.016 (1.002-1.030)
[2021-05-05 11:53] LABS: Urine Ketones Negative (Negative); Urine Urobilinogen Positive (Negative)
[2021-05-05 11:54] LABS: Urine Bacteria 2+ (Absent); Urine Bilirubin Negative (Negative); Urine Granular Casts Present (Absent); Urine Red Blood Cell Absent (Absent); Urine Squamous Epithelial Cell Present (Absent); Urine Transitional Epithelial Present (Absent); Urine White Blood Cell 3+(>20/hpf) (Absent)
[2021-05-05 11:55] LABS: * 0 (Negative); Urine Blood Negative (Negative); Urine Glucose Negative (Negative); Urine Nitrite 0 (Negative); Urine Protein Negative (Negative)
[2021-05-05] MEDS ORDERED: Lidocaine 4% GEL 10 GM TUBE TOPICAL PRN (12:55)
[2021-05-05 18:06] LABS: Urine Appearance Clear; Urine Bilirubin Negative (Negative); Urine Blood Negative (Negative); Urine Color Yellow; Urine Glucose Negative (Negative); Urine Ketones Negative (Negative); Urine Nitrite Negative (Negative); Urine Protein Negative (Negative); Urine Specific Gravity 1.014 (1.002-1.030); Urine Urobilinogen Positive (Negative)
[2021-05-05 18:11] LABS: Urine Bacteria Absent (Absent); Urine Red Blood Cell Trace(0-2/hpf) (Absent); Urine White Blood Cell 2+(11-20/hpf) (Absent)
[2021-05-05] MEDS ORDERED: DOXEPIN 100 MG PO SCH (21:00)
[2021-05-05] MEDS ORDERED: DOXEPIN 150 MG PO SCH (21:00)
[2021-05-05] MEDS ORDERED: cefTRIAXone 1 gm/50 mL NS BAG 1 GM/50 ML BAG IVPB SCH (21:00)
[2021-05-05] MEDS ORDERED: Azithromycin 500 mg/250 ml NS 500 MG/250 ML BAG IVPB SCH (21:30)
[2021-05-06 05:49] LABS: ABS Eosinophils 0.1 10^3/ul (0-0.6); ABS Lymphocytes 0.8 10^3/ul (1.0-4.8); ABS Monocytes 0.3 10^3/ul (0-0.8); ABS Neutrophils 1.5 10^3/ul (1.5-7.7); Eosinophil % 2.9 %; Hematocrit 42 % (42-52); Hemoglobin 14.2 g/dL (14.0-18.0); Lymphocyte % 29.9 %; Mean Corpuscular HGB Conc 34 g/dL (31-36); Mean Corpuscular Hemoglobin 30 pg (27-31); Mean Corpuscular Volume 88 fL (80-94); Mean Platelet Volume 7.6 fL (7.4-10.4); Nucleated Red Blood Cells % 0.4; Platelet Count 149 10^3/uL (150-450); Red Blood Count 4.77 10^6 /uL (4.18-5.48); Red Cell Distribution Width 16 % (10-15); White Blood Count 2.7 10^3/uL (3.5-10.8)
[2021-05-06 06:19] LABS: Calcium 8.7 mg/dL (8.6-10.3); EGFR African American 191.2 (>60); Magnesium 1.9 mg/dL (1.9-2.7); Phosphorus 4.3 mg/dL (2.5-5.0); Potassium 4.2 mmol/L (3.5-5.0)
[2021-05-06 11:55] VITALS: BP 135/71
== END 2021-05-06 14:55 | disposition home or self-care (01) ==
LOC: ED 15:46 → MED 15:46 → SUATTDRO 21:15
PROVIDERS: ADMIT Internal Medicine; ATTEND Internal Medicine

== ENCOUNTER 2021-11-13 12:54 | Inpatient (IN) ==
[2021-11-13 14:52] LABS: ABS Eosinophils 0.1 10^3/ul (0-0.6); ABS Lymphocytes 0.6 10^3/ul (1.0-4.8); ABS Monocytes 0.3 10^3/ul (0-0.8); ABS Neutrophils 2.5 10^3/ul (1.5-7.7); Eosinophil % 3.5 %; Hematocrit 40 % (42-52); Hemoglobin 13.9 g/dL (14.0-18.0); Lymphocyte % 17.4 %; Mean Corpuscular HGB Conc 35 g/dL (31-36); Mean Corpuscular Hemoglobin 30 pg (27-31); Mean Corpuscular Volume 86 fL (80-94); Mean Platelet Volume 7.6 fL (7.4-10.4); Platelet Count 177 10^3/uL (150-450); Red Blood Count 4.66 10^6 /uL (4.18-5.48); Red Cell Distribution Width 16 % (10-15); White Blood Count 3.6 10^3/uL (3.5-10.8)
[2021-11-13 15:23] LABS: Albumin 3.9 g/dL (3.2-5.2); Albumin/Globulin Ratio 2.1 (1-3); Calcium 9.5 mg/dL (8.6-10.3); Globulin 1.9 g/dL (2-4); Magnesium 1.9 mg/dL (1.9-2.7); Potassium 4.1 mmol/L (3.5-5.0); Total Bilirubin 1.5 mg/dL (0.2-1.0); Total Protein 5.8 g/dL (6.4-8.9); eGFR CKD-EPI 106.8 (>60)
[2021-11-13 16:45] LABS: Urine Appearance Cloudy; Urine Bilirubin Negative (Negative); Urine Blood Negative (Negative); Urine Color Amber; Urine Glucose Negative (Negative); Urine Ketones Negative (Negative); Urine Nitrite Negative (Negative); Urine Protein Negative (Negative); Urine Specific Gravity 1.019 (1.002-1.030); Urine Urobilinogen Positive (Negative)
[2021-11-13 16:54] LABS: Urine Bacteria 1+ (Absent); Urine Red Blood Cell 1+(3-5/hpf) (Absent); Urine White Blood Cell 3+(>20/hpf) (Absent)
[2021-11-13] MEDS ORDERED: Ondansetron 4 mg VIAL 2 MG/ML 2 ml VIAL IV PRN (17:05)
[2021-11-13] MEDS ORDERED: Dextrose 50% Syringe 50 ml 25 GM/50 ML SYRINGE IV PUSH PRN (17:14)
[2021-11-13] MEDS: oxyCODONE/Acetamin 5/325 mg TAB PO PRN (18:22)
[2021-11-13] MEDS ORDERED: Heparin 5000 UNITS/ML 1 mL VIAL SUBCUT SCH (22:00)
[2021-11-13] MEDS ORDERED: NS 0.9% 1000 ml BAG 1,000 ML IV SCH (23:00)
[2021-11-14 05:48] LABS: ABS Eosinophils 0.1 10^3/ul (0-0.6); ABS Lymphocytes 0.7 10^3/ul (1.0-4.8); ABS Monocytes 0.2 10^3/ul (0-0.8); ABS Neutrophils 1.4 10^3/ul (1.5-7.7); Eosinophil % 4.5 %; Hematocrit 38 % (42-52); Hemoglobin 13.3 g/dL (14.0-18.0); Lymphocyte % 28.8 %; Mean Corpuscular HGB Conc 35 g/dL (31-36); Mean Corpuscular Hemoglobin 30 pg (27-31); Mean Corpuscular Volume 86 fL (80-94); Mean Platelet Volume 7.6 fL (7.4-10.4); Nucleated Red Blood Cells % 0.4; Platelet Count 158 10^3/uL (150-450); Red Blood Count 4.47 10^6 /uL (4.18-5.48); Red Cell Distribution Width 16 % (10-15); White Blood Count 2.5 10^3/uL (3.5-10.8)
[2021-11-14 05:56] LABS: INR 1.19 (0.86-1.15)
[2021-11-14 06:47] LABS: Calcium 8.8 mg/dL (8.6-10.3); Potassium 4.2 mmol/L (3.5-5.0)
[2021-11-14 06:53] LABS: eGFR CKD-EPI 107.9 (>60)
[2021-11-14] MEDS ORDERED: ceFAZolin 2 GM PREMIX 2 GM/50 ML BAG ONE (08:35)
[2021-11-14] MEDS ORDERED: Famotidine IV 10 MG/ML 2 ml VIAL (20 mg) ONE (08:36)
[2021-11-14] MEDS ORDERED: fentaNYL 100 mcg/2 ml 50 MCG/ML VIAL ONE ×3 (08:56→10:00)
[2021-11-14] MEDS ORDERED: Propofol 10 MG/ML 20 ML BTL ONE (08:57)
[2021-11-14] MEDS ORDERED: Lidocaine 2% PF 5 ML VIAL ONE (08:57)
[2021-11-14] MEDS ORDERED: Rocuronium 50 mg VIAL 10 mg/ml 5 ml VIAL (50 mg) ONE (09:08)
[2021-11-14] MEDS ORDERED: Phenylephrine 40 mcg/mL 10mL (400mcg) SYRINGE ONE (09:21)
[2021-11-14] MEDS ORDERED: Bupivacaine 0.5% W/EPI SDV 10 ML VIAL INJ ONE (09:28)
[2021-11-14] MEDS ORDERED: Lidocaine 1% w EPI 1:100,000 MDV 20 ML VIAL ONE (09:28)
[2021-11-14] MEDS ORDERED: EPHEDrine (Pressors) 50 MG/ML VIAL ONE (09:29)
[2021-11-14] MEDS ORDERED: fentaNYL 100 mcg/2 ml 50 MCG/ML VIAL IV PRN (09:43)
[2021-11-14] MEDS ORDERED: Morphine 4 MG/ML VIAL (1 ml) IV PRN (09:43)
[2021-11-14] MEDS ORDERED: Acetaminophen IV 1 GM/100ML 100 ML IV ONE (09:43)
[2021-11-14] MEDS ORDERED: Naloxone 0.4 mg VIAL 0.4 mg/ml 1 ml VIAL IV PRN (09:43)
[2021-11-14] MEDS ORDERED: Prochlorperazine 5 mg/ml 2 ml VIAL (10 mg) IV PRN (09:43)
[2021-11-14] MEDS ORDERED: Ondansetron 4 mg VIAL 2 MG/ML 2 ml VIAL ONE (10:15)
[2021-11-14] MEDS ORDERED: NS 0.9% 1,000 ML IV SCH (13:15)
[2021-11-14] MEDS: oxyCODONE/Acetamin 5/325 mg TAB PO PRN (17:16)
[2021-11-14] MEDS: ceFAZolin 1 GM ADVAN 1 GM in NS 0.9% 50 ML 50 ML IVPB SCH (17:47)
[2021-11-15] MEDS: ceFAZolin 1 GM ADVAN 1 GM in NS 0.9% 50 ML 50 ML IVPB SCH ×2 (01:10→09:03)
[2021-11-15] MEDS: oxyCODONE/Acetamin 5/325 mg TAB PO PRN ×3 (01:19→16:51)
[2021-11-15 06:00] LABS: ABS Eosinophils 0.1 10^3/ul (0-0.6); ABS Lymphocytes 0.5 10^3/ul (1.0-4.8); ABS Monocytes 0.3 10^3/ul (0-0.8); ABS Neutrophils 2.4 10^3/ul (1.5-7.7); Eosinophil % 3.9 %; Hematocrit 36 % (42-52); Hemoglobin 12.5 g/dL (14.0-18.0); Lymphocyte % 15.8 %; Mean Corpuscular HGB Conc 35 g/dL (31-36); Mean Corpuscular Hemoglobin 30 pg (27-31); Mean Corpuscular Volume 86 fL (80-94); Mean Platelet Volume 7.8 fL (7.4-10.4); Nucleated Red Blood Cells % 0.4; Platelet Count 157 10^3/uL (150-450); Red Blood Count 4.23 10^6 /uL (4.18-5.48); Red Cell Distribution Width 16 % (10-15); White Blood Count 3.3 10^3/uL (3.5-10.8)
[2021-11-15 06:13] LABS: Calcium 8.6 mg/dL (8.6-10.3); Potassium 4.2 mmol/L (3.5-5.0); eGFR CKD-EPI 109.2 (>60)
[2021-11-15] MEDS ORDERED: Senna TAB 8.6 mg TAB PO PRN (10:56)
[2021-11-15] MEDS ORDERED: Polyethylene Glycol 3350 17 GM PACKET PO PRN (10:56)
[2021-11-15] MEDS ORDERED: Nicotine GUM 2MG FRUIT FLAVOR PO PRN (16:58)
[2021-11-15] MEDS: Nicotine PATCH 14 MG/24 HR PATCH TRANSDERM SCH (17:41)
[2021-11-16] MEDS: oxyCODONE/Acetamin 5/325 mg TAB PO PRN ×3 (00:24→20:53)
[2021-11-16] MEDS: Nicotine PATCH 14 MG/24 HR PATCH TRANSDERM SCH (08:55)
[2021-11-16 13:15] LABS: Hematocrit 38 % (42-52); Mean Platelet Volume 8.1 fL (7.4-10.4); Platelet Count 183 10^3/uL (150-450)
[2021-11-16 13:36] LABS: Calcium 9.3 mg/dL (8.6-10.3); Potassium 4.1 mmol/L (3.5-5.0); eGFR CKD-EPI 106.2 (>60)
[2021-11-16] MEDS ORDERED: Nicotine Lozenge mini 4 MG LOZNG.MINI MT PRN (18:57)
[2021-11-17 05:31] LABS: ABS Eosinophils 0.1 10^3/ul (0-0.6); ABS Lymphocytes 0.8 10^3/ul (1.0-4.8); ABS Monocytes 0.4 10^3/ul (0-0.8); ABS Neutrophils 2.1 10^3/ul (1.5-7.7); Eosinophil % 3.5 %; Hematocrit 35 % (42-52); Hemoglobin 12.5 g/dL (14.0-18.0); Lymphocyte % 23.4 %; Mean Corpuscular HGB Conc 36 g/dL (31-36); Mean Corpuscular Hemoglobin 30 pg (27-31); Mean Corpuscular Volume 86 fL (80-94); Mean Platelet Volume 7.3 fL (7.4-10.4); Platelet Count 160 10^3/uL (150-450); Red Cell Distribution Width 16 % (10-15); White Blood Count 3.4 10^3/uL (3.5-10.8)
[2021-11-17 06:24] LABS: Calcium 8.8 mg/dL (8.6-10.3); Potassium 4.3 mmol/L (3.5-5.0); eGFR CKD-EPI 111.1 (>60)
[2021-11-17] MEDS: Nicotine PATCH 14 MG/24 HR PATCH TRANSDERM SCH (08:07)
[2021-11-17] MEDS ORDERED: Magnesium Hydroxide LIQ 30 ML UDC PO PRN (08:09)
[2021-11-17] MEDS: Magnesium Hydroxide LIQ 30 ML UDC PO SCH ×2 (10:16→20:43)
[2021-11-17] MEDS: oxyCODONE/Acetamin 5/325 mg TAB PO PRN (23:58)
[2021-11-18 05:57] LABS: Hematocrit 36 % (42-52); Hemoglobin 12.3 g/dL (14.0-18.0); Mean Corpuscular HGB Conc 35 g/dL (31-36); Mean Corpuscular Hemoglobin 29 pg (27-31); Mean Corpuscular Volume 85 fL (80-94); Mean Platelet Volume 7.8 fL (7.4-10.4); Platelet Count 177 10^3/uL (150-450); Red Blood Count 4.19 10^6 /uL (4.18-5.48); Red Cell Distribution Width 16 % (10-15); White Blood Count 2.9 10^3/uL (3.5-10.8)
[2021-11-18 06:16] LABS: Calcium 8.9 mg/dL (8.6-10.3); Potassium 4.4 mmol/L (3.5-5.0); eGFR CKD-EPI 109.8 (>60)
[2021-11-18] MEDS: Magnesium Hydroxide LIQ 30 ML UDC PO SCH (09:04)
[2021-11-18] MEDS: Nicotine PATCH 14 MG/24 HR PATCH TRANSDERM SCH (09:27)
[2021-11-18 11:10] VITALS: BP 108/67
== END 2021-11-18 16:15 | DRG 481 ==
LOC: ED 12:54 → SUATTDRO 17:38 → EDHOLD 17:38 → SSU 20:36
PROVIDERS: ADMIT Nurse Practitioner Family; ATTEND Internal Medicine

== ENCOUNTER 2021-11-18 15:56 | Inpatient (IN) ==
[2021-11-18] MEDS ORDERED: Magnesium Hydroxide LIQ 30 ML UDC PO PRN (16:56)
[2021-11-18] MEDS ORDERED: Dextrose 50% Syringe 50 ml 25 GM/50 ML SYRINGE IV PUSH PRN (17:04)
[2021-11-18] MEDS: Aspirin EC 325 mg TAB.EC PO SCH (20:48)
[2021-11-18] MEDS: Senna TAB 8.6 mg TAB PO PRN (20:48)
[2021-11-18] MEDS: oxyCODONE/Acetamin 5/325 mg TAB PO PRN (23:34)
[2021-11-19 07:12] LABS: ABS Eosinophils 0.1 10^3/ul (0-0.6); ABS Lymphocytes 0.8 10^3/ul (1.0-4.8); ABS Monocytes 0.3 10^3/ul (0-0.8); Hematocrit 36 % (42-52); Hemoglobin 12.4 g/dL (14.0-18.0); Mean Corpuscular HGB Conc 35 g/dL (31-36); Mean Corpuscular Hemoglobin 30 pg (27-31); Mean Corpuscular Volume 86 fL (80-94); Mean Platelet Volume 7.7 fL (7.4-10.4); Platelet Count 166 10^3/uL (150-450); Red Blood Count 4.13 10^6 /uL (4.18-5.48); Red Cell Distribution Width 16 % (10-15); White Blood Count 3.3 10^3/uL (3.5-10.8)
[2021-11-19 07:54] LABS: Albumin 3.3 g/dL (3.2-5.2); Albumin/Globulin Ratio 1.7 (1-3); Calcium 8.6 mg/dL (8.6-10.3); Potassium 4.4 mmol/L (3.5-5.0); Total Bilirubin 0.9 mg/dL (0.2-1.0); Total Protein 5.3 g/dL (6.4-8.9); eGFR CKD-EPI 113.9 (>60)
[2021-11-19] MEDS: Aspirin EC 325 mg TAB.EC PO SCH ×2 (09:03→21:39)
[2021-11-19] MEDS: oxyCODONE/Acetamin 5/325 mg TAB PO PRN (22:33)
[2021-11-20] MEDS: Aspirin EC 325 mg TAB.EC PO SCH ×2 (10:08→21:19)
[2021-11-20] MEDS: oxyCODONE/Acetamin 5/325 mg TAB PO PRN (21:20)
[2021-11-21] MEDS: Aspirin EC 325 mg TAB.EC PO SCH ×2 (08:43→20:43)
[2021-11-21] MEDS: DOXEPIN PO SCH (20:42)
[2021-11-21] MEDS: Senna TAB 8.6 mg TAB PO PRN (20:43)
[2021-11-21] MEDS: oxyCODONE/Acetamin 5/325 mg TAB PO PRN (22:22)
[2021-11-22] MEDS: Aspirin EC 325 mg TAB.EC PO SCH ×2 (07:35→20:54)
[2021-11-22] MEDS: oxyCODONE/Acetamin 5/325 mg TAB PO PRN (20:54)
[2021-11-22] MEDS: DOXEPIN PO SCH (21:00)
[2021-11-23 04:58] VITALS: BP 130/73
[2021-11-23] MEDS: Aspirin EC 325 mg TAB.EC PO SCH (08:36)
[2021-11-23] MEDS: oxyCODONE/Acetamin 5/325 mg TAB PO PRN (13:49)
== END 2021-11-23 15:41 | disposition home health service (06) | DRG 560 ==
LOC: PMRU 16:40
PROVIDERS: ADMIT Physical Medicine & Rehabilitation; ATTEND Physical Medicine & Rehabilitation

== ENCOUNTER 2024-03-18 21:03 | Observation (INO) ==
[2024-03-18] MEDS: Morphine 4 MG/ML VIAL (1 ml) IV ONE (23:38)
[2024-03-18] MEDS: Acetaminophen IV 1 GM/100ML 1,000 MG/100 ML BAG IV ONE (23:40)
[2024-03-18 23:50] LABS: ABS Eosinophils 0.1 10^3/uL (0.0-0.5); ABS Lymphocytes 1.4 10^3/uL (1.0-4.8); ABS Monocytes 0.4 10^3/uL (0.0-1.1); ABS Neutrophils 3.6 10^3/uL (1.5-7.6); ABS Nucleated RBC 0.01 10^3/ul; Eosinophil % 1.3 %; Hematocrit 39.2 % (38-53); Hemoglobin 13.3 g/dL (13.2-16.3); Lymphocyte % 25.8 %; Mean Corpuscular Hemoglobin 29.2 pg (27-33); Mean Corpuscular Volume 85.8 fL (80-97); Mean Platelet Volume 7.8 fL (7.5-11.2); Nucleated Red Blood Cells % 0.1 %/100WBC (0.0-0.8); Platelet Count 165 10^3/uL (150-450); Red Blood Count 4.57 10^6/uL (4.06-5.63); Red Cell Distribution Width 16.5 % (12-17); White Blood Count 5.5 10^3/uL (3.6-10.2)
[2024-03-19 00:10] LABS: Albumin 4.1 g/dL (3.2-5.2); Albumin/Globulin Ratio 1.6 (1-3); Calcium 9.7 mg/dL (8.6-10.3); Creatinine, Serum 0.53 mg/dL (0.67-1.17); Globulin 2.5 g/dL (2-4); Potassium 3.8 mmol/L (3.5-5.0); Total Bilirubin 1.3 mg/dL (0.2-1.0); Total Protein 6.6 g/dL (6.4-8.9); eGFR CKD-EPI 107.1 (>60)
[2024-03-19] MEDS ORDERED: Dextrose 50% Syringe 50 ml 25 GM/50 ML SYRINGE IV PUSH PRN (01:18)
[2024-03-19] MEDS: Heparin 5000 UNITS/ML 1 mL VIAL SUBCUT ONE (02:06)
[2024-03-19] MEDS: Acetaminophen IV 1 GM/100ML 1,000 MG/100 ML BAG IV PRN (02:10)
[2024-03-19] MEDS: Lactated Ringers 1000 ml BAG 1,000 ML IV SCH ×2 (02:10→21:51)
[2024-03-19] MEDS: Morphine 2 MG/ML SYRINGE IV PRN (03:48)
[2024-03-19] MEDS ORDERED: Lidocaine 2% PF 5 ML VIAL ONE (14:48)
[2024-03-19] MEDS ORDERED: fentaNYL 100 mcg/2 ml 50 MCG/ML VIAL ONE ×2 (14:48→17:24)
[2024-03-19] MEDS ORDERED: Propofol 10 MG/ML 20 ML BTL ONE (14:48)
[2024-03-19] MEDS ORDERED: Midazolam 2 mg/2 ml VIAL 1 mg/ml 2 ml VIAL (2 mg) ONE (14:48)
[2024-03-19] MEDS ORDERED: Rocuronium 50 mg VIAL 10 mg/ml 5 ml VIAL (50 mg) ONE ×2 (15:32→17:07)
[2024-03-19] MEDS ORDERED: Bupivacaine 0.25% EPI 200,000 30 ML SDV ONE (16:08)
[2024-03-19] MEDS ORDERED: HYDROmorphone 0.5 MG/0.5 ML SYRINGE ONE (16:13)
[2024-03-19] MEDS ORDERED: Ondansetron 4 mg VIAL 2 MG/ML 2 ml VIAL ONE (16:48)
[2024-03-19] MEDS ORDERED: Acetaminophen IV 1 GM/100ML 1,000 MG/100 ML BAG IV ONE (19:06)
[2024-03-19] MEDS ORDERED: Dexamethasone IV 4 MG/ML VIAL 1 ml VIAL ONE (19:13)
[2024-03-19] MEDS ORDERED: Bupivacaine 0.25% SDV 30 ML ONE ×2 (19:25→19:28)
[2024-03-19] MEDS ORDERED: fentaNYL 100 mcg/2 ml 50 MCG/ML VIAL IV PRN (19:30)
[2024-03-19] MEDS ORDERED: Ondansetron 4 mg VIAL 2 MG/ML 2 ml VIAL IV PRN ×2 (19:30→20:52)
[2024-03-19] MEDS ORDERED: HYDROmorphone 1 MG/1 ML SYRINGE IV PRN (19:30)
[2024-03-19] MEDS ORDERED: Naloxone 0.4 mg VIAL 0.4 mg/ml 1 ml VIAL IV PRN (19:30)
[2024-03-19] MEDS ORDERED: Ondansetron ODT 4 mg TAB 4 MG TAB PO PRN (20:52)
[2024-03-19] MEDS ORDERED: Magnesium Hydroxide LIQ 30 ML UDC PO PRN (20:52)
[2024-03-19] MEDS ORDERED: Lactulose 30 ml UDC PO PRN (20:52)
[2024-03-19] MEDS: Magnesium Hydroxide LIQ 30 ML UDC PO SCH (21:42)
[2024-03-19] MEDS: ceFAZolin 1 GM ADVAN 1 GM in NS 0.9% 50 ML 50 ML IVPB SCH (21:51)
[2024-03-20] MEDS: Metoclopramide 5 MG/ML VIAL (10 mg) IV SLOW PU ONE (04:30)
[2024-03-20 06:15] LABS: Hemoglobin 11.9 g/dL (13.2-16.3); Platelet Count 142 10^3/uL (150-450)
[2024-03-20 07:03] LABS: Calcium 8.7 mg/dL (8.6-10.3); Creatinine, Serum 0.63 mg/dL (0.67-1.17); Potassium 4.8 mmol/L (3.5-5.0); eGFR CKD-EPI 101.7 (>60)
[2024-03-20] MEDS: Vitamin THERAPEUTIC TAB PO SCH (08:28)
[2024-03-20] MEDS: Enoxaparin 40 MG/0.4 ML SYR SUBCUT SCH (14:12)
[2024-03-20] MEDS: Enoxaparin 30 MG/0.3 ML SYR SUBCUT SCH (14:30)
[2024-03-21 07:00] LABS: Hematocrit 33.1 % (38-53); Hemoglobin 11.5 g/dL (13.2-16.3); Mean Platelet Volume 8.9 fL (7.5-11.2); Platelet Count 120 10^3/uL (150-450)
[2024-03-21 14:43] VITALS: BP 118/74
== END 2024-03-21 14:35 | disposition home health service (06) ==
LOC: ED 21:03 → EDHOLD 21:03 → SUATTDRO 03-19 01:16 → SSU 03-19 08:01
PROVIDERS: ADMIT Internal Medicine; ATTEND Student in an Organized Health Care Education/Training Program